=== PATIENT | female | born 1955 | race Hispanic/Latino ===

== ENCOUNTER 2017-12-29 17:13 | Inpatient (IN) | payer OTHER, MEDICARE ==
[~2017-12-29] VITALS: Ht 149.9 cm; Wt 66.7 kg
[2017-12-29] MEDS: SODIUM CHLORIDE 0.9% 1000ML 1,000 ML IV SCH (02:00)
[~2017-12-29 17:13] MED LIST: ADVIL 200 MG; AMLODIPINE BESYL5 MG PO; AMLODIPINE-BEN1 EAC3 PO; ASPIR 8181 MG PO; ATIVAN0.5 MG PO; ATIVAN1 MG PO; ATORVASTATIN CA20 MG PO; BACLOFEN10 MG PO; BENICAR20 MG PO; BENTYL10 MG PO; CEPHALEXIN500 MG PO; CYCLOBENZAPRINE10 MG PO; CYMBALTA30 MG PO; DIAZEPAM5 MG PO; DIOVAN80 MG PO; FERROUS SULFAT325 MG; FLAGYL500 MG PO; FLEXERIL10 MG PO; FUROSEMIDE20 MG PO; GABAPENTIN100 MG; GABAPENTIN100 MG PO; HYDROXYZINE HCL; KLOR-CON20 MEQ PO; LANTUS 3ML100 UNITS/ SC; LASIX20 MG PO; LEVAQUIN500 MG PO; LINZESS PO; LORATADINE10 MG PO; LORAZEPAM0.5 MG PO; METFORMIN HCL500 MG PO; METOPROLOL SUCC25 MG PO; NORCO 5-325 TA1 EACH PO; NORCO GT; NORVASC5 MG PO; NOVOLOG100 UNIT/3 SQ; PANTOPRAZOLE SO40 MG PO; TESSALON PERLE100 MG PO; TIZANIDINE HCL4 MG PO; TRAMADOL HCL50 MG; TRAMADOL-ACETAMI1 EA PO; TYLENOL PO; VERAPAMIL 40 MG; Z.0.AMBIEN10 MG PO; Z.0.CIPRO500 MG PO; Z.0.DICYCLOMINE HCL2 PO; Z.0.LANTUS 3ML100 UN SQ; Z.0.LORAZEPAM1 MG PO; Z.0.METRONIDAZOLE500 PO; Z.0.OMEPRAZOLE40 MG PO; Z.0.PROMETHAZINE HC2 PO; ZANTAC150 MG; ZOFRAN ODT4 MG PO; diovan
[2017-12-29] MEDS ORDERED: SODIUM CHLORIDE 0.9% 1000ML 1,000 ML IV STA (18:02)
[2017-12-29] MEDS ORDERED: MORPHINE SULFATE INJ 4 MG/ML INJ IV ONE (18:33)
[2017-12-29] MEDS ORDERED: ONDANSETRON HCL INJ 2 MG/ML VIAL IV ONE (18:33)
[2017-12-29 18:36] LABS: CLARITY,URINE CLOUDY (CLEAR); COLOR,URINE YELLOW (YELLOW); LEUKOCYTE ESTERASE ,URINE 1+ (NEGATIVE); NITRITE,URINE POSITIVE (NEGATIVE); PROTEIN,URINE DIPSTICK NEGATIVE (NEGATIVE)
[2017-12-29 18:37] LABS: BILIRUBIN,URINE NEGATIVE (NEGATIVE); KETONES,URINE NEGATIVE (NEGATIVE); URINE UROBILINOGEN 0.2 mg/dL (0.2 - 1)
[2017-12-29] MEDS ORDERED: DIATRIZOATE MEGL/DIATRIZOA SOD 30 ML BTL PO ONE (18:40)
[2017-12-29 18:44] LABS: BACTERIA,URINE MANY /HPF; EPITHELIAL CELLS,URINE FEW /LPF; MUCUS,URINE FEW (RARE); RBC,URINE 0-5 /HPF (0-5); WBC,URINE (MAN) 21-50 /HPF (0-5)
[2017-12-29 20:07] LABS: BASOPHILS # (AUTO) 0.1 (0.0-0.1); EOSINOPHILS # (AUTO) 0.2 (0.0-0.4); EOSINOPHILS % 2.3 % (0.0-6.0); HEMATOCRIT 33.4 % (34.2-44.1); HEMOGLOBIN 11.3 g/dL (12.0-16.0); LYMPHOCYTES # (AUTO) 2.4 (1.0-3.2); LYMPHOCYTES % 35.1 % (18.0-39.1); MEAN CORPUSCULAR HGB CONC 33.8 g/dL (31-35); MEAN CORPUSCULAR VOLUME 91.5 fL (81-99); MONOCYTES # (AUTO) 0.5 (0.2-0.8); MONOCYTES % 7.3 % (4.4-11.3); NEUTROPHILS # (AUTO) 3.7 (2.1-6.9); NEUTROPHILS % 54.2 % (38.7-80.0); PLATELET COUNT 237 x10e3/uL (140-360); RED BLOOD COUNT 3.65 x10e6/uL (3.6-5.1); RED CELL DISTRIBUTION WIDTH 12.9 % (11.7-14.4)
[2017-12-29 20:23] LABS: INR 1.02; PROTHROMBIN TIME 12.6 seconds (11.9-14.5)
[2017-12-29 20:24] LABS: PARTIAL THROMBOPLASTIN TIME 33.2 seconds (23.8-35.5)
[2017-12-29 20:28] LABS: ALBUMIN/GLOBULIN RATIO 1.1 (0.8-2.0); ANION GAP 14.1 mmol/L (8-16); CALCIUM 9.4 mg/dL (8.4-10.2); CREATININE, SERUM 1.24 mg/dL (0.57-1.11); POTASSIUM 4.1 mmol/L (3.5-5.1)
--- NOTE | 2017-12-29 21:03 | Diagnostic Imaging Report ---
EXAM: CT Abdomen and Pelvis WITHOUT contrast INDICATION: \S\ABDOMINAL PAIN, POSSIBLE GI BLEED R/O DIVERTICULITISY COMPARISON: CT abdomen and pelvis 09/09/2016. 04/14/2015. TECHNIQUE: Abdomen and pelvis were scanned utilizing a multidetector helical scanner from the lung base to the pubic symphysis without administration of IV contrast. Absence of intravenous contrast decreases sensitivity for detection of focal lesions and vascular pathology. Coronal and sagittal reformations were obtained. Routine protocol was performed. IV CONTRAST: None ORAL CONTRAST: Gastrografin COMPLICATIONS: None RADIATION DOSE: Total DLP: 489.72 mGy*cm Estimated effective dose: (DLP x 0.015 x size factor) mSv CTDIvol has been reviewed. It is below the limits set by the Radiation Protocol Committee (RPC). FINDINGS: LINES and TUBES: Partially visualized median sternotomy wires. LOWER THORAX: Unremarkable HEPATOBILIARY: No focal hepatic lesions. No biliary ductal dilation. GALLBLADDER: There are cholecystectomy clips. SPLEEN: No splenomegaly. PANCREAS: No focal masses or ductal dilatation. ADRENALS: No adrenal nodules KIDNEYS/URETERS: Bilateral lobulation versus scarring. No hydronephrosis. No cystic or solid mass lesions. No stones. GI TRACT: The postoperative changes of sigmoid resection. Previous colon is free of from the left retroperitoneum with majority of the bowel remaining in the midline or on the right aspect of the patient. No abnormal distention, wall thickening, or evidence of bowel obstruction. Appendix is not identified. PELVIC ORGANS/BLADDER: There are postop changes of hysterectomy. Both ovaries are not visualized. LYMPH NODES: No lymphadenopathy. VESSELS: There is mild atherosclerotic disease in the aorta and major arterial branches. Small vessel vascular calcifications. PERITONEUM / RETROPERITONEUM: No free air or fluid. BONES: Unremarkable. SOFT TISSUES: Bilateral gluteal granulomas. Right anterior Spigelian hernia measuring 1.8 x 3.8 cm with a wide neck. Multiple anterior abdominal wall diastases or protrusion of bowel. IMPRESSION: 1. Postoperative changes of the colon with previous sigmoid resection. The colon is now free from the left retroperitoneum with the majority of the colon in the midline or on the right abdomen. 2. Anterior abdominal wall eventration or protrusion of bowel. Right abdominal Spigelian hernia without evidence of incarceration. Signed by: Dr. Bernardo Mae M.D. on 12/29/2017 8:59 PM
[2017-12-29] MEDS ORDERED: MORPHINE SULFATE INJ 4 MG/ML INJ IV STA (22:45)
[2017-12-29] MEDS ORDERED: ONDANSETRON HCL INJ 2 MG/ML VIAL IV STA (23:10)
[2017-12-29] MEDS ORDERED: CEFTRIAXONE SOD 1 GM VIAL IV SCH (23:15)
[2017-12-30] VITALS (8 sets, daily range): BP systolic 153–192; BP diastolic 66–85
[2017-12-30] MEDS: PIPER-TAZ 3.375 GM 50 ML IV SCH ×4 (01:37→22:00)
[2017-12-30] MEDS: SODIUM CHLORIDE 0.9% 1000ML 1,000 ML IV SCH ×2 (02:00→13:38)
[2017-12-30 02:24] LABS: HEMOGLOBIN 10.3 g/dL (12.0-16.0)
[2017-12-30] MEDS: ONDANSETRON HCL INJ 2 MG/ML VIAL IV PRN ×3 (04:49→21:15)
[2017-12-30] MEDS: MORPHINE SULFATE 2 MG/ML SYR IV PRN ×4 (04:51→21:49)
[2017-12-30 05:54] LABS: BASOPHILS % 0.6 % (0.0-1.0); EOSINOPHILS # (AUTO) 0.2 (0.0-0.4); EOSINOPHILS % 3.3 % (0.0-6.0); HEMATOCRIT 30.9 % (34.2-44.1); HEMOGLOBIN 10.3 g/dL (12.0-16.0); LYMPHOCYTES # (AUTO) 2.2 (1.0-3.2); MEAN CORPUSCULAR HEMOGLOBIN 31.3 pg (28-32); MEAN CORPUSCULAR HGB CONC 33.3 g/dL (31-35); MEAN CORPUSCULAR VOLUME 93.9 fL (81-99); MONOCYTES # (AUTO) 0.5 (0.2-0.8); MONOCYTES % 7.8 % (4.4-11.3); NEUTROPHILS # (AUTO) 3.3 (2.1-6.9); NEUTROPHILS % 52.8 % (38.7-80.0); PLATELET COUNT 218 x10e3/uL (140-360); RED BLOOD COUNT 3.29 x10e6/uL (3.6-5.1); RED CELL DISTRIBUTION WIDTH 12.9 % (11.7-14.4)
[2017-12-30 06:18] LABS: ALBUMIN 3.7 g/dL (3.5-5.0); ALBUMIN/GLOBULIN RATIO 1.2 (0.8-2.0); ANION GAP 9.4 mmol/L (8-16); CALCIUM 8.8 mg/dL (8.4-10.2); CREATININE, SERUM 1.07 mg/dL (0.57-1.11); POTASSIUM 4.4 mmol/L (3.5-5.1)
[2017-12-30] MEDS ORDERED: GABAPENTIN100 MG PO (07:09)
[2017-12-30] MEDS ORDERED: TAMSULOSIN HCL0.4 MG PO (07:09)
[2017-12-30] MEDS ORDERED: FUROSEMIDE40 MG PO (07:09)
[2017-12-30] MEDS ORDERED: HUMALOG100 UNIT/1 SC (07:09)
[2017-12-30] MEDS ORDERED: FOLIC ACID1 MG PO (07:09)
[2017-12-30] MEDS ORDERED: FERROUS SULFAT325 MG PO (07:09)
[2017-12-30] MEDS ORDERED: TIZANIDINE HCL4 M1 PO (07:09)
[2017-12-30] MEDS ORDERED: RANITIDINE HCL150 M1 PO (07:09)
[2017-12-30] MEDS ORDERED: CYMBALTA30 MG PO (07:09)
[2017-12-30] MEDS ORDERED: ALPRAZOLAM0.5 M1 PO (07:09)
[2017-12-30] MEDS ORDERED: BENZONATATE 100 MG CAP PO PRN (07:30)
--- NOTE | 2017-12-30 07:46 | History and Physical ---
Patient is a 62-year-old lady with a history of GI problems, coronary artery disease, was in her usual state of health until she started to have pain described as right upper quadrant and sharp in nature, and also associated with some bleeding too, which was quantified as rectal bleeding of small amounts, and also moderate amount of black tarry stools. The patient had symptoms like this before after her cardiac surgery, and did have to have an exploratory laparotomy and a colostomy after a GI bleed. PAST MEDICAL HISTORY: History of hypertension, history of hyperlipidemia, history of diverticulitis, history of diabetes mellitus, history of chronic low back pain, history of depression, history of anxiety, history of constipation, history of CHF too. MEDICATIONS: She takes at home are: 1. Alprazolam 0.5 mg. 2. Amlodipine. 3. Benazepril. 4. Aspirin. 5. Atorvastatin. 6. Benzonatate. 7. Dicyclomine. 8. Duloxetine. 9. Ferrous sulfate. 10. Folic acid. 11. Furosemide 20 mg. 12. Insulin glargine. 13. Levaquin. 14. Lorazepam. 15. Metformin. 16. Metoprolol. 17. Metronidazole. 18. Ondansetron. 19. Pantoprazole. 20. Ranitidine. 21. Tamsulosin. 22. Tizanidine. 23. Tramadol. 24. Losartan. SURGICAL HISTORY: History of bowel surgery with resection, coronary artery bypass, history of colostomy with takedown times 2, right knee surgery. ALLERGIES: CEPHALOSPORINS AND SULFA. THE PATIENT IS ALSO ALLERGIC TO KETORALAC. SOCIAL HISTORY: History of nonsmoker. Occasional alcohol use. FAMILY HISTORY: Diabetes and hypertension in the family. PHYSICAL EXAMINATION GENERAL: The patient is alert and oriented times 3. VITAL SIGNS: Temperature is 96.5, blood pressure is 153/63. HEENT: Normocephalic and atraumatic. Pupils reactive to light and accommodation. CV: S1 and S2 normal. Regular rate and rhythm. ABDOMEN: Tender in the right upper quadrant. BACK: Tenderness throughout. No CVA tenderness. EXTREMITIES: No clubbing. No cyanosis. No edema. NEURO: Alert and oriented times 3. Initial CT showed postoperative changes consistent with previous bowel resection. Colon is now free from the left retroperitoneum with the majority of the colon in the midline of the right abdomen. Anterior abdominal wall infiltration of the bowel. Right abdominal spigelian hernia without evidence of incarceration. LABORATORY TESTS: Hemoglobin is 11.3, hematocrit 33.4. Chemistry: Sodium 134, BUN was 27 and creatinine 1.24. UA with negative bacteria. ASSESSMENT 1. Acute right upper quadrant pain. 2. Occult gastrointestinal bleed with melena. 3. Anemia of blood loss. 4. Chronic renal insufficiency. 5. Acute urinary tract infection. 6. Coronary artery disease. 7. Diabetes mellitus. 8. History of multiple chronic problems, including back pain. PLAN: The patient is on Zosyn right now, and also on morphine, ondansetron, sodium chloride, and pantoprazole. GI has been consulted. We will restart her cardiac medicine except for her . Will continue monitoring the patient and possible EGD today. Job#: [id number] TAMRA
[2017-12-30] MEDS: TAMSULOSIN HCL 0.4 MG CAP PO SCH (09:00)
[2017-12-30] MEDS: GABAPENTIN 100 MG CAP PO SCH (09:00)
[2017-12-30] MEDS: DULOXETINE HCL 30 MG DELAYED RELEASE PO SCH (09:00)
[2017-12-30] MEDS: VALSARTAN 80 MG TAB PO SCH (09:00)
[2017-12-30] MEDS: FOLIC ACID 1 MG TAB PO SCH (09:00)
[2017-12-30] MEDS ORDERED: FUROSEMIDE 20 MG TAB PO SCH (09:00)
[2017-12-30] MEDS: METOPROLOL SUCCINATE 25 MG TAB XL PO SCH ×2 (09:00→17:00)
[2017-12-30] MEDS: ALPRAZOLAM 0.5 MG TAB PO SCH ×2 (09:00→17:00)
[2017-12-30] MEDS: FUROSEMIDE 40 MG TAB PO SCH ×2 (09:00→17:00)
[2017-12-30] MEDS: PANTOPRAZOLE 40 MG 10ML VIAL IV SCH ×2 (09:11→17:00)
[2017-12-30 10:37] LABS: IRON 98 ug/dL (50-170)
[2017-12-30 12:05] LABS: HEMATOCRIT 31.5 % (34.2-44.1); HEMOGLOBIN 10.6 g/dL (12.0-16.0)
[2017-12-30] MEDS ORDERED: HYDRALAZINE HCL 20 MG/ML VIAL IV PRN (16:30)
[2017-12-30] MEDS: METOPROLOL TARTRATE INJ 1 MG/ML VIAL IV PRN (17:01)
[2017-12-30 19:36] LABS: HEMATOCRIT 31.7 % (34.2-44.1); HEMOGLOBIN 10.8 g/dL (12.0-16.0)
[2017-12-30] MEDS ORDERED: ATORVASTATIN 20 MG TAB PO SCH (21:00)
[2017-12-30] MEDS: INSULIN DETEMIR 100 UNIT/ML PEN SQ SCH (21:00)
[2017-12-30] MEDS: ATORVASTATIN 40 MG TAB PO SCH (21:00)
--- NOTE | 2017-12-30 21:33 | Consultation ---
DATE OF CONSULTATION: December 30, 2017 GI CONSULT NOTE REFERRING PHYSICIAN: Phong Malik MD REASON FOR CONSULT: Melena for 3 to 4 days. HISTORY OF PRESENTING ILLNESS: [id number] very pleasant female with past medical history of hypertension, hyperlipidemia, type 2 diabetes, coronary artery disease status post CABG, history of bowel surgeries with colostomies, colostomy takedown x2. She has been passing dark stool for last couple of days. Denies any prior history of peptic ulcer disease. She is not chronically on any NSAIDs. No associated abdominal pain. Hemodynamically stable. Hemoglobin was 11.3 that subsequently dropped down to 10.8. Stool has been tested heme positive. She is on Protonix IV twice daily. GI has been consulted for evaluation of melena. REVIEW OF SYSTEMS: Twelve-point system reviewed, symptomatology is limited to GI system. PAST MEDICAL HISTORY: Hypertension, hyperlipidemia, history of diverticulitis, type 2 diabetes, chronic low backache, depression, anxiety, chronic constipation, history of congestive heart failure. PAST SURGICAL HISTORY: Exploratory laparotomy with some bowel surgery x2, what patient describes seems likely she has had a perforated diverticulitis requiring colonic resection, followed by colostomy, colostomy takedown already done. CABG. FAMILY HISTORY: Noncontributory. Negative for any GI or [employer] malignancies. SOCIAL HISTORY: No smoking, seldom drinks alcohol, never used any illicit drugs. ALLERGIES: CEPHALOSPORIN AND SULFA. HOME MEDICATIONS: Reviewed MAR. She is on extensive list of medications. Inpatient medication list also reviewed. PHYSICAL EXAMINATION: VITAL SIGNS: Temperature 97.3, pulse 72, respiration 20, blood pressure 192/81, oxygen saturation 100% on room air. GENERAL: Not in any acute distress. HEENT: Moist mucous membranes. Anicteric sclerae. NECK: No neck or axillary adenopathy. CVS: S1 and S2. Regular. LUNGS: Bilaterally grossly clear. ABDOMEN: Soft. Healed midline laparotomy scar. Nondistended, nontender. No mass or hernia. Positive bowel sounds. EXTREMITIES: Warm. No leg edema. LAB: WBC 6.83; hemoglobin 11.3, subsequently dropped down to 10.8; hematocrit 33.4; MCV 91.5; platelet count 237,000. PT 12.6, INR 1.02, PTT 33.2. Sodium 139, potassium 4.4, chloride 112, bicarb 22, BUN 26, creatinine 1.07. Liver enzymes normal. Stool occult positive. CT of the abdomen and pelvis without contrast showed: 1. Postoperative changes of colon with previous sigmoid resection. The colon is now free from left retroperitoneum with majority of the colon in the midline or on the right abdomen. 2. Anterior abdominal wall eventration or protrusion of bowel. Right abdominal spigelian hernia without evidence of incarceration. IMPRESSION: Melena, hemodynamically stable without significant drop in hemoglobin. Stool is also hemoccult positive. PLAN: I do not suspect any active GI bleeding, therefore do not recommend to give her any PPI infusion. Clear liquid diet. EGD by my associate Dr. La tomorrow. Further recommendations based upon endoscopic findings. I thank Dr. Malik for allowing me to participate in the care of this patient. Job#: [id number]
[2017-12-31] VITALS (7 sets, daily range): BP systolic 131–176; BP diastolic 60–73
[2017-12-31] MEDS: MORPHINE SULFATE 2 MG/ML SYR IV PRN ×4 (04:07→22:00)
[2017-12-31] MEDS: ONDANSETRON HCL INJ 2 MG/ML VIAL IV PRN ×4 (04:07→22:00)
[2017-12-31 05:38] LABS: BASOPHILS % 0.6 % (0.0-1.0); EOSINOPHILS # (AUTO) 0.2 (0.0-0.4); EOSINOPHILS % 3.5 % (0.0-6.0); HEMATOCRIT 31.1 % (34.2-44.1); HEMOGLOBIN 10.1 g/dL (12.0-16.0); LYMPHOCYTES # (AUTO) 1.5 (1.0-3.2); LYMPHOCYTES % 29.7 % (18.0-39.1); MEAN CORPUSCULAR HEMOGLOBIN 30.4 pg (28-32); MEAN CORPUSCULAR HGB CONC 32.5 g/dL (31-35); MEAN CORPUSCULAR VOLUME 93.7 fL (81-99); MONOCYTES # (AUTO) 0.3 (0.2-0.8); MONOCYTES % 6.5 % (4.4-11.3); NEUTROPHILS % 59.5 % (38.7-80.0); PLATELET COUNT 213 x10e3/uL (140-360); RED BLOOD COUNT 3.32 x10e6/uL (3.6-5.1); RED CELL DISTRIBUTION WIDTH 12.9 % (11.7-14.4)
[2017-12-31] MEDS: PIPER-TAZ 3.375 GM 50 ML IV SCH ×3 (05:39→21:50)
[2017-12-31 06:01] LABS: ALBUMIN 3.6 g/dL (3.5-5.0); ALBUMIN/GLOBULIN RATIO 1.1 (0.8-2.0); ANION GAP 10.4 mmol/L (8-16); CALCIUM 9.1 mg/dL (8.4-10.2); CREATININE, SERUM 0.98 mg/dL (0.57-1.11); POTASSIUM 4.4 mmol/L (3.5-5.1)
[2017-12-31 09:02] LABS: % IRON SATURATION 27 % (15-50); TOTAL IRON BINDING CAPACITY 360 ug/dL (261-478); TRANSFERRIN 257 mg/dL (180-382)
[2017-12-31] MEDS: PANTOPRAZOLE 40 MG 10ML VIAL IV SCH ×2 (09:22→15:42)
[2017-12-31] MEDS: METOPROLOL SUCCINATE 25 MG TAB XL PO SCH ×2 (09:22→16:09)
[2017-12-31] MEDS: TAMSULOSIN HCL 0.4 MG CAP PO SCH (09:22)
[2017-12-31] MEDS: VALSARTAN 80 MG TAB PO SCH (09:22)
[2017-12-31] MEDS: ALPRAZOLAM 0.5 MG TAB PO SCH ×2 (09:22→16:09)
[2017-12-31] MEDS: DULOXETINE HCL 30 MG DELAYED RELEASE PO SCH (09:22)
[2017-12-31] MEDS: GABAPENTIN 100 MG CAP PO SCH (09:22)
[2017-12-31] MEDS: FOLIC ACID 1 MG TAB PO SCH (09:22)
[2017-12-31] MEDS: FUROSEMIDE 40 MG TAB PO SCH ×2 (09:35→16:07)
[2017-12-31] MEDS: SODIUM CHLORIDE 0.9% 1000ML 1,000 ML IV SCH ×3 (09:35→22:53)
[2017-12-31 11:58] LABS: HEMATOCRIT 32.6 % (34.2-44.1); HEMOGLOBIN 10.9 g/dL (12.0-16.0)
[2017-12-31] MEDS: SUCRALFATE 1 GM TAB PO SCH ×2 (15:42→21:50)
[2017-12-31] MEDS ORDERED: PROPOFOL IV EMULSION 10 MG/ML 20 ML VIAL ONE (17:41)
[2017-12-31] MEDS ORDERED: LIDOCAINE HCL 2% LOCAL INJ 5 ML SDV VIAL INJ ONE (17:41)
[2017-12-31 18:29] LABS: HEMATOCRIT 33.3 % (34.2-44.1); HEMOGLOBIN 11.3 g/dL (12.0-16.0)
[2017-12-31] MEDS ORDERED: FENTANYL CITRATE/PF 100MCG/2 ML INJ ONE (20:12)
[2017-12-31] MEDS ORDERED: MIDAZOLAM HCL 2 MG/2 ML VIAL ONE (20:12)
[2017-12-31] MEDS: ATORVASTATIN 40 MG TAB PO SCH (21:50)
[2017-12-31] MEDS: INSULIN DETEMIR 100 UNIT/ML PEN SQ SCH (21:50)
[2018-01-01] VITALS (8 sets, daily range): BP systolic 121–158; BP diastolic 59–68
[2018-01-01] MEDS: MORPHINE SULFATE 2 MG/ML SYR IV PRN ×3 (04:23→21:32)
[2018-01-01] MEDS: SODIUM CHLORIDE 0.9% 1000ML 1,000 ML IV SCH ×3 (04:23→22:53)
[2018-01-01] MEDS: ONDANSETRON HCL INJ 2 MG/ML VIAL IV PRN ×3 (04:23→21:32)
[2018-01-01] MEDS: PIPER-TAZ 3.375 GM 50 ML IV SCH ×3 (05:02→21:32)
[2018-01-01 05:40] LABS: BASOPHILS # (AUTO) 0.1 (0.0-0.1); EOSINOPHILS # (AUTO) 0.2 (0.0-0.4); EOSINOPHILS % 3.6 % (0.0-6.0); HEMATOCRIT 30.6 % (34.2-44.1); HEMOGLOBIN 10.7 g/dL (12.0-16.0); LYMPHOCYTES # (AUTO) 1.4 (1.0-3.2); MEAN CORPUSCULAR HEMOGLOBIN 31.7 pg (28-32); MEAN CORPUSCULAR VOLUME 90.5 fL (81-99); MONOCYTES # (AUTO) 0.5 (0.2-0.8); MONOCYTES % 9.3 % (4.4-11.3); NEUTROPHILS # (AUTO) 2.8 (2.1-6.9); NEUTROPHILS % 56.9 % (38.7-80.0); PLATELET COUNT 200 x10e3/uL (140-360); RED BLOOD COUNT 3.38 x10e6/uL (3.6-5.1); RED CELL DISTRIBUTION WIDTH 12.7 % (11.7-14.4)
[2018-01-01] MEDS: METOPROLOL SUCCINATE 25 MG TAB XL PO SCH ×2 (09:00→17:00)
[2018-01-01] MEDS: PANTOPRAZOLE 40 MG 10ML VIAL IV SCH ×2 (09:39→17:00)
[2018-01-01] MEDS: SUCRALFATE 1 GM TAB PO SCH ×4 (09:39→21:32)
[2018-01-01] MEDS: DULOXETINE HCL 30 MG DELAYED RELEASE PO SCH (09:39)
[2018-01-01] MEDS: VALSARTAN 80 MG TAB PO SCH (09:39)
[2018-01-01] MEDS: FUROSEMIDE 40 MG TAB PO SCH ×2 (09:40→17:00)
[2018-01-01] MEDS: ALPRAZOLAM 0.5 MG TAB PO SCH ×2 (09:40→17:00)
[2018-01-01] MEDS: GABAPENTIN 100 MG CAP PO SCH (09:40)
[2018-01-01] MEDS: FOLIC ACID 1 MG TAB PO SCH (09:40)
[2018-01-01] MEDS: TAMSULOSIN HCL 0.4 MG CAP PO SCH (09:40)
[2018-01-01 12:00] LABS: HEMATOCRIT 31.4 % (34.2-44.1); HEMOGLOBIN 10.6 g/dL (12.0-16.0)
[2018-01-01] MEDS: INSULIN REGULAR, HUMAN 100 UNIT/1 ML 3ML VIAL SQ SCH ×3 (12:45→21:32)
[2018-01-01] MEDS ORDERED: DEXTROSE 50% SYRINGE 50 ML IV PRN (12:45)
[2018-01-01] MEDS: INSULIN DETEMIR 100 UNIT/ML PEN SQ SCH (21:32)
[2018-01-01] MEDS: ATORVASTATIN 40 MG TAB PO SCH (21:32)
[2018-01-01] MEDS: DIPHENOXYLATE/ATROPINE TAB PO PRN (22:44)
[2018-01-02] VITALS (7 sets, daily range): BP systolic 106–150; BP diastolic 51–65
[2018-01-02] MEDS: SODIUM CHLORIDE 0.9% 1000ML 1,000 ML IV SCH ×3 (01:54→22:57)
[2018-01-02] MEDS: MORPHINE SULFATE 2 MG/ML SYR IV PRN ×4 (03:45→20:11)
[2018-01-02] MEDS: ONDANSETRON HCL INJ 2 MG/ML VIAL IV PRN ×3 (03:45→20:10)
[2018-01-02] MEDS: PIPER-TAZ 3.375 GM 50 ML IV SCH ×3 (05:35→22:00)
[2018-01-02] MEDS: INSULIN REGULAR, HUMAN 100 UNIT/1 ML 3ML VIAL SQ SCH ×4 (07:30→21:30)
[2018-01-02] MEDS: SUCRALFATE 1 GM TAB PO SCH ×4 (08:22→21:30)
[2018-01-02] MEDS: FOLIC ACID 1 MG TAB PO SCH (08:22)
[2018-01-02] MEDS: FUROSEMIDE 40 MG TAB PO SCH ×2 (08:22→17:00)
[2018-01-02] MEDS: PANTOPRAZOLE 40 MG 10ML VIAL IV SCH (08:22)
[2018-01-02] MEDS: GABAPENTIN 100 MG CAP PO SCH (08:22)
[2018-01-02] MEDS: ALPRAZOLAM 0.5 MG TAB PO SCH ×2 (08:22→17:00)
[2018-01-02] MEDS: TAMSULOSIN HCL 0.4 MG CAP PO SCH (08:22)
[2018-01-02] MEDS: VALSARTAN 80 MG TAB PO SCH (08:23)
[2018-01-02] MEDS: DULOXETINE HCL 30 MG DELAYED RELEASE PO SCH (08:23)
[2018-01-02] MEDS: METOPROLOL SUCCINATE 25 MG TAB XL PO SCH ×2 (08:23→17:00)
[2018-01-02] MEDS: DIPHENOXYLATE/ATROPINE TAB PO PRN (11:24)
--- NOTE | 2018-01-02 20:25 | Progress Note ---
DATE: January 02, 2018 GASTROENTEROLOGY PROGRESS NOTE SUBJECTIVE: Patient continues to complain about intermittently persistent severe right lower quadrant pain. She is requiring Dilaudid almost every 4 hours. No associated nausea or vomiting. She is also having frequent watery diarrhea. Stool has been tested negative for C. diff. Stool is light brown. No blood. It is no longer dark. REVIEW OF SYSTEMS GENERAL: No fever or chills. RESPIRATORY: No cough or expectoration. CV: No chest pain or palpitations. MEDICATIONS: Reviewed as per AUG. On pantoprazole 40 mg twice daily. PHYSICAL EXAMINATION VITAL SIGNS: Temperature 96.9, pulse 61, respirations 18, blood pressure 130/60, oxygen saturation 99% on room air. GENERAL: Seems to be in acute distress. HEENT: Oral mucosa is moist. Anicteric sclerae. CVS: S1 and S2 regular. LUNGS: Bilaterally grossly clear. ABDOMEN: Soft. Palpable localized right lower quadrant tenderness with some guarding without any rebound or any rigidity. Left lower quadrant exam is completely benign. Bowel sounds present. EXTREMITIES: Warm. No leg edema. LABS: Hemoglobin remains stable from 11.3, 10.7 and 10.6. IMPRESSION 1. Melena secondary to gastric ulcer: Hemoglobin is stable. Melena resolved. 2. New-onset diarrhea, Clostridium difficile ruled out. 3. Right lower quadrant pain concerning for possible appendicitis: The computerized tomography done on this admission with intravenous and oral contrast failed to visualize the appendix. PLAN: From GI standpoint, agree to continue PPI twice daily. Avoid NSAIDs. Urgent surgery consult to rule out appendicitis. Continue supportive care. In the interim, keep the patient n.p.o. until seen by surgeon. Job#: [id number] OR
[2018-01-02] MEDS: INSULIN DETEMIR 100 UNIT/ML PEN SQ SCH (21:00)
--- NOTE | 2018-01-02 21:26 | Consultation ---
DATE OF CONSULTATION: January 02, 2018 CHIEF COMPLAINT: Abdominal pain. HISTORY OF PRESENT ILLNESS: The patient is a 63-year-old female with history of chronic right lower quadrant abdominal pain for a days with diarrhea. Patient states she had noticed some bleeding per rectum also with dark stool. Patient had a history of hypertension, hyperlipidemia, coronary artery disease, diabetes, diverticulitis, congestive heart failure, anxiety. SURGICAL HISTORY: Positive for coronary artery bypass graft, colon resection with colostomy, knee surgery. ALLERGIES: CEPHALOSPORIN AND SULFA AND ALSO TORADOL. SOCIAL HABITS: No smoking. Social drinking only. REVIEW OF SYSTEMS: No chest pain or shortness of breath. EXAM VITALS: Stable. Afebrile. GENERAL: Patient is awake, alert, in [id number] discomfort. HEENT: Sclerae nonicteric. NECK: Supple. LUNGS: Clear. HEART: Regular rate and rhythm. ABDOMEN: Soft. There is some guarding, tenderness in the right lower quadrant without rebound. EXTREMITIES: Without cyanosis, edema. Hemoglobin of 10, white cell count of 5. Creatinine is 0.9. Liver function test unremarkable. Lipase 13. CT of the abdomen showed status post colon surgery, abdominal Spigelian hernia on the right without incarceration. ASSESSMENT: Abdominal pain and diarrhea and melena. Gastrointestinal workup in progress. PLAN: Await colonoscopy. Patient may need diagnostic laparoscopy and possible repair of Spigelian hernia. Thank you for consultation. Job#: [id number]
[2018-01-02] MEDS: ATORVASTATIN 40 MG TAB PO SCH (21:30)
[2018-01-02] MEDS: LORAZEPAM 0.5 MG TAB PO PRN (22:50)
[2018-01-03] VITALS (7 sets, daily range): BP systolic 119–169; BP diastolic 58–95
[2018-01-03] MEDS: ONDANSETRON HCL INJ 2 MG/ML VIAL IV PRN ×4 (00:45→21:50)
[2018-01-03] MEDS: MORPHINE SULFATE 2 MG/ML SYR IV PRN ×6 (00:50→21:50)
[2018-01-03] MEDS: PIPER-TAZ 3.375 GM 50 ML IV SCH ×3 (05:30→22:04)
[2018-01-03] MEDS: SODIUM CHLORIDE 0.9% 1000ML 1,000 ML IV SCH ×3 (06:50→18:30)
[2018-01-03] MEDS: INSULIN REGULAR, HUMAN 100 UNIT/1 ML 3ML VIAL SQ SCH ×4 (07:30→21:10)
[2018-01-03] MEDS: SUCRALFATE 1 GM TAB PO SCH ×4 (07:30→21:03)
[2018-01-03] MEDS: FOLIC ACID 1 MG TAB PO SCH (07:36)
[2018-01-03] MEDS: TAMSULOSIN HCL 0.4 MG CAP PO SCH (07:36)
[2018-01-03] MEDS: VALSARTAN 80 MG TAB PO SCH (07:36)
[2018-01-03] MEDS: DULOXETINE HCL 30 MG DELAYED RELEASE PO SCH (07:36)
[2018-01-03] MEDS: GABAPENTIN 100 MG CAP PO SCH (07:37)
[2018-01-03] MEDS: PANTOPRAZOLE 40 MG 10ML VIAL IV SCH ×2 (07:56→17:07)
[2018-01-03] MEDS: FUROSEMIDE 40 MG TAB PO SCH ×2 (09:00→17:07)
[2018-01-03] MEDS ORDERED: PANTOPRAZOLE SOD 40 MG TABEC PO SCH (09:00)
[2018-01-03] MEDS: METOPROLOL SUCCINATE 25 MG TAB XL PO SCH ×2 (09:00→17:07)
[2018-01-03] MEDS: ALPRAZOLAM 0.5 MG TAB PO SCH ×2 (09:00→17:07)
[2018-01-03] MEDS ORDERED: BUPIVACAINE 0.5%/EPI 30 ML SDV INJ ONE (14:02)
[2018-01-03 16:01] LABS: CREATINE KINASE MB 1.7 ng/mL (0-5.0)
[2018-01-03] MEDS: ATORVASTATIN 40 MG TAB PO SCH (21:03)
[2018-01-03] MEDS: INSULIN DETEMIR 100 UNIT/ML PEN SQ SCH (21:10)
[2018-01-03] MEDS: LORAZEPAM 0.5 MG TAB PO PRN (22:04)
[2018-01-04 00:57] VITALS: BP 156/65
[2018-01-04] MEDS: MORPHINE SULFATE 2 MG/ML SYR IV PRN ×6 (02:11→23:32)
[2018-01-04 04:00] VITALS: BP 157/67
[2018-01-04] MEDS: PIPER-TAZ 3.375 GM 50 ML IV SCH ×3 (06:12→21:55)
[2018-01-04] MEDS: SODIUM CHLORIDE 0.9% 1000ML 1,000 ML IV SCH ×3 (06:12→23:26)
[2018-01-04] MEDS: ONDANSETRON HCL INJ 2 MG/ML VIAL IV PRN ×3 (06:12→18:50)
[2018-01-04 08:20] VITALS: BP 140/62
[2018-01-04] MEDS: PANTOPRAZOLE 40 MG 10ML VIAL IV SCH ×2 (08:27→17:26)
[2018-01-04] MEDS: SUCRALFATE 1 GM TAB PO SCH ×4 (08:27→20:30)
[2018-01-04] MEDS: METOPROLOL SUCCINATE 25 MG TAB XL PO SCH ×2 (08:27→17:26)
[2018-01-04] MEDS: ALPRAZOLAM 0.5 MG TAB PO SCH ×2 (08:27→17:26)
[2018-01-04] MEDS: VALSARTAN 80 MG TAB PO SCH (08:27)
[2018-01-04] MEDS: FUROSEMIDE 40 MG TAB PO SCH ×2 (08:27→17:26)
[2018-01-04] MEDS: GABAPENTIN 100 MG CAP PO SCH (08:27)
[2018-01-04] MEDS: DULOXETINE HCL 30 MG DELAYED RELEASE PO SCH (08:27)
[2018-01-04] MEDS: TAMSULOSIN HCL 0.4 MG CAP PO SCH (08:27)
[2018-01-04] MEDS: FOLIC ACID 1 MG TAB PO SCH (08:27)
[2018-01-04] MEDS: INSULIN REGULAR, HUMAN 100 UNIT/1 ML 3ML VIAL SQ SCH ×4 (08:32→20:30)
--- NOTE | 2018-01-04 10:55 | Consultation ---
DATE OF CONSULTATION: CARDIOLOGY CONSULTATION CONSULTING PHYSICIAN: Dr. Phong Malik REASON FOR CONSULTATION: Ongoing cardiac care. HISTORY OF PRESENT ILLNESS: Ms. Redmond is a patient that is well known to our practice. She is 63-year-old female with a pertinent past medical history of ongoing GI problem, coronary artery disease status post coronary artery bypass in October of 2016. She states that she came into the hospital due to noticing very dark stool and also abdominal pain and nausea, and for these reason, she sought care. At this present time, she denies any chest pain, shortness of breath, palpitation, cough, edema, orthopnea, or dizziness. She does endorse some ongoing nausea. PAST MEDICAL HISTORY: Includes hypertension, hyperlipidemia, diverticulitis, diabetes mellitus, chronic low back pain, depression, anxiety, constipation, CAD status post bypass. PAST SURGICAL HISTORY: Includes bowel surgery with resection, coronary artery disease status post coronary artery bypass, history of colostomy, right knee surgery. SOCIAL HISTORY: with children. Nonsmoker, uses and drinks alcohol occasionally. FAMILY HISTORY: Pertinent for diabetes and hypertension. CARDIOVASCULAR MEDICATIONS: 1. Losartan 80 mg p.o. daily. 2. Metoprolol 25 mg p.o. daily. 3. Gabapentin 100 mg p.o. daily. 4. Furosemide 40 mg p.o. b.i.d. 5. Atorvastatin 40 mg p.o. at bedtime. LABS: No new labs today. CT scan from December 29, 2017 with postoperative changes of the colon with previous sigmoid resection. The colon is now free from left retroperitoneum with the majority of the colon in the midline or on the right abdomen, anterior abdominal wall eventration or protrusion of bowel, right abdominal spigelian hernia without evidence of incarceration. TELEMETRY: Sinus rhythm. PHYSICAL EXAMINATION: VITAL SIGNS: Temperature 97.4, pulse 66, respiratory rate 18, blood pressure 140/62, oxygen saturation 98% on room air. GENERAL: Alert and oriented x3, resting comfortably in bed, does not appear to be in any acute distress. LUNGS: Clear to auscultation throughout. No wheezing or rhonchi or crackles. CARDIOVASCULAR: Regular rate and rhythm. Normal S1, S2. No S3 or S4 auscultated. ABDOMEN: Nontender. Normoactive bowel sounds. EXTREMITIES: Lower extremities 2+ pedal pulses, no edema. ASSESSMENT: 1. Spigelian hernia. 2. Coronary artery disease status post coronary artery bypass graft. 3. History of congestive heart failure with a recent normal ejection fraction in the office. 4. Hypertension. 5. Hyperlipidemia. 6. Urinary tract infection. 7. Chronic renal insufficiency. 8. Gastrointestinal bleeding with melena. PLAN: From a cardiac standpoint, patient okay to undergo hernia repair. Continue the above list of cardiac medication. Maintain patient on telemetry. Continue antimicrobial therapy and pain management per primary team. Will continue to follow this patient very closely. Thank you for this consultation. Dictated By: Amanda Bone NP Job#: [id number]
[2018-01-04 11:55] VITALS: BP 172/68
[2018-01-04 16:56] VITALS: BP 148/62
[2018-01-04 20:00] VITALS: BP 155/70
[2018-01-04] MEDS: HYDROMORPHONE 1MG/1ML INJ IV PRN (20:23)
[2018-01-04] MEDS: ATORVASTATIN 40 MG TAB PO SCH (20:30)
[2018-01-04] MEDS: INSULIN DETEMIR 100 UNIT/ML PEN SQ SCH (21:30)
[2018-01-04] MEDS: LORAZEPAM 0.5 MG TAB PO PRN (23:32)
[2018-01-05] VITALS: BP 166/74
[2018-01-05] MEDS: HYDROMORPHONE 1MG/1ML INJ IV PRN ×3 (01:09→19:52)
[2018-01-05] MEDS: ONDANSETRON HCL INJ 2 MG/ML VIAL IV PRN ×2 (01:09→19:52)
[2018-01-05 04:00] VITALS: BP 158/68
[2018-01-05] MEDS ORDERED: DIPHENHYDRAMINE HCL INJ 50 MG/ML VIAL IM ONE (06:15)
[2018-01-05] MEDS: SODIUM CHLORIDE 0.9% 1000ML 1,000 ML IV SCH ×3 (06:21→22:53)
[2018-01-05] MEDS: PIPER-TAZ 3.375 GM 50 ML IV SCH ×3 (06:21→22:09)
[2018-01-05] MEDS: INSULIN REGULAR, HUMAN 100 UNIT/1 ML 3ML VIAL SQ SCH ×4 (07:30→21:00)
[2018-01-05] MEDS: SUCRALFATE 1 GM TAB PO SCH ×4 (07:30→20:20)
[2018-01-05 07:43] VITALS: BP 160/67
[2018-01-05 08:24] VITALS: BP 160/67
[2018-01-05] MEDS: PANTOPRAZOLE 40 MG 10ML VIAL IV SCH ×2 (08:24→16:00)
[2018-01-05] MEDS: TAMSULOSIN HCL 0.4 MG CAP PO SCH (09:00)
[2018-01-05] MEDS: ALPRAZOLAM 0.5 MG TAB PO SCH ×3 (09:00→22:33)
[2018-01-05] MEDS: METOPROLOL SUCCINATE 25 MG TAB XL PO SCH ×2 (09:00→17:00)
[2018-01-05] MEDS: GABAPENTIN 100 MG CAP PO SCH (09:00)
[2018-01-05] MEDS: FOLIC ACID 1 MG TAB PO SCH (09:00)
[2018-01-05] MEDS: VALSARTAN 80 MG TAB PO SCH (09:00)
[2018-01-05] MEDS: DULOXETINE HCL 30 MG DELAYED RELEASE PO SCH (09:00)
[2018-01-05] MEDS: FUROSEMIDE 40 MG TAB PO SCH ×2 (09:00→17:00)
[2018-01-05] MEDS ORDERED: BUPIVACAINE HCL 0.5% INJ 30 ML VIAL INJ ONE (11:00)
[2018-01-05] MEDS ORDERED: BACITRACIN 50,000 UNIT VIAL ONE (11:00)
[2018-01-05] MEDS ORDERED: PIPER-TAZ 3.375 GM 50 ML ONE (12:14)
[2018-01-05] MEDS ORDERED: SUGAMMADEX SODIUM 200 MG/2 ML VIAL IV ONE (13:13)
[2018-01-05] MEDS ORDERED: MORPHINE SULFATE 2 MG/ML SYR ONE ×3 (13:35→14:11)
[2018-01-05] MEDS ORDERED: LABETALOL HCL 20 ML ONE (14:28)
--- NOTE | 2018-01-05 14:29 | Operative Report ---
DATE OF PROCEDURE: January 05, 2018 PREOPERATIVE DIAGNOSIS: Right spigelian hernia. POSTOPERATIVE DIAGNOSIS: Right spigelian hernia. OPERATIVE PROCEDURE: Repair of right spigelian hernia. USER INTERFACE ARTIST: None. ANESTHESIA: General endotracheal. INDICATIONS: A 63-year-old female with a 2-week history of pain in right lower quadrant without nausea and vomiting. There was some dark stool. The patient's CT scan showed nonincarcerated right spigelian hernia. The patient has consented for repair of right spigelian hernia and possible appendectomy. PROCEDURE FINDINGS: No appendicitis noted. A right spigelian hernia with no incarceration of bowel. DESCRIPTION OF PROCEDURE: Patient was brought to the OR, intubated. Abdomen prepped with alcohol and draped in sterile fashion. A transverse scissor was made through the previous right lower quadrant ileostomy scar. Excision of the scar itself at the skin level. We then dissected down to the fascia of the external oblique. Just superior to the incision approximately 2 to 3 cm, there was a bulge in the anterior fascia. There was incised revealing the spigelian hernia with a neck approximately 2 to 3 cm in diameter. No evidence of incarcerated bowel in that area. The hernia sac was trimmed to the fascial edge using scissors. We had a 3m fascial defect, which was closed in a transverse direction. I failed to mention that prior to closure of the fascial defect the intraperitoneal exploration was carried out through the incisions. The small and large bowel identified. No appendicitis noted. No evidence of obstruction even though the small bowel was noted to be matted together with adhesions. At this point, the fascial repair was carried out with a figure-of-8 stitch of 0 Prolene suture interrupted. With fascial repair complete, operative field was irrigated. Hemostasis achieved. Subcutaneous tissue approximated 3-0 Vicryl. Skin was closed with subcuticular stitch. Dermabond applied. Patient then extubated and transported to the recovery room. Estimated blood loss less than 5 mL. Job#: [id number] DERECK
[2018-01-05] MEDS: METOPROLOL TARTRATE INJ 1 MG/ML VIAL IV PRN (16:00)
[2018-01-05 17:20] VITALS: BP 197/74
[2018-01-05] MEDS ORDERED: PROPOFOL IV EMULSION 10 MG/ML 20 ML VIAL ONE (17:32)
[2018-01-05] MEDS ORDERED: ROCURONIUM BROMIDE 10 MG/ML 5ML VIAL ONE (17:32)
[2018-01-05] MEDS ORDERED: GLYCOPYRROLATE INJ 1MG/ 5 ML SYR ONE (17:32)
[2018-01-05] MEDS ORDERED: SEVOFLURANE INHAL SOLN 250 ML PEN BTL ONE (17:32)
[2018-01-05] MEDS ORDERED: NEOSTIGMINE 5 MG/5ML SYR ONE (17:32)
[2018-01-05] MEDS ORDERED: LIDOCAINE HCL 2% LOCAL INJ 5 ML SDV VIAL INJ ONE (17:32)
[2018-01-05] MEDS ORDERED: ONDANSETRON HCL INJ 2 MG/ML VIAL ONE (17:32)
[2018-01-05] MEDS ORDERED: DEXAMETHASONE SOD PHOS INJ 4 MG/ML VIAL ONE (17:32)
[2018-01-05] MEDS ORDERED: MIDAZOLAM HCL 2 MG/2 ML VIAL ONE (17:42)
[2018-01-05] MEDS ORDERED: FENTANYL CITRATE/PF 100MCG/2 ML INJ ONE (17:42)
[2018-01-05 20:00] VITALS: BP 146/67
[2018-01-05] MEDS ORDERED: DIPHENHYDRAMINE HCL 25 MG CAP PO NR (20:15)
[2018-01-05] MEDS: ATORVASTATIN 40 MG TAB PO SCH (20:20)
[2018-01-05] MEDS: INSULIN DETEMIR 100 UNIT/ML PEN SQ SCH (21:00)
[2018-01-05] MEDS: MORPHINE SULFATE INJ 4 MG/ML INJ IV PRN (23:40)
[2018-01-06] VITALS: BP 183/79
[2018-01-06] MEDS: METOPROLOL TARTRATE INJ 1 MG/ML VIAL IV PRN (02:15)
[2018-01-06] MEDS: MORPHINE SULFATE INJ 4 MG/ML INJ IV PRN ×2 (03:44→07:44)
[2018-01-06 04:00] VITALS: BP 189/77
[2018-01-06 05:34] LABS: BASOPHILS % 0.2 % (0.0-1.0); HEMATOCRIT 28.6 % (34.2-44.1); HEMOGLOBIN 9.8 g/dL (12.0-16.0); LYMPHOCYTES # (AUTO) 1.2 (1.0-3.2); LYMPHOCYTES % 13.2 % (18.0-39.1); MEAN CORPUSCULAR HEMOGLOBIN 31.4 pg (28-32); MEAN CORPUSCULAR HGB CONC 34.3 g/dL (31-35); MEAN CORPUSCULAR VOLUME 91.7 fL (81-99); MONOCYTES # (AUTO) 0.6 (0.2-0.8); NEUTROPHILS # (AUTO) 7.1 (2.1-6.9); NEUTROPHILS % 79.2 % (38.7-80.0); PLATELET COUNT 192 x10e3/uL (140-360); RED BLOOD COUNT 3.12 x10e6/uL (3.6-5.1); RED CELL DISTRIBUTION WIDTH 12.6 % (11.7-14.4)
[2018-01-06 06:03] LABS: ANION GAP 12.5 mmol/L (8-16); CALCIUM 8.7 mg/dL (8.4-10.2); CREATININE, SERUM 1.07 mg/dL (0.57-1.11); POTASSIUM 3.5 mmol/L (3.5-5.1)
[2018-01-06] MEDS: SODIUM CHLORIDE 0.9% 1000ML 1,000 ML IV SCH ×3 (06:53→22:53)
[2018-01-06] MEDS: INSULIN REGULAR, HUMAN 100 UNIT/1 ML 3ML VIAL SQ SCH ×4 (07:30→21:00)
[2018-01-06] MEDS: SUCRALFATE 1 GM TAB PO SCH ×4 (07:30→22:42)
[2018-01-06] MEDS: GABAPENTIN 100 MG CAP PO SCH (09:00)
[2018-01-06] MEDS: METOPROLOL SUCCINATE 25 MG TAB XL PO SCH ×2 (09:00→17:00)
[2018-01-06] MEDS: DULOXETINE HCL 30 MG DELAYED RELEASE PO SCH (09:00)
[2018-01-06] MEDS: VALSARTAN 80 MG TAB PO SCH (09:00)
[2018-01-06] MEDS: FUROSEMIDE 40 MG TAB PO SCH ×2 (09:00→17:00)
[2018-01-06] MEDS: PANTOPRAZOLE 40 MG 10ML VIAL IV SCH ×2 (09:00→17:00)
[2018-01-06] MEDS: FOLIC ACID 1 MG TAB PO SCH (09:00)
[2018-01-06] MEDS: TAMSULOSIN HCL 0.4 MG CAP PO SCH (09:00)
[2018-01-06 09:48] VITALS: BP 178/73
[2018-01-06] MEDS: HYDROMORPHONE 1MG/1ML INJ IV PRN ×3 (11:46→22:42)
[2018-01-06] MEDS: ONDANSETRON HCL INJ 2 MG/ML VIAL IV PRN (18:25)
[2018-01-06 20:00] VITALS: BP 144/65
[2018-01-06] MEDS: INSULIN DETEMIR 100 UNIT/ML PEN SQ SCH (21:00)
--- NOTE | 2018-01-06 21:37 | Progress Note ---
DATE: January 05, 2018 SUBJECTIVE: No major events overnight. The patient had her hernia repair surgery today, tolerated well. Complains about some abdominal pain at the surgical site and blood pressure has been elevated due to the abdominal pain, but otherwise no chest pain or any other complaints. OBJECTIVE VITAL SIGNS: Heart rate 63, temperature 97, respiratory rate 21, blood pressure 192/71, satting 96% on room air. GENERAL: Well-nourished, well-developed, obese. CARDIOVASCULAR: PMI nondisplaced, regular. S1 and S2. No murmurs, rubs or gallops. Normal carotid pulses. Palpable femoral pulses. No peripheral edema or varicosities. RESPIRATORY: No respiratory distress. Clear to auscultation bilaterally. ABDOMEN: Soft, tender to palpation due to recent surgery. Surgical dressing is in place. Could not palpate for hepatosplenomegaly due to tenderness. NEURO AND PSYCHIATRIC: Alert and oriented to person, place and time. Normal affect. MEDICATIONS: Metoprolol succinate 25 mg b.i.d., furosemide 40 mg b.i.d., losartan 80 mg daily, metoprolol 2.5 mg IV q.6 h. p.r.n. for high blood pressure, atorvastatin 40 mg at bedtime, hydralazine 10 mg IV q.4 h. p.r.n. for high blood pressure. LABORATORY DATA: Reviewed. IMAGING: Imaging data reviewed. TELEMETRY: Telemetry data reviewed. Normal sinus rhythm without significant arrhythmias. ASSESSMENT 1. Abdominal hernia. 2. Coronary artery disease status post coronary artery bypass graft surgery. 3. History of congestive heart failure with recent normal ejection fraction on echo in the office. 4. Hypertension. 5. Hyperlipidemia. 6. Urinary tract infection. 7. Chronic kidney disease. 8. Gastrointestinal bleeding with melena. PLAN: From a cardiovascular standpoint, the patient has made through surgery without any significant events. She remains hypertensive likely due to pain. Continue the regimen as stated above. Blood pressure should improve with improved pain control. Job#: [id number]
--- NOTE | 2018-01-06 21:57 | Progress Note ---
DATE: January 06, 2018 CARDIOLOGY PROGRESS NOTE SUBJECTIVE: No major events overnight. Abdominal pain is improving. No chest pain or shortness of breath noted. REVIEW OF SYSTEMS: As above, otherwise negative. PHYSICAL EXAMINATION: VITAL SIGNS: Temperature 98.9, heart rate 69, respiratory rate 20, blood pressure 166/70, satting 99% on room air. GENERAL: Well-developed, well-nourished obese female. CARDIOVASCULAR: PMI nondisplaced, regular. S1, S2. No murmurs, rubs, or gallops. Normal carotid pulses. Palpable femoral pulses. Palpable pedal pulses. No peripheral edema or varicosities. RESPIRATORY: No respiratory distress. Clear to auscultation bilaterally. ABDOMEN: Soft. Tender at the surgical site. No masses. NEURO AND PSYCH: Alert and oriented to person, place, and time. Normal affect. MEDICATIONS: Cardiovascular medications reviewed. 1. Metoprolol succinate 25 mg b.i.d. 2. Valsartan 80 mg daily. 3. Atorvastatin 40 mg at bedtime. 4. Metoprolol tartrate 2.5 mg q.6h. p.r.n. IV for elevated blood pressure. 5. Hydralazine 10 mg q.4h. p.r.n. for high blood pressure. LABORATORY DATA: Reviewed. No significant changes. Hemoglobin stable around 10. TELEMETRY: Telemetry data reviewed, normal sinus rhythm, no significant arrhythmias. ASSESSMENT: 1. Abdominal hernia. 2. Coronary artery disease, status post coronary artery bypass surgery in the past. 3. Chronic diastolic congestive heart failure. 4. Hypertension. 5. Hyperlipidemia. 6. Urinary tract infection. 7. Chronic kidney disease. 8. History of gastrointestinal bleeding with melena. PLAN: Patient continues to do well from cardiovascular standpoint. Blood pressure has improved with her improving pain. Continue the above list of cardiac medications. Recommend restarting aspirin 81 mg daily when acceptable from surgical point of view. Thank you for this consultation. Will continue to follow closely. Job#: [id number]
[2018-01-06] MEDS: ATORVASTATIN 40 MG TAB PO SCH (22:42)
[2018-01-07] VITALS (7 sets, daily range): BP systolic 121–192; BP diastolic 50–76
[2018-01-07] MEDS: HYDROMORPHONE 1MG/1ML INJ IV PRN ×3 (02:40→16:39)
[2018-01-07 05:52] LABS: BASOPHILS % 0.5 % (0.0-1.0); EOSINOPHILS # (AUTO) 0.2 (0.0-0.4); EOSINOPHILS % 1.9 % (0.0-6.0); HEMOGLOBIN 10.3 g/dL (12.0-16.0); LYMPHOCYTES % 22.7 % (18.0-39.1); MEAN CORPUSCULAR HEMOGLOBIN 30.9 pg (28-32); MEAN CORPUSCULAR HGB CONC 34.3 g/dL (31-35); MEAN CORPUSCULAR VOLUME 90.1 fL (81-99); MONOCYTES # (AUTO) 0.7 (0.2-0.8); MONOCYTES % 7.4 % (4.4-11.3); NEUTROPHILS # (AUTO) 5.9 (2.1-6.9); NEUTROPHILS % 67.2 % (38.7-80.0); PLATELET COUNT 193 x10e3/uL (140-360); RED BLOOD COUNT 3.33 x10e6/uL (3.6-5.1); RED CELL DISTRIBUTION WIDTH 12.4 % (11.7-14.4)
[2018-01-07 06:26] LABS: ANION GAP 14.9 mmol/L (8-16); BLOOD UREA NITROGEN 14 mg/dL (7-26); BUN/CREATININE RATIO 15 (6-25); CALCIUM 9.2 mg/dL (8.4-10.2); CARBON DIOXIDE 28 mmol/L (22-29); CHLORIDE 99 mmol/L (98-107); CREATININE, SERUM 0.93 mg/dL (0.57-1.11); EST GLOMERULAR FILTRATION RATE > 60 ML/MIN (60-); GLUCOSE 142 mg/dL (74-118); SODIUM 139 mmol/L (136-145)
[2018-01-07 06:28] LABS: POTASSIUM 2.9 mmol/L (3.5-5.1)
[2018-01-07] MEDS ORDERED: POTASSIUM CHLORIDE 20 MEQ TAB CR PO STA ×2 (06:42→11:01)
[2018-01-07] MEDS: SODIUM CHLORIDE 0.9% 1000ML 1,000 ML IV SCH ×3 (06:53→22:53)
[2018-01-07] MEDS: INSULIN REGULAR, HUMAN 100 UNIT/1 ML 3ML VIAL SQ SCH ×4 (07:30→21:04)
[2018-01-07] MEDS: SUCRALFATE 1 GM TAB PO SCH ×4 (07:30→17:13)
[2018-01-07] MEDS: PANTOPRAZOLE 40 MG 10ML VIAL IV SCH ×2 (09:00→17:00)
[2018-01-07] MEDS: METOPROLOL SUCCINATE 25 MG TAB XL PO SCH ×2 (09:00→17:00)
[2018-01-07] MEDS: TAMSULOSIN HCL 0.4 MG CAP PO SCH (09:00)
[2018-01-07] MEDS: VALSARTAN 80 MG TAB PO SCH (09:00)
[2018-01-07] MEDS: FUROSEMIDE 40 MG TAB PO SCH ×2 (09:00→17:00)
[2018-01-07] MEDS: FOLIC ACID 1 MG TAB PO SCH (09:00)
[2018-01-07] MEDS: DULOXETINE HCL 30 MG DELAYED RELEASE PO SCH (09:00)
[2018-01-07] MEDS: GABAPENTIN 100 MG CAP PO SCH (09:00)
[2018-01-07] MEDS ORDERED: DIPHENOXYLATE/ATROPINE TAB PO PRN (10:00)
[2018-01-07] MEDS ORDERED: POTASSIUM CHLORIDE 20 MEQ TAB CR PO SCH (11:15)
--- NOTE | 2018-01-07 19:58 | Progress Note ---
DATE: January 07, 2018 CARDIOLOGY PROGRESS NOTE SUBJECTIVE: No major events overnight. The patient is feeling a little better today. Was going to be discharged today, however, developed some watery stools. Was given loperamide with some improvement, but did not feel like she was ready to go home yet. REVIEW OF SYSTEMS: Ten-point review of systems is otherwise negative. OBJECTIVE: VITAL SIGNS: Temperature 98.9, pulse 70, respiratory rate 18, blood pressure 153/70, oxygen saturation 100% on room air. GENERAL: Obese female, well-developed, well-nourished. CARDIOVASCULAR: Nondisplaced PMI. Normal S1 and S2. No murmurs, rubs or gallops. Palpable carotid pulses. Palpable pedal pulses. No significant edema or varicosities. ABDOMEN: Soft. Mildly tender at the surgical site. Nondistended. Normal bowel sounds. LUNGS: Clear to auscultation bilaterally. NEURO AND PSYCH: The patient is alert and oriented to person, place and time. Normal affect. MEDICATIONS: 1. Metoprolol succinate 25 mg b.i.d. 2. Furosemide 40 mg p.o. b.i.d. 3. Valsartan 80 mg p.o. daily. 4. Atorvastatin 40 mg nightly. LABORATORY DATA: Reviewed. No significant changes. IMAGING: No new imaging data review. TELEMETRY: Telemetry data reviewed. Telemetry was discontinued today. ASSESSMENT: 1. Abdominal hernia. 2. Coronary artery disease, status post coronary artery bypass graft surgery in the past. 3. History of congestive heart failure. 4. Hypertension. 5. Hyperlipidemia. 6. Urinary tract infection. 7. Chronic renal insufficiency. 8. Gastrointestinal bleeding with melena. PLAN: From a cardiac standpoint, the patient is okay to be discharged home. The patient is instructed to resume her aspirin 81 mg daily when she returns home. She will call the clinic to make a followup appointment with Dr. Contreras in the next 2 to 4 weeks. Job#: [id number]
[2018-01-07] MEDS: ATORVASTATIN 40 MG TAB PO SCH (21:04)
[2018-01-07] MEDS: INSULIN DETEMIR 100 UNIT/ML PEN SQ SCH (21:04)
[2018-01-07] MEDS: TRAMADOL/APAP 37.5MG-325MG TAB PO PRN (21:05)
[2018-01-08] VITALS: BP 107/51
[2018-01-08] MEDS: TRAMADOL/APAP 37.5MG-325MG TAB PO PRN (02:40)
[2018-01-08 04:00] VITALS: BP 139/63
[2018-01-08 06:06] LABS: ANION GAP 14.2 mmol/L (8-16); CALCIUM 8.9 mg/dL (8.4-10.2); CREATININE, SERUM 1.15 mg/dL (0.57-1.11); POTASSIUM 3.2 mmol/L (3.5-5.1)
[2018-01-08] MEDS: SODIUM CHLORIDE 0.9% 1000ML 1,000 ML IV SCH (06:53)
[2018-01-08] MEDS ORDERED: POTASSIUM CHLORIDE 20 MEQ TAB CR PO STA (07:03)
[2018-01-08] MEDS: INSULIN REGULAR, HUMAN 100 UNIT/1 ML 3ML VIAL SQ SCH (07:30)
[2018-01-08] MEDS: DULOXETINE HCL 30 MG DELAYED RELEASE PO SCH (08:30)
[2018-01-08] MEDS: TAMSULOSIN HCL 0.4 MG CAP PO SCH (08:30)
[2018-01-08] MEDS: PANTOPRAZOLE 40 MG 10ML VIAL IV SCH (08:30)
[2018-01-08] MEDS: GABAPENTIN 100 MG CAP PO SCH (08:30)
[2018-01-08] MEDS: FOLIC ACID 1 MG TAB PO SCH (08:30)
[2018-01-08] MEDS: SUCRALFATE 1 GM TAB PO SCH (08:30)
[2018-01-08] MEDS: FUROSEMIDE 40 MG TAB PO SCH (08:30)
[2018-01-08] MEDS: METOPROLOL SUCCINATE 25 MG TAB XL PO SCH (08:30)
[2018-01-08] MEDS: VALSARTAN 80 MG TAB PO SCH (08:30)
[2018-01-08 08:47] VITALS: BP 132/62
[2018-01-08] MEDS ORDERED: LOMOTIL TABLET1 EACH PO (11:08)
[2018-01-08] MEDS ORDERED: CARAFATE1 GM PO (11:09)
[2018-01-08] MEDS ORDERED: PANTOPRAZOLE SO40 MG PO (11:10)
[2018-01-08] MEDS ORDERED: POTASSIUM CHLO20 ME1 PO (11:12)
[2018-01-08] MEDS ORDERED: TYLENOL WITH C1 EACH PO (11:13)
== END 2018-01-08 11:43 | disposition home or self-care (01) | DRG 353 ==
LOC: ER 17:13 → ERHOLD 23:41 → MED/SURG 12-30 00:34
PROVIDERS: ADMIT Family Medicine; ATTEND Family Medicine
PROC: 0DB68ZX Excision of Stomach, Via Natural or Artificial Opening Endoscopic, Diagnostic (ICD-10-PCS; 2018-01-05)
PROC: 0DB78ZX Excision of Stomach, Pylorus, Via Natural or Artificial Opening Endoscopic, Diagnostic (ICD-10-PCS; 2018-01-05)
PROC: 0WQF0ZZ Repair Abdominal Wall, Open Approach (ICD-10-PCS; principal; 2018-01-05 11:49)
DX: K43.9 Ventral hernia without obstruction or gangrene (principal); K25.0 Acute gastric ulcer with hemorrhage; N39.0 Urinary tract infection, site not specified; I13.0 Hypertensive heart and chronic kidney disease with heart failure and stage 1 through stage 4 chronic kidney disease, or unspecified chronic kidney disease; I50.32 Chronic diastolic (congestive) heart failure; D62 Acute posthemorrhagic anemia; E78.5 Hyperlipidemia, unspecified; F41.9 Anxiety disorder, unspecified; F43.0 Acute stress reaction; F32.9 Major depressive disorder, single episode, unspecified; I25.10 Atherosclerotic heart disease of native coronary artery without angina pectoris; Z95.1 Presence of aortocoronary bypass graft; Z88.1 Allergy status to other antibiotic agents; Z88.2 Allergy status to sulfonamides; Z90.49 Acquired absence of other specified parts of digestive tract; K44.9 Diaphragmatic hernia without obstruction or gangrene; E83.52 Hypercalcemia; R19.7 Diarrhea, unspecified; N18.9 Chronic kidney disease, unspecified; E11.22 Type 2 diabetes mellitus with diabetic chronic kidney disease; Z79.4 Long term (current) use of insulin; G89.29 Other chronic pain
CPT/HCPCS: 36415; 43239; 74176; 80048; 80053; 81001; 82270; 82550; 82553; 82948; 83540; 84466; 84484; 85014; 85018; 85025; 85610; 85730; 87086; 87493; 88305; 88312; 96367; 99284; J1100; J1170; J1200; J2001; J2250; J2270; J2405; J2543; J7030

== ENCOUNTER 2018-05-22 21:55 | Emergency (ER) | payer OTHER, MEDICARE ==
[~2018-05-22] VITALS: Ht 149.9 cm; Wt 66.7 kg
[~2018-05-22 21:55] MED LIST changes: +ALPRAZOLAM0.5 M1 PO; +CARAFATE1 GM PO; +FERROUS SULFAT325 MG PO; +FOLIC ACID1 MG PO; +FUROSEMIDE40 MG PO; +HUMALOG100 UNIT/1 SC; +LOMOTIL TABLET1 EACH PO; +POTASSIUM CHLO20 ME1 PO; +RANITIDINE HCL150 M1 PO; +TAMSULOSIN HCL0.4 MG PO; +TIZANIDINE HCL4 M1 PO; +TYLENOL WITH C1 EACH PO
--- OUTSIDE RECORDS SUMMARY | 2018-05-22 22:03 | XMS REPORT | Clinical Summary ---
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 Active valsartan (DIOVAN) 80 MG Take 80 mg by 0 tablet mouth daily. Active aspirin 81 MG chewable Take 81 mg by 0 tablet mouth daily. Active insulin glargine (LANTUS) Inject 20 0 100 unit/mL injection Units subcutaneousl y nightly Use as directed . Active ranitidine (ZANTAC) 150 Take 150 mg 0 MG tablet by mouth 2 (two) times daily. Active ALPRAZolam (XANAX) 0.5 MG Take 0.5 mg 0 tablet by mouth as needed for Anxiety. Active nitroglycerin (NITROSTAT) Place 0.4 mg 0 0.4 MG SL tablet under the tongue every 5 (five) minutes as needed for Chest pain Put 1 pill under tongue every 5min as needed for chest pain.No more than 3 doses in 15min.Call 911 if pain is unrelieved 5min after 1st dose . Active pantoprazole (PROTONIX) Take 1 tablet 30 tablet 11 05/19/201 40 MG tablet (40 mg total) 7 by mouth daily. Active cyclobenzaprine Take 5 mg by 0 (FLEXERIL) 5 MG tablet mouth 3 (three) times daily as needed for Muscle spasms. Active ferrous sulfate 325 (65 Take 325 mg 0 FE) MG tablet by mouth daily with breakfast. Active dicyclomine (BENTYL) 20 Take 20 mg by 0 mg tablet mouth every 6 (six) hours. Active insulin lispro (HUMALOG) Inject 12 0 100 unit/mL injection Units subcutaneousl y 3 (three) times daily before meals. Active folic acid (FOLVITE) 1 MG Take 1 mg by 0 tablet mouth daily. Active DULoxetine (CYMBALTA) 30 Take 30 mg by 0 MG capsule mouth. Active furosemide (LASIX) 20 MG Take 20 mg by 0 tablet mouth. Active traMADol (ULTRAM) 50 mg Take 50 mg by 0 tablet mouth. 7 Active Problems Problem Noted Date Ileostomy, has currently 03/03/2017 H/O ileostomy 03/01/[address] 02/28/2017 Hyponatremia 11/18/2016 Abdominal pain 11/18/2016 Fever s/p colectomy [PMH arthritis, anxiety, CAD, DM, [place], hypertension, 11/18/2016 diverticulitis s/p ex-lap (11/06), endoscopic vein harvest (11/06), coronary bypass (11/06), cholecystectomy, hysterectomy] Acute pulmonary edema 11/01/2016 Septic shock (HCC) [S/p emergent ex lap (10/29). Perforated viscus vs bowel 10/30/2016 ischemia. PMH: CAD (s/p CABG 10/21), NSTEMI (08/2016), DM, HTN]. 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 10/30/2016 pectoris, unspecified vessel or lesion type Hypotension 10/30/2016 Acute blood loss anemia 10/30/2016 Metabolic acidosis 10/30/2016 Diabetes mellitus 10/22/2016 Essential hypertension 10/22/2016 Coronary artery disease 10/21/2016 Social History Date Tobacco Use Types Packs/Day Years Used Former Smoker 0.5 Smokeless Tobacco: Never Used Comments: stopped 08/27/2016 Alcohol Use Drinks/Week oz/Week Comments No Sex Assigned at Date Recorded Not on file Industry Job Start Date Occupation Not on file Not on file Not on file Travel End Travel History Travel Start No recent travel history available. Last Filed Vital Signs Not on file Plan of Treatment Health Maintenance Due Date Last Done Comments INFLUENZA VACCINE 03/23/2018 Implants Device Identifier Shelf Expiration Date Model / Serial / Lot Implanted Type Area Manufactur er 09/20/2018 4301-02 / / [id number] Memb Seprafilm Adhen Kim 5x6 Cement/Pernell N/A: Abdomen GENZYME 4301-02 - [id number] ler/Adhesi DAVIS: Implanted: Qty: 1 on 10/30/2016 by ve BIO-SURG Kelvin Cotton MD Results Not on fileafter 05/21/2017 Insurance Payer Benefit Subscriber ID Type Phone Address Plan / Group MEDICARE MEDICARE A xxxxxxxxxx Medicare B CIGNA - MGD CARE CIGNA xxxxxxxxxxx HMO/POS HMO/POS/OP EN ACCESS Advance Directives For more information, please contact: [facility] [address] [place] [address] Date Inactivated Comments Code Status Date Activated 03/03/2017 5:47 PM Full Code 02/28/2017 6:47 AM This code status was determined by: Patient 11/11/2016 5:11 PM Full Code 10/21/2016 3:26 PM This code status was determined by: Patient 10/21/2016 3:26 PM Full Code 10/21/2016 5:54 AM This code status was determined by: Patient
--- OUTSIDE RECORDS SUMMARY | 2018-05-22 22:03 | XMS REPORT | Continuity of Care Document ---
Author Author [facility] Interface Address Unknown Phone Unavailable Problems Problem Status Onset Date Classification Date Reported Comments Source DX: MASS Active 08/14/2016 [facility] DX: [id number] LUMP IN BREAST Active 08/08/2016 [facility] DX: [id number] LUMP IN BREAST Active 08/08/2016 [facility] M54.5 - LOW BACK PAIN Active 12/04/2015 [facility] Discharge Diagnosis: Fall 11/27/2015 11/30/2015 [facility] Discharge Diagnosis: Leg pain, bilateral 11/27/2015 11/30/2015 [facility] FALL 3 DAYS GO Active 11/27/2015 [facility] FALL/ KNEE INJURY Active 05/15/2012 [facility] Cellulitis Active Problem 10/05/2012 [facility] Diabetes mellitus Active Problem 10/05/2012 [facility] Hypertension Active Problem 10/05/2012 [facility] Hyponatremia Active Problem 10/05/2012 [facility] Pain Active Problem 10/05/2012 [facility] Diabetes mellitus Active Problem 08/19/2016 [facility] Hypertension Active Problem 08/19/2016 [facility] Hyponatremia Active Problem 08/19/2016 [facility] Pain Active Problem 08/19/2016 [facility] Cellulitis Active Problem 11/30/2015 [facility] Diabetes mellitus Active Problem 11/30/2015 [facility] Hypertension Active Problem 11/30/2015 [facility] Hyponatremia Active Problem 11/30/2015 [facility] Pain Active Problem 11/30/2015 [facility] PAIN Active [facility] RT KNEE 836.0, 715.6 Active [facility] BACK PAIN Active [facility] UNSPECIFIED LUMP IN BREAST Active [facility] Medications Medication Details Route Status Patient Instructions Ordering Provider Order Date Source Cyclobenzaprine hydrochloride 10 MG Oral Tablet [Flexeril] 10 mg=1 tab, PO, TID, PRN for spasm, X 5 day, # 15 tab, 0 Refill(s) Active 11/28/2015 [facility] tramadol hydrochloride 50 MG Oral Tablet 50 mg=1 tab, PO, TID, PRN Pain, X 5 day, # 15 tab, 0 Refill(s) Active 11/28/2015 [facility] Sodium Chloride 0.9% IV 25 mL, Route: IV, Start date: 11/27/15 22:54:00 CDT, Duration: 30 day, Stop date: 12/27/15 22:53:00 CDT, PRN Line Flush No Longer Active 11/28/2015 [facility] BD Normal Saline Flush 10 mL, Route: IV, Drug Form: INJ, PRN, PRN Line Flush, Start date: 11/27/15 22:54:00 CDT, Duration: 30 day, Stop date: 12/27/15 22:53:00 CDTNotes: (Same as: BD Posiflush) No Longer Active 11/28/2015 [facility] Acetaminophen 325 MG / Hydrocodone Bitartrate 5 MG Oral Tablet [Corydon 5/325] 1 tab, Route: PO, Drug Form: TAB, Dosing Weight 65.909, kg, ONCE, STAT, Start date: 11/27/15 22:45:00 CDT, Stop date: 11/27/15 22:45:00 CDT Inactive 11/28/2015 [facility] Corydon 7.5/325 oral tablet 1-2 TAB, PO, Q6H, PRN, 20 tab, for pain, Substitution Allowed, Maintenance, TAB PO Active 05/16/2012 [facility] acetaminophen-hydrocodone 325 mg-5 mg oral tablet 2 tab, Route: PO, Dosing Weight 68.182, kg, ONCE, STAT, Start date: 05/15/12 22:47:00, Stop date: 05/15/12 22:47:00 PO No Longer Active 05/16/2012 [facility] pneumococcal 23-valent vaccine 0.5 ml, Route: IM, Drug Form: INJ, ONCALL, Start date: 05/22/10 23:55:23, Stop date: 06/21/10 23:50:23 IM No Longer Active SYSTEM 05/23/2010 [facility] Allergies, Adverse Reactions, Alerts Substance Category Reaction Severity Reaction type Status Date Reported Comments Source NKFA Assertion Propensity to adverse reactions to food Active [facility] sulfa drugs Assertion Drug allergy Active [facility] Rocephin Assertion Drug allergy Active [facility] Immunizations Immunization Date Given Site Status Last Updated Comments Source pneumococcal 23-valent vaccine 05/27/2010 completed [facility] pneumococcal 23-valent vaccine 05/27/2010 Left deltoid completed [facility] pneumococcal 23-valent vaccine 05/27/2010 Left deltoid completed [facility] Results Order Name Results Value Reference Range Date Interpretation Comments Source Breast BX Uni w Clip Primary Side US Breast BX Uni w Clip Primary Side US - BREAST BX UNI W CLIP PRIMARY SIDE US/R ULTRASOUND GUIDED BIOPSY RIGHT BREAST WITH MARKING DEVICE INSERTED AND POST DIGITAL MAMMOGRAPHIC AND ULTRASOUND IMAGIN08/16/2016 CLINICAL: Right breast retroareolar Mass. PATIENT CONSENT: Oral and written informed consent was obtained. Risks, benefits, and alternatives were discussed with the patient. Risks include but are not limited to pain, infection, bleeding, incomplete procedure, repeat procedure, pneumothorax, damage to surrounding tissues, and allergic reaction. The patient understands the plan and wishes to proceed. A time out was performed immediately prior to the procedure to confirm the patient's identity (name/date of ) and correct procedure site. Correlation is made to exams dated: 08/23/2009 mammogram - [facility], 08/14/2016 mammogram and 08/14/2016 ultrasound - [facility]. An ultrasound guided biopsy using real-time ultrasound was performed for the concerning palpable 2.5 cm wider than tall indistinct oval solid mass located in the right breast central to the nipple anterior depth. This was described on the previous mammography and ultrasound reports. The skin was prepped in the usual manner. 8 ccs of 1% lidocaine was administered during the procedure. A skin mallory was made in the breast. The abnormality was approached from the lateral aspect. A 14 gauge biopsy needle was placed adjacent to the abnormality through an introducer device under ultrasound guidance. Once the needle was documented to be in the correct location, three cores were obtained using an Achieve automated firing device. A Gel Jay UltraCor braided R/ribbon shaped clip was inserted into the biopsy cavity. A skin adhesive and a sterile dressing were applied to the access site. Post procedure digital mammographic and ultrasound imaging demonstrates the clip at the targeted area and partial removal of the abnormality. The specimens were sent to the laboratory for pathological analysis. IMPRESSION: ULTRASOUND GUIDED BIOPSY BENIGN Ultrasound guided biopsy of the 2.5 cm wider than tall solid mass in the right breast central to the nipple anterior depth was successful with no apparent post procedure complications. Pathology indicates benign results - "Fibrosclerotic breast tissues, negative for tumor; Trichrome stain is positive for fibrous tissue; Congo red stain is negative for amyloid". Pathology results are concordant with imaging findings. A follow-up right diagnostic mammogram and possible ultrasound in 6 months is recommended to demonstrate stability. Sarah Denson M.D. jt/:09/02/2016 08:08:46 Gill Box Fixer: Melvin Francois, [facility] This exam was dictated and interpreted by [id number] for [facility]. letter sent: Post Bx Results 08/16/2016 - - Read by: Sarah Denson MD Dictated Date/time: 09/02/16 08:08 Electronically Signed by: Sarah Denson MD 09/02/16 08:08 FINAL REPORT [facility] Breast Mammo Diag UNI incl CAD MA Breast Mammo Diag UNI incl CAD MA - BREAST MAMMO DIAG UNI INCL CAD MA/R UNILATERAL RIGHT DIGITAL DIAGNOSTIC MAMMOGRAM WITH CAD POST-PROCEDURE IMAGING FOR MARKER PLACEMENT: 08/16/2016 CLINICAL: Post biopsy clip confirmation mammogram. Current study was evaluated with a Computer Aided Detection (CAD) system. Comparison is made to exams dated: 08/14/2016 mammogram - [facility], 08/23/2009 mammogram - [facility], 08/16/2016 ultrasound biopsy and 08/14/2016 ultrasound - [facility]. The tissue of the right breast is almost entirely fat. Post procedure digital mammogram demonstrates the biopsy clip in appropriate position. Biopsied lesion is again noted. No other significant interval change. There are benign calcifications in the right breast. IMPRESSION: POST PROCEDURE MAMMOGRAM FOR MARKER PLACEMENT Biopsy clip is in appropriate position. Please see biopsy report for further details. Follow up with ACR/SBI guidelines. Sarah linder/penrad:08/16/2016 11:49:04 Gill Box Fixer: Sharmila Longoria, [facility] This exam was dictated and interpreted by [id number] for [facility]. Mammogram BI-RADS: Post-procedure mammogram for marker placement 08/16/2016 - - Read by: Sarah Denson MD Dictated Date/time: 08/16/16 11:49 Electronically Signed by: Sarah Denson MD 08/16/16 11:49 FINAL REPORT [facility] Breast Complete Uni US Breast Complete Uni US - BREAST COMPLETE UNI US/R ULTRASOUND OF RIGHT BREAST AND RIGHT AXILLA: 08/14/2016 CLINICAL: Right breast Lump. Comparison is made to exams dated: 08/14/2016 mammogram - [facility] and 08/23/2009 mammogram - [facility]. Color flow and real-time ultrasound of the right breast and axilla were performed. Henry scale images of the real-time examination were reviewed. All 4 quadrants, the retroareolar region and axilla are evaluated in this exam. There is a 2.5 cm wider than tall oval mass with an indistinct margin in the right breast central to the nipple anterior depth. This oval mass is hypoechoic with posterior acoustic shadowing. This correlates as palpated, to the reported pain, with mammography findings, possibly with nipple discharge, and area of clinical concern. No abnormalities were seen sonographically in the right axilla. IMPRESSION: SUSPICIOUS OF MALIGNANCY - FOLLOW-UP RECOMMENDED The 2.5 cm wider than tall oval mass in the right breast is at an intermediate suspicion for malignancy. An ultrasound guided biopsy is recommended. A phone call was made to the physician's office and the results were reviewed with the patient. SUMMARY: The patient scheduled her procedure for 08/16/15 prior to leaving the [facility]. Critical findings were called to the physician's nurse at 1429 hours on the day of the exam. An order for this procedure will need to be provided by the referring physician. Sarah linder/:08/14/2016 14:31:29 Gill Box Fixer: Melvin Francois, [facility] This exam was dictated and interpreted by [id number] for [facility]. letter sent: Biopsy Ultrasound BI-RADS: 4b Suspicious abnormality - intermediate suspicion of malignancy 08/14/2016 - - Read by: Sarah Denson MD Dictated Date/time: 08/14/16 14:31 Electronically Signed by: Sarah Denson MD 08/14/16 14:31 FINAL REPORT [facility] Breast Mammo Diag IVAN incl CAD MA Breast Mammo Diag IVAN incl CAD MA - BREAST MAMMO DIAG IVAN INCL CAD MA BILATERAL DIGITAL DIAGNOSTIC MAMMOGRAM WITH CAD: 08/14/2016 CLINICAL: Right breast lump and pain. Current study was evaluated with a Computer Aided Detection (CAD) system. Comparison is made to exam dated: 08/23/2009 mammogram - [facility]. The tissue of both breasts is almost entirely fat. There are benign calcifications in both breasts. There is a focal asymmetry in the right breast central to the nipple in the retroareolar region. This is more prominent and correlates as palpated and to the area of reported pain and possibly to reported nonbloody discharge. No other significant masses, calcifications, or other findings are seen in either breast. IMPRESSION: INCOMPLETE: NEEDS ADDITIONAL IMAGING EVALUATION The focal asymmetry in the right breast is indeterminate. An ultrasound is recommended. The results were reviewed with the patient. SUMMARY: Ultrasound will be performed at this time; please see dedicated separate report. Sarah Denson M.D. jt/:08/14/2016 14:28:38 Gill Box Fixer: Cynthia Castano, [facility] This exam was dictated and interpreted by [id number] for [facility]. Mammogram BI-RADS: 0 Indeterminate 08/14/2016 - - Read by: Sarah Denson MD Dictated Date/time: 08/14/16 14:28 Electronically Signed by: Sarah Denson MD 08/14/16 14:28 FINAL REPORT [facility] Ext Lower Venous Doppler Bilat US Ext Lower Venous Doppler Bilat US PROCEDURE: BILATERAL LOWER EXTREMITY VENOUS ULTRASOUND INDICATION: Bilateral leg pain for 3 days getting worse. COMPARISON: None. TECHNIQUE: Sonographic evaluation of the bilateral lower extremity veins was performed using high resolution B-mode, pulse and color Doppler imaging. FINDINGS: RIGHT: The common femoral, femoral, popliteal and visualized calf veins are patent. Normal venous waveforms. LEFT: The common femoral, femoral, popliteal and visualized calf veins are patent. Normal venous waveforms. IMPRESSION: No deep venous thrombosis. SL: WR1-M 11/27/2015 - - Read by: Javon Smallwood MD Dictated Date/time: 11/27/15 23:04 Electronically Signed by: Javon Smallwood MD 11/27/15 23:05 FINAL REPORT [facility] Vital Signs Vital Sign Value Date Comments Source Respitory Rate 16 11/28/2015 [facility] Systolic (mm Hg) 161 11/28/2015 [facility] Diastolic (mm Hg) 87 11/28/2015 [facility] Heart Rate 85 11/28/2015 [facility] Weight 65.909 11/28/2015 [facility] Systolic (mm Hg) 156 11/28/2015 [facility] Diastolic (mm Hg) 83 11/28/2015 [facility] Heart Rate 82 11/28/2015 [facility] Respitory Rate 18 11/28/2015 [facility] Height 149.86 cm 11/28/2015 [facility] BMI Calculated 29.35 11/28/2015 [facility] Temperature Oral (F) 98.5 F 11/28/2015 [facility] Weight 68.182 05/16/2012 [facility] Encounters Location Location Details Encounter Type Encounter Number Reason For Visit Attending Provider ADM Date DC Date Status Source [facility] Emergency [id number] FALL/ KNEE INJURY LYNDSEY REYESSOTERO 05/15/2012 05/15/2012 Active [facility] [id number] RT KNEE 836.0, 715.6 OVIDIO WATERMAN 09/04/2012 Active [id number] Colin Almonte 09/20/2013 10/20/2013 [facility] [id number] Yumi Gay 11/28/2015 11/28/2015 [facility] Outpatient [id number] Lay Blood 08/14/2016 08/15/2016 [facility] Outpatient [id number] Lay Blood 08/16/2016 08/17/2016 [facility] Procedures Procedure Code Date Perfomer Comments Source
[2018-05-22 23:42] LABS: CLARITY,URINE CLOUDY (CLEAR); COLOR,URINE YELLOW (YELLOW); LEUKOCYTE ESTERASE ,URINE 2+ (NEGATIVE); NITRITE,URINE NEGATIVE (NEGATIVE); PROTEIN,URINE DIPSTICK NEGATIVE (NEGATIVE)
[2018-05-22 23:43] LABS: AMPHETAMINES SCREEN,URINE NEGATIVE (NEGATIVE); BENZODIAZEPINES SCREEN,URINE POSITIVE (NEGATIVE); KETONES,URINE NEGATIVE (NEGATIVE); PHENCYCLIDINE SCREEN,URINE NEGATIVE (NEGATIVE)
[2018-05-22 23:44] LABS: URINE UROBILINOGEN 0.2 mg/dL (0.2 - 1)
[2018-05-22 23:45] LABS: BILIRUBIN,URINE NEGATIVE (NEGATIVE)
[2018-05-22 23:50] LABS: BACTERIA,URINE MANY /HPF; EPITHELIAL CELLS,URINE FEW /LPF; RBC,URINE 21-50 /HPF (0-5); RENAL EPITHELIAL CELLS,URINE FEW; TRANSITIONAL EPI CELLS,URINE FEW; WBC,URINE (MAN) >50 /HPF (0-5)
--- NOTE | 2018-05-23 01:46 | Diagnostic Imaging Report ---
History: Fall, pain Comparison studies:None Technique: Axial images were obtained from the brain and cervical spine. Coronal and sagittal images reconstructed from the axial data. Intravenous contrast: None Dose modulation, iterative reconstruction, and/or weight based adjustment of the mA/kV was utilized to reduce the radiation dose to as low as reasonably achievable. Findings: Head CT: Scalp/skull: No abnormalities. No fractures, blastic or lytic lesions. Brain sulci: Appropriate for age. Ventricles: Normal in size and configuration. No hydrocephalus. Extra-axial spaces: No masses. No fluid collections. Parenchyma: No abnormal densities. No masses, hemorrhage, acute or chronic cortical vascular insults. Sellar/suprasellar region: No abnormalities. Craniocervical junction: Patent foramen magnum. No Chiari one malformation. Incidental findings: Atherosclerotic calcifications in the carotid siphons Cervical spine CT: Fractures: None. Soft tissues: No gross abnormalities. Atlantoaxial articulation: Intact. Alignment: Reversal of the normal lordosis. No scoliosis. Cervicomedullary junction: No abnormalities. Patent foramen magnum. Vertebrae: No infection or neoplasm. Degenerative changes: None. Incidental findings: None. Impression: Head CT: 1. No acute abnormality . . Cervical spine CT: 1. No abnormalities. 2. Cannot exclude ligament, spinal cord and or vascular abnormalities on the basis of this examination. Signed by: DR Gopi Lomas M.D. on 05/23/2018 1:43 AM
[2018-05-23] MEDS ORDERED: LEVOFLOXACIN 500 MG TAB ONE (01:53)
[2018-05-23 02:04] VITALS: BP 137/79
== END 2018-05-23 02:10 | disposition home or self-care (01) ==
LOC: ER 21:55
DX: S00.83XA Contusion of other part of head, initial encounter (principal); W18.39XA Other fall on same level, initial encounter; Y92.008 Other place in unspecified non-institutional (private) residence as the place of occurrence of the external cause; N30.91 Cystitis, unspecified with hematuria; F11.90 Opioid use, unspecified, uncomplicated; F13.90 Sedative, hypnotic, or anxiolytic use, unspecified, uncomplicated; I10 Essential (primary) hypertension; E11.9 Type 2 diabetes mellitus without complications; I25.10 Atherosclerotic heart disease of native coronary artery without angina pectoris; D64.9 Anemia, unspecified; Z98.0 Intestinal bypass and anastomosis status; F17.210 Nicotine dependence, cigarettes, uncomplicated
CPT/HCPCS: 70450; 72125; 80307; 81001; 99283

== ENCOUNTER 2018-10-23 11:29 | Inpatient (IN) | payer OTHER, MEDICARE ==
[~2018-10-23] VITALS: Ht 149.9 cm; Wt 78.0 kg
--- OUTSIDE RECORDS SUMMARY | 2018-10-23 11:33 | XMS REPORT | Clinical Summary ---
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 Phone AndrewLulu Henry PCP Allergies [...] s/p colectomy [PMH arthritis, anxiety, CAD, DM, [place], hypertension, 11/18/2016 diverticulitis s/p ex-lap (11/06), endoscopic [...] Signs Not on file Plan of Treatment Not on file Implants Device Identifier Shelf Expiration Date Model / Serial / Lot Implanted Type Area Manufactur er 09/20/2018 4301-02 / / [id number] Memb Seprafilm Adhen Kim 5x6 Cement/Pernell N/A: Abdomen GENZYME 4301-02 - [id number] ler/Adhesi DAVIS: Implanted: Qty: 1 on 10/30/2016 by ve BIO-SURG Kelvin Cotton MD Results Not on fileafter 10/22/2017 Insurance Payer Benefit Subscriber ID Type Phone Address Plan / Group MEDICARE MEDICARE A xxxxxxxxxx Medicare B CIGNA - MGD CARE CIGNA xxxxxxxxxxx HMO/POS HMO/POS/OP EN ACCESS Advance Directives For more information, please contact: [facility] [address] [place] [address] Date Inactivated Comments Code Status Date Activated 03/03/2017 5:47 PM Full Code 02/28/2017 6:47 AM This code status was determined by: Patient 11/11/2016 5:11 PM Full Code 10/21/2016 3:26 PM This code status was determined by: Patient 10/21/2016 3:26 PM Full Code 10/21/2016 5:54 AM This code status was determined by: Patient
--- OUTSIDE RECORDS SUMMARY | 2018-10-23 11:33 | XMS REPORT | Continuity of Care Document ---
Author Author [facility] Interface Address Unknown Phone Unavailable Problems Problem Status Onset Date Classification Date Reported Comments Source DX: MASS Active 08/14/2016 [facility] DX: [id number] LUMP IN BREAST Active 08/08/2016 [facility] DX: [id number] LUMP IN BREAST Active 08/08/2016 [facility] M54.5 - LOW BACK PAIN Active 12/04/2015 [facility] Discharge Diagnosis: Fall 11/27/2015 11/30/2015 [facility] Discharge Diagnosis: Leg pain, bilateral 11/27/2015 11/30/2015 [facility] FALL 3 DAYS GO Active 11/27/2015 [facility] FALL/ KNEE INJURY Active 05/15/2012 [facility] Cellulitis Active Problem 10/05/2012 [facility] Diabetes mellitus Active Problem 10/05/2012 [facility] Hypertension Active Problem 10/05/2012 [facility] Hyponatremia Active Problem 10/05/2012 [facility] Pain Active Problem 10/05/2012 [facility] Diabetes mellitus Active Problem 08/19/2016 [facility] Hypertension Active Problem 08/19/2016 [facility] Hyponatremia Active Problem 08/19/2016 [facility] Pain Active Problem 08/19/2016 [facility] Cellulitis Active Problem 11/30/2015 [facility] PAIN Active [facility] RT KNEE 836.0, 715.6 Active [facility] BACK PAIN Active [facility] UNSPECIFIED LUMP IN BREAST Active [facility] Medications Medication Details Route Status Patient Instructions Ordering Provider Order Date Source Cyclobenzaprine hydrochloride 10 MG Oral Tablet [Flexeril] 10 mg=1 tab, PO, TID, PRN for spasm, X 5 day, # 15 tab, 0 Refill(s) Active 11/28/2015 [facility] tramadol hydrochloride 50 MG Oral Tablet 50 mg=1 tab, PO, TID, PRN Pain, X 5 day, # 15 tab, 0 Refill(s) Active 11/28/2015 [facility] Sodium Chloride 0.9% IV 25 mL, Route: IV, Start date: 11/27/15 22:54:00 CDT, Duration: 30 day, Stop date: 12/27/15 22:53:00 CDT, PRN Line Flush No Longer Active 11/28/2015 [facility] BD Normal Saline Flush 10 mL, Route: IV, Drug Form: INJ, PRN, PRN Line Flush, Start date: 11/27/15 22:54:00 CDT, Duration: 30 day, Stop date: 12/27/15 22:53:00 CDTNotes: (Same as: BD Posiflush) No Longer Active 11/28/2015 [facility] Acetaminophen 325 MG / Hydrocodone Bitartrate 5 MG Oral Tablet [Kent 5/325] 1 tab, Route: PO, Drug Form: TAB, Dosing Weight 65.909, kg, ONCE, STAT, Start date: 11/27/15 22:45:00 CDT, Stop date: 11/27/15 22:45:00 CDT Inactive 11/28/2015 [facility] Kent 7.5/325 oral tablet 1-2 TAB, PO, Q6H, PRN, 20 tab, for pain, Substitution Allowed, Maintenance, TAB PO Active [place] 05/16/2012 [facility] acetaminophen-hydrocodone 325 mg-5 mg oral tablet 2 tab, Route: PO, Dosing Weight 68.182, kg, ONCE, STAT, Start date: 05/15/12 22:47:00, Stop date: 05/15/12 22:47:00 PO No Longer Active [place] 05/16/2012 [facility] pneumococcal 23-valent vaccine 0.5 ml, Route: IM, Drug Form: INJ, ONCALL, Start date: 05/22/10 23:55:23, Stop date: 06/21/10 23:50:23 IM No Longer Active SYSTEM 05/23/2010 [place],[facility] Allergies, Adverse Reactions, Alerts Substance Category Reaction Severity Reaction type Status Date Reported Comments Source NKFA Assertion Propensity to adverse reactions to food Active [facility] sulfa drugs Assertion Drug allergy Active [facility] Rocephin Assertion Drug allergy Active [facility] Immunizations Immunization Date Given Site Status Last Updated Comments Source pneumococcal 23-valent vaccine 05/27/2010 completed Ekundayo [facility] pneumococcal 23-valent vaccine 05/27/2010 Left deltoid completed Ekundayo [facility] Results Order Name Results Value Reference Range [...] made to exams dated: 08/23/2009 mammogram - [facility], 08/14/2016 mammogram and 08/14/2016 ultrasound - [facility]. An ultrasound guided biopsy using real-time ultrasound [...] months is recommended to demonstrate stability. Sarah maganat/:09/02/2016 08:08:46 Mortgage Counselor: Melvin Francois [facility] This exam was dictated and interpreted by [id number] for [facility]. letter sent: Post Bx Results 08/16/2016 - - Read by: Sarah Denson MD Dictated Date/time: 09/02/16 08:08 Electronically Signed by: Sarah Denson MD 09/02/16 08:08 FINAL REPORT [facility] Mammo Diag UNI incl CAD MA Breast Mammo Diag UNI incl CAD MA - BREAST MAMMO DIAG UNI INCL CAD MA/R UNILATERAL RIGHT DIGITAL DIAGNOSTIC MAMMOGRAM WITH CAD POST-PROCEDURE IMAGING FOR MARKER PLACEMENT: 08/16/2016 CLINICAL: Post biopsy clip confirmation mammogram. Current study was evaluated with a Computer Aided Detection (CAD) system. Comparison is made to exams dated: 08/14/2016 mammogram - [facility], 08/23/2009 mammogram - [facility], 08/16/2016 ultrasound biopsy and 08/14/2016 ultrasound - [facility]. The tissue of the right breast is [...] up with ACR/SBI guidelines. Sarah linder/penrad:08/16/2016 11:49:04 Mortgage Counselor: Sharmila Longoria [facility] This exam was dictated and interpreted by [id number] for [facility]. Mammogram BI-RADS: Post-procedure mammogram for marker placement 08/16/2016 - - Read by: Sarah Denson MD Dictated Date/time: 08/16/16 11:49 Electronically Signed by: Sarah Denson MD 08/16/16 11:49 FINAL REPORT [facility] Breast Complete Uni US Breast Complete Uni US - BREAST COMPLETE UNI US/R ULTRASOUND OF RIGHT BREAST AND RIGHT AXILLA: 08/14/2016 CLINICAL: Right breast Lump. Comparison is made to exams dated: 08/14/2016 mammogram - [facility] and 08/23/2009 mammogram - [facility]. Color flow and real-time ultrasound of [...] procedure for 08/16/15 prior to leaving the [facility]. Critical findings were called to the physician's nurse at 1429 hours on the day of the exam. An order for this procedure will need to be provided by the referring physician. Sarah linder/:08/14/2016 14:31:29 Mortgage Counselor: Melvin Francois, [facility] This exam was dictated and interpreted by [id number] for [facility]. letter sent: Biopsy Ultrasound BI-RADS: 4b Suspicious abnormality - intermediate suspicion of malignancy 08/14/2016 - - Read by: Sarah Denson MD Dictated Date/time: 08/14/16 14:31 Electronically Signed by: Sarah Denson MD 08/14/16 14:31 FINAL REPORT [facility] Mammo Diag IVAN incl CAD MA Breast Mammo Diag IVAN incl CAD MA - BREAST MAMMO DIAG IVAN INCL CAD MA BILATERAL DIGITAL DIAGNOSTIC MAMMOGRAM WITH CAD: 08/14/2016 CLINICAL: Right breast lump and pain. Current study was evaluated with a Computer Aided Detection (CAD) system. Comparison is made to exam dated: 08/23/2009 mammogram - [facility]. The tissue of both breasts is [...] separate report. Sarah Denson M.D. jt/:08/14/2016 14:28:38 Mortgage Counselor: Cynthia Castano, [facility] This exam was dictated and interpreted by [id number] for [facility]. Mammogram BI-RADS: 0 Indeterminate 08/14/2016 - - Read by: Sarah Denson MD Dictated Date/time: 08/14/16 14:28 Electronically Signed by: Sarah Denson MD 08/14/16 14:28 FINAL REPORT [facility] Ext Lower Venous Doppler Bilat US Ext [...] Javon Smallwood MD 11/27/15 23:05 FINAL REPORT [facility] Vital Signs Vital Sign Value Date Comments Source Respitory Rate 16 11/28/2015 [facility] Systolic (mm Hg) 161 11/28/2015 [facility] Diastolic (mm Hg) 87 11/28/2015 [facility] Heart Rate 85 11/28/2015 [facility] Weight 65.909 11/28/2015 [facility] Systolic (mm Hg) 156 11/28/2015 [facility] Diastolic (mm Hg) 83 11/28/2015 [facility] Heart Rate 82 11/28/2015 [facility] Respitory Rate 18 11/28/2015 [facility] Height 149.86 cm 11/28/2015 [facility] BMI Calculated 29.35 11/28/2015 [facility] Temperature Oral (F) 98.5 F 11/28/2015 [facility] Weight 68.182 05/16/2012 [facility] Encounters Location Location Details Encounter Type Encounter Number Reason For Visit Attending Provider ADM Date DC Date Status Source [facility] Emergency [id number] FALL/ KNEE INJURY LYNDSEY MELISSA 05/15/2012 05/15/2012 Active [facility] [id number] RT KNEE 836.0, 715.6 OVIDIO WATERMAN 09/04/2012 Active [facility] OP Therapy Patients [id number] Colin Almonte 09/20/2013 10/20/2013 [facility] [id number] Yumi Rashid 11/28/2015 11/28/2015 [facility] Outpatient [id number] Lay Blood 08/14/2016 08/15/2016 [facility] Out[facility] [id number] Lay Blood 08/16/2016 08/17/2016 [facility] Procedures Procedure Code Date Perfomer Comments Source
--- NOTE | 2018-10-23 12:04 | Diagnostic Imaging Report ---
History: Confusion, did not know name Comparison studies: CT head 05/23/2018 Technique: Axial images were obtained from the skull base to the vertex. Coronal and sagittal reconstructions obtained from the axial data. Dose modulation, iterative reconstruction, and/or weight based adjustment of the mA/kV was utilized to reduce the radiation dose to as low as reasonably achievable. Findings: Scalp/skull: No abnormalities. No fractures, blastic or lytic lesions. Extra-axial spaces: No masses. No fluid collections. Brain sulci: Appropriate for age. Ventricles: Normal in size and configuration. No hydrocephalus. Parenchyma: No abnormal densities. No masses, hemorrhage, acute or chronic cortical vascular insults. Sellar/suprasellar region: No abnormalities Craniocervical junction: Patent foramen magnum. No Chiari one malformation. Atherosclerotic calcifications of the carotid siphons and vertebral arteries. IMPRESSION: No acute abnormalities . Stable from previous examination. Signed by: DR Gopi Loams M.D. on 10/23/2018 12:01 PM
[2018-10-23] MEDS ORDERED: SODIUM CHLORIDE 0.9% 1000ML 1,000 ML IV STA (12:05)
[2018-10-23 12:21] LABS: BASOPHILS % 0.2 % (0.0-1.0); HEMATOCRIT 35.8 % (34.2-44.1); LYMPHOCYTES # (AUTO) 0.8 (1.0-3.2); LYMPHOCYTES % 7.2 % (18.0-39.1); MEAN CORPUSCULAR HGB CONC 35.2 g/dL (31-35); MEAN CORPUSCULAR VOLUME 88.2 fL (81-99); MONOCYTES # (AUTO) 0.5 (0.2-0.8); NEUTROPHILS # (AUTO) 9.1 (2.1-6.9); NEUTROPHILS % 87.1 % (38.7-80.0); PLATELET COUNT 310 x10e3/uL (140-360); RED BLOOD COUNT 4.06 x10e6/uL (3.6-5.1); RED CELL DISTRIBUTION WIDTH 12.5 % (11.7-14.4)
[2018-10-23 12:33] LABS: HEMOGLOBIN 12.6 g/dL (12.0-16.0)
[2018-10-23 12:35] LABS: INR 0.94; PROTHROMBIN TIME 13.1 seconds (11.9-14.5)
[2018-10-23 12:36] LABS: PARTIAL THROMBOPLASTIN TIME 32.6 seconds (23.8-35.5)
[2018-10-23 12:47] LABS: ANION GAP 14.1 mmol/L (8-16); CALCIUM 10.3 mg/dL (8.4-10.2); CREATININE, SERUM 1.45 mg/dL (0.57-1.11); MAGNESIUM 2.2 MG/DL (1.3-2.1); POTASSIUM 5.1 mmol/L (3.5-5.1)
--- NOTE | 2018-10-23 12:49 | Diagnostic Imaging Report ---
EXAMINATION: CHEST SINGLE (PORTABLE) INDICATION: Altered mental status. COMPARISON: Chest radiograph 08/27/2016. FINDINGS: TUBES and LINES: None. LUNGS: Lungs are moderately inflated. Mild patchy bibasilar opacities, likely atelectasis. There is no evidence of lobar pneumonia or pulmonary edema. PLEURA: No pleural effusion or pneumothorax. HEART AND MEDIASTINUM: The cardiomediastinal silhouette is unremarkable. BONES AND SOFT TISSUES: No acute osseous amount he. Status post median sternotomy. UPPER ABDOMEN: No free air under the diaphragm. IMPRESSION: No acute radiographic abnormality. Mild patchy bibasilar opacities, likely atelectasis. No evidence of lobar pneumonia. Signed by: Dr. Kierra Barnard MD on 10/23/2018 12:46 PM
[2018-10-23 12:54] LABS: B-TYPE NATRIURETIC PEPTIDE2 130.2 pg/mL (0-100)
[2018-10-23 13:06] LABS: CREATINE KINASE MB 8.4 ng/mL (0-5.0); THYROID STIMULATING HORMONE 0.772 uIU/mL (0.350-4.940)
[2018-10-23] MEDS ORDERED: HYDRALAZINE HCL 20 MG/ML VIAL IV ONE (14:11)
[2018-10-23] MEDS ORDERED: HYDRALAZINE HCL 20 MG/ML VIAL ONE (14:18)
[2018-10-23 14:29] LABS: CLARITY,URINE CLOUDY (CLEAR); COLOR,URINE STRAW (YELLOW)
[2018-10-23 14:30] LABS: BILIRUBIN,URINE NEGATIVE (NEGATIVE); KETONES,URINE NEGATIVE (NEGATIVE); LEUKOCYTE ESTERASE ,URINE TRACE (NEGATIVE); NITRITE,URINE NEGATIVE (NEGATIVE); PROTEIN,URINE DIPSTICK TRACE (NEGATIVE); URINE UROBILINOGEN 0.2 mg/dL (0.2 - 1)
[2018-10-23] MEDS ORDERED: ONDANSETRON HCL INJ 2MG/ML 2ML 2 MG/ML VIAL IV PRN (14:30)
[2018-10-23] MEDS ORDERED: INSULIN LISPRO 100 UNIT/1 ML 3ML VIAL SQ ONE (14:30)
[2018-10-23] MEDS ORDERED: DEXTROSE 50% SYRINGE 50 ML IV PRN (14:30)
--- OUTSIDE RECORDS SUMMARY | 2018-10-23 14:40 | XMS REPORT | Clinical Summary ---
Author Author [facility] Organization [facility] Address Unknown Phone Unavailable Care Team Providers Care Plant Floor Automation Manager Name Role Phone AndrewLulu Henry PCP Allergies [...] s/p colectomy [PMH arthritis, anxiety, CAD, DM, PR, hypertension, 11/18/2016 diverticulitis s/p ex-lap (11/06), endoscopic [...] Area Manufactur er 09/20/2018 4301-02 / / [id number] Memb Seprafilm Adhen Kim 5x6 Cement/Pernell N/A: Abdomen GENZYME 4301-02 - [id number] ler/Adhesi DAVIS: Implanted: Qty: 1 on 10/30/2016 by ve BIO-SURG Kelvin Cotton MD Results Not on fileafter 10/22/2017 Insurance Payer Benefit Subscriber ID Type Phone Address Plan / Group MEDICARE MEDICARE A xxxxxxxxxx Medicare B CIGNA - MGD CARE CIGNA xxxxxxxxxxx HMO/POS HMO/POS/OP EN ACCESS Advance Directives For more information, please contact: [facility] [address] [place] [address] Date Inactivated Comments Code Status Date Activated 03/03/2017 5:47 PM Full Code 02/28/2017 6:47 AM This code status was determined by: Patient 11/11/2016 5:11 PM Full Code 10/21/2016 3:26 PM This code status was determined by: Patient 10/21/2016 3:26 PM Full Code 10/21/2016 5:54 AM This code status was determined by: Patient
[2018-10-23 14:48] LABS: BACTERIA,URINE MANY /HPF; WBC,URINE (MAN) 0-5 /HPF (0-5)
[2018-10-23 14:56] LABS: AMPHETAMINES SCREEN,URINE NEGATIVE (NEGATIVE); BENZODIAZEPINES SCREEN,URINE NEGATIVE (NEGATIVE); PHENCYCLIDINE SCREEN,URINE NEGATIVE (NEGATIVE)
[2018-10-23] MEDS: SODIUM CHLORIDE 0.9% 1000ML 1,000 ML IV SCH ×3 (15:00→22:00)
[2018-10-23] MEDS: INSULIN LISPRO 100 UNIT/1 ML 3ML VIAL SQ SCH ×2 (17:00→21:00)
--- NOTE | 2018-10-23 17:10 | NUR ---
report received from Mateus, patient to be reoriented and transferred to unit via stretcher
--- NOTE | 2018-10-23 17:35 | NUR ---
patient arrived on unit via stretcher, attempted to reorient the patient and am unable to do so. Patient only says, "yes," and "it hurts me" to any question asked. unable to determine if patient is oriented to self, place or time. No family is currently with patient, unable to obtain any information from patient. IV fluids are running, call jonas within reach, bed in lowest position and bed alarm on.
[2018-10-23 18:11] VITALS: BP 144/63
[2018-10-23 19:04] VITALS: BP 144/63
--- NOTE | 2018-10-23 19:09 | NUR ---
walking rounds completed with date night caregiver, patient family aware of change. call jonas within reach and bed in lowest position
[2018-10-23 20:00] VITALS: BP 144/65
[2018-10-23 20:08] LABS: CHOL/HDL RATIO 2.3 (3.0-3.6)
--- NOTE | 2018-10-23 20:37 | Diagnostic Imaging Report ---
EXAM: ABDOMEN-1VIEW (KUB), DATE: 10/23/2018 6:40 PM INDICATION: Pain. COMPARISON: None FINDINGS: LINES/TUBES: None BOWEL PATTERN: No evidence for obstruction. SOFT TISSUES: No abnormal calcifications. No mass effect. LUNG BASES: Lung bases are clear. Sternotomy wires. BONES: No acute findings. Degenerative changes of the lower lumbar spine. IMPRESSION: Nonobstructive bowel gas pattern. Signed by: Dr. Elliot Chavira M.D. on 10/23/2018 8:34 PM
[2018-10-23] MEDS: INSULIN GLARGINE 100 UNITS/ML VIAL SQ SCH (21:00)
--- NOTE | 2018-10-23 21:11 | Diagnostic Imaging Report ---
ADDENDUM #1 Dose modulation, iterative reconstruction, and/or weight based adjustment of the mA/kV was utilized to reduce the radiation dose to as low as reasonably achievable. Comparison was also made to the prior cervical spine CT of 05/23/2018. Signed by: Dr. Kailash Yu M.D. on 10/23/2018 9:23 PM ORIGINAL REPORT History: Trauma, fall Comparison studies: None Technique: Axial images were obtained through the cervical region. Coronal and sagittal images reconstructed from the axial data. Intravenous contrast: None Findings: Atlantoaxial articulation: Intact Alignment: Straightened curvature may be positional. No subluxations. Cervicomedullary junction: No abnormalities. Patent foramen magnum. Soft tissues: No gross acute abnormalities. Vertebrae: No fractures, neoplasm or infection. Degenerative changes: Small disc bulge with calcified anulus at C3-C4. Patent canal and foramina. Incidental findings: Mild scattered calcified atherosclerosis (bilateral carotid bulbs, right subclavian artery origin and right intradural segment of the vertebral artery). Partially imaged venous cannula in the right inferior neck. IMPRESSION: 1. No cervical spine fracture or subluxation. 2. Ligament, spinal cord and or vascular abnormalities cannot be excluded on the basis of this examination Signed by: Dr. Kailash Yu M.D. on 10/23/2018 9:08 PM
--- NOTE | 2018-10-23 21:25 | Diagnostic Imaging Report ---
History: Low back pain Comparison studies: Included lumbar spine from abdomen pelvis CT of 12/29/2017. Technique: Axial images were obtained through the lumbar spine. Coronal and sagittal images reconstructed from the axial data. Dose modulation, iterative reconstruction, and/or weight based adjustment of the mA/kV was utilized to reduce the radiation dose to as low as reasonably achievable. Intravenous contrast: None Findings: L5 is sacralized and there is a rudimentary disc at L5-S1. Alignment: Normal lordosis. No scoliosis. Approximately 3 mm degenerative anterolisthesis of L3 on L4 Soft tissues: No gross acute abnormalities. Paraspinal muscles: Unremarkable. Sacroiliac joints: No degenerative changes. Vertebrae: No fractures, infection or neoplasm. Degenerative changes: L1-L2: No abnormalities. L2-L3: Mild facet arthrosis. Patent canal and foramina. L3-L4: Mildly degenerated disc. Grade 1 anterolisthesis of L4 on L5 with associated uncovered disc/disc bulge, thickened ligamentum flavum and severe bilateral facet arthrosis with mild canal stenosis, narrowing of the bilateral subarticular recess and severe right and moderate left foraminal stenosis. L4-L5: Mildly degenerated disc. Disc bulge, thickened ligamentum flavum and severe bilateral facet arthrosis with severe left and moderate right foraminal stenosis. No significant canal stenosis. L5-S1: Transitional level with hypertrophic changes at the facets. Patent canal and foramina. Sacroiliac joints: Mild degenerative changes bilaterally. Incidental findings: Scattered calcified atherosclerosis with moderate plaque in the abdominal aorta. No aortic aneurysm. IMPRESSION: 1. No lumbar spine fracture or acute subluxation. 2. Degenerative changes most notable for mild canal stenosis at L3-L4 and severe facet arthrosis with moderate to severe foraminal stenosis at L3-L4 and at L4-5. 3. Transitional anatomy with sacralized L5. Signed by: Dr. Kailash Yu M.D. on 10/23/2018 9:22 PM
[2018-10-23 21:38] LABS: CREATINE KINASE MB 5.8 ng/mL (0-5.0)
[2018-10-24] VITALS (10 sets, daily range): BP systolic 144–201; BP diastolic 65–85
--- NOTE | 2018-10-24 01:25 | History and Physical ---
This is a 63-year-old female with a history of chronic pain syndrome, history of hypertension, history of coronary artery disease, history of hyperlipidemia, history of hypertension, was in usual state of health until the patient's found the patient with acute mental status changes, multiple falls, was down the floor, and comes in with EMS. HISTORY OF PRESENT ILLNESS: Ms. Redmond is a 63-year-old, was found to have multiple falls, multiple bruises. The patient was found by her on the floor soiled and the patient was cleaned up and put back in bed according to . After this, the patient was just not feeling right and the patient was brought into the Emergency Room by the with multiple falls, multiple bruises, and patient cannot ambulate and cannot also talk. The patient currently is in bed and status post CT scan, which is normal and although blood work so far has been normal. PAST MEDICAL HISTORY: As mentioned above, CAD, hypertension, hyperlipidemia, iron deficiency anemia, uncontrolled diabetes mellitus, reflux esophagitis, chronic low back pain, and hyperlipidemia. MEDICINES: That she takes at home, 2 capsules twice a day, [place] 10/325 q.8 hours p.r.n., q.6 p.r.n., gabapentin 300 mg capsules three times a day, 250 mg 1-3 tablets three times a day, Lantus dose unknown, pantoprazole sodium 40 mg q.a.m., Humalog 3 times a day dose unknown, folic acid 1 mg daily, ferrous sulfate 325 mg daily, Carafate 1 g b.i.d. and dicyclomine b.i.d. SURGICAL HISTORY: History of right knee surgery, hysterectomy 20 years ago, tonsillectomy, cholecystectomy, and history of CABG x2. SOCIAL HISTORY: Drinks with apparently. No IV drug abuse and no smoking. REVIEW OF SYSTEMS: Unable to obtain. The patient is not able to verbalize anything at this point of time. PHYSICAL EXAMINATION: VITAL SIGNS: Temperature is afebrile, pulse of 101, respirations of 21, blood pressure is 136/56, and pulse oximetry of 100%. HEENT: The patient with multiple bruises on the forehead. The patient is also having multiple bruises on the neck. Multiple bruises on the upper arms. CVS: S1, S2. Tachycardic. ABDOMEN: Tender diffusely. EXTREMITIES: No clubbing. Positive for erythema and bruises on the abdomen. Bruises on the knees bilaterally. Bruises on the ankle and also on the feet and also on bilateral elbow. NEUROLOGIC: The patient's mentation, again cannot verbalize at this time. The only thing she can verbalize is "I am in pain and cannot fixate." Pupils are reactive to light and accommodation. Rest of the neurological examination cannot be done because of the patient's inability to cooperate and to talk. LABORATORY VALUES: Initial white count is 10.49, hemoglobin of 12.6, hematocrit 35.8. Chemistry shows sodium of 133, potassium 5.1, BUN of 35, creatinine of 1.45, glucose from 284 to 295, calcium is 10.3, magnesium of 2.2. CK was 325, CK-MB 8.4. BNP was 132.2. TSH 0.072. Toxicology positive for opiates. Acetaminophen is less than 3, cannabinoids negative, amphetamines negative, benzos negative. Coags, INR is 0.94. Urine, trace leukocyte esterase. IMAGING: Chest x-ray shows mild patchy bilateral opacities, likely atelectasis. No evidence of lobar pneumonia. CT of the brain shows no acute abnormalities, stable from previous examinations. Additional includes ammonia of 66. ASSESSMENT: Acute mental status examination. The patient's neurological status cannot be assessed at this time. We will get Neurology consult secondary to neurological changes. MRI of the brain will be done. MRA of the neck will be done. Echocardiogram will be done. The patient's hemoglobin A1c will be done. Lipid panel will be done. The patient also is dehydrated with acute kidney injury. Rehydration and resuscitation will be done. Insulin sliding scale is reinstated and also we will start the patient on some Lantus 15 units at nighttime. GI prophylaxis is pantoprazole and DVT prophylaxis with SCDs will be started too. The patient's iron panel will be done and also ammonia will be repeated in the morning. Further recommendation per clinical course and also depending on the radiological findings. A social service consult was also done. Psychiatry consult was also done to evaluate possible depression too. MD ANGELIQUE Bellamy/MODL /[id number]
[2018-10-24 02:28] LABS: BASOPHILS % 0.3 % (0.0-1.0); EOSINOPHILS % 0.2 % (0.0-6.0); HEMATOCRIT 32.6 % (34.2-44.1); HEMOGLOBIN 11.1 g/dL (12.0-16.0); LYMPHOCYTES # (AUTO) 1.2 (1.0-3.2); MEAN CORPUSCULAR HEMOGLOBIN 31.1 pg (28-32); MEAN CORPUSCULAR VOLUME 91.3 fL (81-99); MONOCYTES # (AUTO) 0.7 (0.2-0.8); MONOCYTES % 7.7 % (4.4-11.3); NEUTROPHILS # (AUTO) 6.8 (2.1-6.9); NEUTROPHILS % 77.2 % (38.7-80.0); PLATELET COUNT 278 x10e3/uL (140-360); RED BLOOD COUNT 3.57 x10e6/uL (3.6-5.1); RED CELL DISTRIBUTION WIDTH 13.1 % (11.7-14.4)
--- NOTE | 2018-10-24 02:30 | Consultation ---
DATE OF CONSULTATION: 10/23/2018 Neurology Consult Note HISTORY OF PRESENT ILLNESS: Ms. Redmond is a 63-year-old woman with an extensive past medical history, admitted to [facility] on October 23, 2018 with altered mental status. Unfortunately, due to the patient's encephalopathy, she is unable to provide medical history. Therefore, history is obtained from the patient's daughter, who is at the bedside, and review of the electronic medical records. According to the patient's daughter, she last spoke to the patient on 10/21/2018. Per the patient's daughter, Ms. Redmond seem to be in her usual state of health. After this time, Ms. Redmond did not answer her phone. Therefore, her daughter cannot not say when the alteration in mental status began other than it began sometime after Friday. According to documentation from the Emergency Department, when the patient arrived at the hospital on October 23, 2018, she had experienced altered mental status for approximately three days. Ms. Redmond was described as being confused and having a decreased level of responsiveness. According to documentation from the Emergency Center, there has been no recent change in the patient's diabetic routine, consumption of alcohol recently, recent drug use or medication given prior to arrival. A fingerstick blood glucose was not low prior to arrival. There has been no weakness, numbness, or recent falls. There has been no difficulty walking. However, it should be noted the patient has multiple ecchymoses over her arms and legs on examination. This calls into question the given history of no recent falls or difficulty walking. On neurological examination in the Emergency Center, the patient was found to be alert, but disoriented. Ms. Redmond was also noted to be generally weak and to have an abnormal gait. While in the Emergency Center, a CT of the brain without contrast was performed. This study did not show evidence of recent large territorial ischemia or hemorrhage. Laboratory data collected in the emergency room revealed the patient to be dehydrated with acute kidney injury. Urinalysis revealed evidence of a possible urinary tract infection. A urine drug screen was positive for opiates. Ms. Redmond was admitted to [facility] under observation status for further evaluation and treatment of her symptoms. REVIEW OF SYSTEMS: Unable to obtain secondary to the patient being encephalopathic. PAST MEDICAL HISTORY: Hypertension, hyperlipidemia, diabetes mellitus, coronary artery disease, gastroesophageal reflux disease, chronic back pain and anemia. PAST SURGICAL HISTORY: A 3-vessel CABG, total hysterectomy, partial colectomy, possible appendectomy or cholecystectomy, lumbar spine surgery/surgeries. PAST HOSPITALIZATIONS: Surgeries/procedures as listed, childbirth, numerous hospitalizations for hypertension, elevated serum glucoses, etc. FAMILY MEDICAL HISTORY: Hypertension, diabetes mellitus and coronary artery disease. SOCIAL HISTORY: Ms. Redmond is . She is retired. The patient does have a prior history of tobacco use, but reportedly quit smoking following her cardiac bypass. The patient drinks alcohol socially. There is no reported recreational drug use. HOME MEDICATIONS: Reviewed. Please see the list of home medications available in the electronic medical record. HOSPITAL MEDICATIONS: Lantus, Humalog, Zofran, and sodium chloride. ALLERGIES: CEPHALOSPORINS, SULFA, KETOROLAC, TROMETHAMINE. NO KNOWN FOOD ALLERGIES. NO KNOWN ALLERGIES TO LATEX. NO KNOWN ALLERGIES TO IODINE OR OTHER CONTRAST MATERIALS. PHYSICAL EXAMINATION: VITAL SIGNS: Height 59 inches, weight 172 pounds, BMI 34.7 kg/m2. Blood pressure 136/56 mmHg, pulse 99 beats per minute, respiratory rate 20 breaths per minute, and oxygen saturation 95% on room air. GENERAL: The patient is awake and alert, poorly responsive. Obese. HEENT: Normocephalic, atraumatic. Pupils are equal, round, and sluggishly reactive to light. Moist mucous membranes. NECK: Supple. No appreciable thyromegaly. No appreciable carotid bruits. CARDIOVASCULAR: S1, S2, tachycardic, regular rhythm. No murmurs, rubs, or gallops. RESPIRATORY: Clear to auscultation bilaterally. No wheezes, rhonchi, or rales. EXTREMITIES: The skin is warm and dry. No clubbing, cyanosis, or edema. The posterior tibial and dorsalis pedis pulses are 1+ and symmetric. SKIN: Multiple ecchymoses over the arms and legs. NEUROLOGIC: Memory/Attention: The patient is awake and alert, poorly responsive. Ms. Redmond does not answer orientation questions. When asked a question, the patient states only, "it hurts." The patient does correctly identify her daughter. Cranial Nerves: Cranial nerve I - not tested. Cranial nerve II, III, IV, and - pupils are equal and round, react sluggishly to light (from 4 mm to 6 mm). Extraocular movements are grossly intact. No nystagmus. Cranial nerve V - sensation to light touch is grossly intact in the bilateral V1 through V3 distributions. Cranial nerve VII - the face is symmetric as are all facial movements. Cranial nerve VIII - hearing is intact to voice bilaterally. Strength: Bulk is normal. The patient is unable to participate in a formal assessment of strength. Ms. Redmond moves both arms to command. She withdraws both arms and both legs to peripheral noxious stimulation. Tone is normal. DTRs: Deep tendon reflexes are 1+ and symmetric at the triceps, biceps, brachioradialis, patellas, and Achilles. Plantar responses are flexor bilaterally. Sensation: Sensation is as per motor exam. Cerebellar: Unable to assess secondary to the patient being encephalopathic. Gait: Deferred. Speech: Spontaneous speech is limited without appreciable dysarthria or aphasia. Involuntary movements: None. Pronator Drift: None. LABORATORY DATA: A comprehensive metabolic panel is significant for sodium of 133, carbon dioxide of 20, BUN of 35, creatinine of 1.45, estimated GFR of 37, serum glucose of 321, calcium of 10.3, AST of 40, total protein of 8.2, and globulin of 4.2. Lactic acid is 12.2. Ammonia 66. B-natriuretic peptide is 130.2. TSH is 0.772. Hemoglobin A1c is 10.0. Total cholesterol 169, triglycerides 141, LDL cholesterol 67, HDL cholesterol 74. The CBC with differential and platelets revealed a white blood cell count of 10.49 with a left shift with 87.1% neutrophils, 7.2% lymphocytes, 5.0% monocytes, 0.0% eosinophils, and 0.2% basophils. The hemoglobin and hematocrit are 12.6 and 35.8, respectively. The platelet count is 310. The coagulation profile is within normal limits. A urinalysis is significant for cloudy urine with trace protein, 2+ glucose, trace leukocyte esterase, and many urine bacteria. A urine drug screen was positive for opiates. Serum acetaminophen level was less than 3. Blood and urine cultures have been collected and are pending. DIAGNOSTIC STUDIES: Electrocardiogram of 10/23/2018: Normal sinus rhythm at [address] of the brain without contrast 10/23/2018: On my review, there is no evidence of recent or remote large territorial ischemia, hemorrhage, mass, or mass effect. Cerebral volumes are appropriate for age. There are no findings compatible with chronic small vessel ischemic disease. Chest x-ray 10/23/2018: No acute radiographic abnormality. Mild patchy bibasilar opacities, likely atelectasis. No evidence of lobar pneumonia. Abdomen x-ray 10/23/2018: Nonobstructive bowel gas pattern. ASSESSMENT AND PLAN: Ms. Redmond is a 63-year-old woman with an extensive past medical history, admitted to [facility] with altered mental status. Unfortunately, due to her alteration in mental status, the patient's neurological examination is limited. However, there are no focal findings on her neurological examination. The patient's laboratory data and other diagnostic studies have been reviewed and are documented above. Ms. Redmond has a metabolic encephalopathy secondary to dehydration, acute kidney injury, probable urinary tract infection and opiate use. RECOMMENDATIONS: Are as follows: 1. Treat the patient's dehydration and acute kidney injury with intravenous fluids. Treat the patient's urinary tract infection with antibiotics. Correct electrolyte abnormalities as needed. 2. Limit the use of sedative/hypnotic and pain medications as these will alter the patient's sensorium. 3. Utilize environmental cues to combat delirium. 4. Defer treatment of the remaining medical comorbidities to the primary and other services following the patient. Thank you for this consultation. There are no other recommendations from the Neurology Service at this time. Please call again with any questions or concerns. TIME SPENT: 50 minutes. Johana Herndon MD CP/JAKE /[phone] [email or web address]
[2018-10-24 06:13] LABS: BASOPHILS % 0.3 % (0.0-1.0); EOSINOPHILS % 0.2 % (0.0-6.0); HEMATOCRIT 32.1 % (34.2-44.1); HEMOGLOBIN 10.6 g/dL (12.0-16.0); LYMPHOCYTES # (AUTO) 1.3 (1.0-3.2); LYMPHOCYTES % 13.8 % (18.0-39.1); MEAN CORPUSCULAR HEMOGLOBIN 30.5 pg (28-32); MEAN CORPUSCULAR VOLUME 92.2 fL (81-99); MONOCYTES # (AUTO) 0.6 (0.2-0.8); MONOCYTES % 6.6 % (4.4-11.3); NEUTROPHILS # (AUTO) 7.2 (2.1-6.9); NEUTROPHILS % 78.6 % (38.7-80.0); PLATELET COUNT 270 x10e3/uL (140-360); RED BLOOD COUNT 3.48 x10e6/uL (3.6-5.1); RED CELL DISTRIBUTION WIDTH 13.2 % (11.7-14.4)
[2018-10-24 06:29] LABS: CREATINE KINASE MB 5.9 ng/mL (0-5.0)
--- NOTE | 2018-10-24 06:45 | NUR ---
handoff report received, patient resting in room with call jonas in reach and bed in lowest position.
--- NOTE | 2018-10-24 07:10 | NUR ---
upon entering the patient's room, patient is found in bed asking for water and assistance to bathroom. ambulated with patient with minimum assistance. Patient is more alert and oriented to self and reoriented to place and time. patient returned back to bed, call jonas within reach, bed in lowest position and bed exit on.
[2018-10-24 07:12] LABS: ALBUMIN 3.6 g/dL (3.5-5.0); ANION GAP 17.4 mmol/L (8-16); CALCIUM 9.2 mg/dL (8.4-10.2); CREATININE, SERUM 1.11 mg/dL (0.57-1.11); POTASSIUM 4.4 mmol/L (3.5-5.1)
[2018-10-24] MEDS: INSULIN LISPRO 100 UNIT/1 ML 3ML VIAL SQ SCH ×4 (07:30→20:07)
--- NOTE | 2018-10-24 11:14 | NUR ---
Nutrition Screen Note RD Recommendation for Physician: Initiate a PO diet when medically feasible Plan of Care: RD following, monitoring for adequacy and tolerance Nutrition reason for involvement: Nutrition Risk Trigger - MST Primary Diagnose(s): AMS, dehydration, renal insufficiency Ht:59 in Wt:172lbs BMI:34.7 kg/m2 IBW:95lbs RD Assessment:(10/24/2018) Initial encounter with patient. Pt states that she was eating well [employer] and denies any N, V, D, nor has any difficulty chewing or swallowing. Denies any wt changes Current Diet: NPO Malnutrition Evaluation 10/24/2018 The patient does not meet criteria for a specified degree of malnutrition at this time. Will re-evaluate at follow-up as appropriate. Diet Education Needs Assessment: Diet education not indicated. Diet Adequacy: Not meeting calorie needs, Not meeting protein needs Tolerance: NPO Nutrition Care Level:shasha Mccray RD, LD, [facility]
[2018-10-24] MEDS: HYDRALAZINE HCL 20 MG/ML VIAL IV PRN ×2 (11:45→20:09)
--- NOTE | 2018-10-24 14:00 | NUR ---
spoke with Dr Gutierrez concerning patient being persistent and wanting water, per MD if patient is able to tolerate small sips of water with no coughing or choking, patient may have water only. Upon assessment of patient's ability to swallow, patient had no difficulties. No coughing or choking was noted.
[2018-10-24] MEDS: SODIUM CHLORIDE 0.9% 1000ML 1,000 ML IV SCH ×4 (14:50→21:11)
--- NOTE | 2018-10-24 18:50 | NUR ---
handoff report given to retail shift leader nurse, patient aware of chnage with family at bedside. call jonas within reach and bed in lowest position
[2018-10-24] MEDS: ACETAMINOPHEN 325 MG TAB PO PRN (20:03)
[2018-10-24] MEDS: INSULIN GLARGINE 100 UNITS/ML VIAL SQ SCH (20:47)
[2018-10-25] VITALS (7 sets, daily range): BP systolic 153–190; BP diastolic 68–82
[2018-10-25] MEDS: HYDRALAZINE HCL 20 MG/ML VIAL IV PRN ×3 (00:12→20:00)
[2018-10-25] MEDS: ACETAMINOPHEN 325 MG TAB PO PRN ×4 (02:07→23:48)
[2018-10-25] MEDS: SIMETHICONE 80 MG CHEW PO PRN ×2 (05:06→09:10)
[2018-10-25] MEDS ORDERED: DICYCLOMINE HCL 10 MG CAP PO PRN (05:15)
[2018-10-25] MEDS ORDERED: ACETAMINOPHEN/CODEINE 300MG - 30MG TAB PO PRN (05:15)
[2018-10-25 06:55] LABS: BASOPHILS # (AUTO) 0.1 (0.0-0.1); BASOPHILS % 0.6 % (0.0-1.0); EOSINOPHILS % 0.2 % (0.0-6.0); HEMATOCRIT 32.4 % (34.2-44.1); HEMOGLOBIN 10.5 g/dL (12.0-16.0); LYMPHOCYTES # (AUTO) 1.3 (1.0-3.2); LYMPHOCYTES % 15.7 % (18.0-39.1); MEAN CORPUSCULAR HEMOGLOBIN 30.5 pg (28-32); MEAN CORPUSCULAR HGB CONC 32.4 g/dL (31-35); MEAN CORPUSCULAR VOLUME 94.2 fL (81-99); MONOCYTES # (AUTO) 0.8 (0.2-0.8); NEUTROPHILS # (AUTO) 6.3 (2.1-6.9); NEUTROPHILS % 74.1 % (38.7-80.0); PLATELET COUNT 232 x10e3/uL (140-360); RED BLOOD COUNT 3.44 x10e6/uL (3.6-5.1)
[2018-10-25 07:01] LABS: ALANINE AMINOTRANSFERASE 15 IU/L (0-55); ALBUMIN 3.3 g/dL (3.5-5.0); ALKALINE PHOSPHATASE 106 IU/L (40-150); ANION GAP 13.6 mmol/L (8-16); BLOOD UREA NITROGEN 14 mg/dL (7-26); BUN/CREATININE RATIO 17 (6-25); CALCIUM 8.8 mg/dL (8.4-10.2); CARBON DIOXIDE 17 mmol/L (22-29); CHLORIDE 110 mmol/L (98-107); CREATININE, SERUM 0.84 mg/dL (0.57-1.11); EST GLOMERULAR FILTRATION RATE > 60 ML/MIN (60-); GLUCOSE 218 mg/dL (74-118); POTASSIUM 3.6 mmol/L (3.5-5.1); SODIUM 137 mmol/L (136-145)
[2018-10-25] MEDS: INSULIN LISPRO 100 UNIT/1 ML 3ML VIAL SQ SCH ×4 (08:05→19:54)
[2018-10-25] MEDS: SUCRALFATE 1 GM TAB PO SCH ×4 (08:05→20:12)
[2018-10-25] MEDS: VALSARTAN 80 MG TAB PO SCH (09:10)
[2018-10-25] MEDS: METOPROLOL SUCCINATE 25 MG TAB XL PO SCH ×2 (09:10→17:27)
[2018-10-25] MEDS: TAMSULOSIN HCL 0.4 MG CAP PO SCH (09:10)
[2018-10-25] MEDS: PANTOPRAZOLE SOD 40 MG TABEC PO SCH (09:10)
[2018-10-25] MEDS: ASPIRIN 81 MG CHEW TAB PO SCH (09:10)
--- NOTE | 2018-10-25 09:29 | NUR ---
Bedside report rec'd for transfer from the observation unit. Pt stable at this time with no c/o.
--- NOTE | 2018-10-25 11:19 | NUR ---
CASE MANAGEMENT INITIAL ASSESSMENT Cash Management Clerk to bedside to discuss plan of care with patient/family. CM/SW role and care transitions discussed. Anticipated discharge plan discussed along with duration of care. CM/SW discussed patients right to make decisions in care. CM/SW work hours given. Patient lives: Admit/Transfer: ER Hospital/ER visits since last admit:0 POA/Emergency contact: : SHABANA VASQUEZ [phone] Current/Previous Home Health: 0 PCP/Follow-up Care: DR. BENITEZ Current/Previous DME: [employer] Medications (referring to index hospitalization or the first time you were in the hospital) N/A a. Were changes made in your medications when you were in the hospital on [date of index hospitalization]? Yes No Not sure Explain: Note: If no or not sure, please skip to question d b. Did you understand the changes? Yes No Explain: c. Were you able to obtain your new medications right away? Yes No n/a SNF only Explain: d. Were you able to take your medications like the doctor wanted you to? Yes No Explain: e. Did the hospital give you an accurate, easy to understand list of medications when you left? Yes No n/a SNF only Explain: Scale of 1-10 how comfortable does patient feel with disease management in outpatient settin Other Services: 0 Employment Status: UNEMPLOYED; HOUSEWIFE Areas of Concerns: DENIES ANY Referral Needs: NONE Education Needs: IF ANY NEW MEDS/DX IMM/KELLY given and signed (if applicable): N/A Goal for discharge: TO RETURN HOME W/ CM/SW left business card at the bedside with contact information. Name and number was also written on the patients whiteboard. Patient verbalized understanding of discussion. CM will follow-up with ongoing discharge and transition of care needs.
[2018-10-25] MEDS: SODIUM CHLORIDE 0.9% 1000ML 1,000 ML IV SCH ×2 (13:20→19:43)
[2018-10-25] MEDS: INSULIN GLARGINE 100 UNITS/ML VIAL SQ SCH (20:13)
[2018-10-25] MEDS ORDERED: ATORVASTATIN 20 MG TAB PO SCH (21:00)
[2018-10-26] VITALS (7 sets, daily range): BP systolic 158–185; BP diastolic 70–90
[2018-10-26] MEDS: SODIUM CHLORIDE 0.9% 1000ML 1,000 ML IV SCH (02:26)
[2018-10-26] MEDS: HYDRALAZINE HCL 20 MG/ML VIAL IV PRN ×2 (04:29→11:08)
--- NOTE | 2018-10-26 08:30 | Progress Note ---
DATE: SUBJECTIVE: The patient is a 63-year-old female, who comes with repeated falls, toxic encephalopathy, metabolic encephalopathy, acute renal failure. Currently, she is doing well, has been walking, but in need of physical therapy and rehabilitation secondary to drug overdose and also with repeated falls with multiple contusions. OBJECTIVE: VITAL SIGNS: Temperature is 97.8, pulse of 89, respirations of 18, blood pressure is 179/77, pulse ox of 98 %. HEENT: Multiple bruises on the head, on the face, and also in the lower and upper extremities. EXTREMITIES: Positive for multiple bruises. CVS: S1, S2, tachycardic. ABDOMEN: Nontender and nondistended. EXTREMITIES: No clubbing. No cyanosis. Positive for edema. MEDICATIONS: She is on cc of sodium chloride, we will stop that. The patient is on hydralazine q.6 hours for blood pressure control, atorvastatin for cholesterol, metoprolol 25 mg twice a day, valsartan 80 mg, tamsulosin 0.4 mg, pantoprazole 40, aspirin 81, insulin glargine 10 units, Zofran 4 mg as needed. LABORATORY DATA: The patient's laboratory values; yesterday's white count was 8.45, hemoglobin and hematocrit of 10.5 and 32.5. Sodium 137, BUN 14, creatinine 0.84, and glucose of 190. ASSESSMENT: 1. Toxic encephalopathy. 2. Metabolic encephalopathy. 3. Hypertension. 4. Uncontrolled diabetes mellitus. 5. Multiple falls. 6. History of chronic pain and pain medicine dependency. PLAN: Plan is to consult PT and OT for physical therapy, possible SNF transfer. If the patient is not accepted to SNF, the patient can be discharged today and to be followed up with the primary care physician. The patient has been counseled on pain medications and also the overuse of pain medication and anxiolytics. Further recommendation per clinical course. The patient is stable. We will Hep-Lock the IV fluids now and continue with the current regimen. MD ANGELIQUE Bellamy/JACKIEL /[id number]
[2018-10-26] MEDS: VALSARTAN 80 MG TAB PO SCH (08:32)
[2018-10-26] MEDS: ASPIRIN 81 MG CHEW TAB PO SCH (08:32)
[2018-10-26] MEDS: SUCRALFATE 1 GM TAB PO SCH ×3 (08:32→17:11)
[2018-10-26] MEDS: PANTOPRAZOLE SOD 40 MG TABEC PO SCH (08:32)
[2018-10-26] MEDS: METOPROLOL SUCCINATE 25 MG TAB XL PO SCH ×2 (08:32→17:11)
[2018-10-26] MEDS: TAMSULOSIN HCL 0.4 MG CAP PO SCH (08:32)
[2018-10-26] MEDS: INSULIN LISPRO 100 UNIT/1 ML 3ML VIAL SQ SCH ×3 (08:33→17:11)
--- NOTE | 2018-10-26 11:26 | NUR ---
SPOKE WITH PT AND CONFIRMED SHE REQUESTED [facility] ON [address]. CALLED AND SPOKE WITH ELLY AT [facility] [phone], SHE STATES SHE DOES NOT HAVE THIS PERSON IN THEIR SYSTEM. SHE STATES THAT THE POLICY IS TO FAX CLINICALS TO [phone] AND THEY WILL REVIEW AND SET UP APPOINTMENT FOR PT TO COME IN AND FOLLOW UP TO SEE WHAT THEY QUALIFY FOR. FAXED CLINICALS.
[2018-10-26 11:34] LABS: ANION GAP 11.6 mmol/L (8-16); CALCIUM 9.1 mg/dL (8.4-10.2); CREATININE, SERUM 0.96 mg/dL (0.57-1.11); POTASSIUM 3.6 mmol/L (3.5-5.1)
[2018-10-26] MEDS ORDERED: FUROSEMIDE INJ 10 MG/ML 2 ML VIAL IV ONE (13:45)
[2018-10-26] MEDS: ACETAMINOPHEN 325 MG TAB PO PRN (13:48)
--- NOTE | 2018-10-26 14:47 | NUR ---
DISCHARGE INSTRUCTIONS GIVEN. PT VERBALIZED UNDERSTANDING. RIGHT THUMB IV AND RIGHT EJ IV D/C AND PRESSURE DRESSING APPLIED. PT STATES SHE IS GOING TO REHAB FACILITY STRAIGHT FROM HERE. PT AWAITING DAUGHTER TO ARRIVE FOR RIDE PER PT SHE SHOULD ARRIVE BY 1500.
[2018-10-26] MEDS ORDERED: ONDANSETRON HCL 4 MG ORAL DISINTEGRATING TAB PO PRN (15:15)
[2018-10-26] MEDS ORDERED: ATORVASTATIN 40 MG TAB PO SCH (21:00)
== END 2018-10-26 18:01 | disposition home or self-care (01) | DRG 682 ==
LOC: ER 11:29 → ERHOLD 14:37 → IMCU 17:22 → OBSVTOIN 10-25 08:39 → MED/SURG 10-25 09:25
PROVIDERS: ADMIT Family Medicine; ATTEND Family Medicine
DX: N17.9 Acute kidney failure, unspecified (principal); G92 Toxic encephalopathy; J98.11 Atelectasis; E78.5 Hyperlipidemia, unspecified; E86.0 Dehydration; I12.9 Hypertensive chronic kidney disease with stage 1 through stage 4 chronic kidney disease, or unspecified chronic kidney disease; E11.22 Type 2 diabetes mellitus with diabetic chronic kidney disease; N18.3 Chronic kidney disease, stage 3 (moderate); E11.65 Type 2 diabetes mellitus with hyperglycemia; G89.4 Chronic pain syndrome; Z79.891 Long term (current) use of opiate analgesic; I25.10 Atherosclerotic heart disease of native coronary artery without angina pectoris; Z95.1 Presence of aortocoronary bypass graft; Z90.710 Acquired absence of both cervix and uterus; Z90.49 Acquired absence of other specified parts of digestive tract; Z79.4 Long term (current) use of insulin
CPT/HCPCS: 36415; 70450; 71045; 72125; 72131; 74018; 80048; 80053; 80061; 80307; 80329; 81001; 82140; 82550; 82553; 82948; 83036; 83605; 83735; 83880; 84443; 84484; 85025; 85610; 85730; 87040; 87086; 93005; 93306; 97139; 99284; G0378; J0360; J1815; J1940; J7030

== ENCOUNTER 2020-10-23 13:10 | Inpatient (IN) | payer OTHER, MEDICARE ==
[~2020-10-23] VITALS: Ht 149.9 cm; Wt 70.5 kg
[2020-10-23 14:30] LABS: BASOPHILS % 0.8 % (0.0-1.0); EOSINOPHILS # (AUTO) 0.1 (0.0-0.4); EOSINOPHILS % 1.6 % (0.0-6.0); HEMATOCRIT 39.8 % (34.2-44.1); HEMOGLOBIN 13.4 g/dL (12.0-16.0); LYMPHOCYTES # (AUTO) 1.9 (1.0-3.2); LYMPHOCYTES % 37.5 % (18.0-39.1); MEAN CORPUSCULAR HEMOGLOBIN 30.1 pg (28-32); MEAN CORPUSCULAR HGB CONC 33.7 g/dL (31-35); MEAN CORPUSCULAR VOLUME 89.4 fL (81-99); MONOCYTES # (AUTO) 0.3 (0.2-0.8); MONOCYTES % 5.1 % (4.4-11.3); NEUTROPHILS # (AUTO) 2.8 (2.1-6.9); NEUTROPHILS % 54.8 % (38.7-80.0); PLATELET COUNT 218 x10e3/uL (140-360); RED BLOOD COUNT 4.45 x10e6/uL (3.6-5.1); RED CELL DISTRIBUTION WIDTH 12.5 % (11.7-14.4)
[2020-10-23] MEDS ORDERED: ONDANSETRON HCL INJ 2MG/ML 2ML 2 MG/ML VIAL IV STA ×2 (14:44→18:52)
[2020-10-23] MEDS ORDERED: FENTANYL CITRATE/PF 100MCG/2 ML INJ IV ONE (14:45)
[2020-10-23 14:52] LABS: ALBUMIN 3.9 g/dL (3.5-5.0); ALBUMIN/GLOBULIN RATIO 0.9 (0.8-2.0); ANION GAP 16.2 mmol/L (8-16); CALCIUM 9.2 mg/dL (8.4-10.2); CREATININE, SERUM 1.36 mg/dL (0.57-1.11); POTASSIUM 5.2 mmol/L (3.5-5.1)
[2020-10-23] MEDS ORDERED: SODIUM CHLORIDE 0.9% 1000ML 1,000 ML IV SCH (15:00)
[2020-10-23] MEDS ORDERED: IOPAMIDOL 370 MG/ML 200 ML INFUS..BTL INJ ONE (15:58)
[2020-10-23] MEDS ORDERED: SODIUM CHLORIDE 0.9% 50ML 50 ML ONE (15:58)
[2020-10-23] MEDS ORDERED: NITROGLYCERIN 0.4 MG SUBL SL PRN (16:15)
[2020-10-23] MEDS ORDERED: TYLENOL325 MG PO (17:29)
[2020-10-23] MEDS ORDERED: BACLOFEN20 MG PO (17:29)
[2020-10-23] MEDS ORDERED: PANTOPRAZOLE SO20 MG PO (17:29)
[2020-10-23] MEDS ORDERED: MELATONIN3 M1 PO (17:29)
[2020-10-23] MEDS ORDERED: CLARITIN10 MG PO (17:29)
[2020-10-23] MEDS ORDERED: CYMBALTA30 MG PO (17:29)
[2020-10-23] MEDS ORDERED: TRAZODONE HCL50 MG PO (17:29)
[2020-10-23] MEDS ORDERED: FLOMAX0.4 MG PO (17:29)
[2020-10-23] MEDS ORDERED: NEURONTIN100 MG PO (17:29)
[2020-10-23] MEDS ORDERED: DIOVAN80 MG PO (17:29)
[2020-10-23] MEDS ORDERED: FOLIC ACID0.4 MG PO (17:29)
[2020-10-23] MEDS ORDERED: PROPRANOLOL HCL10 MG PO (17:29)
[2020-10-23] MEDS ORDERED: NITROGLYCERIN0.4 MG SL (17:29)
[2020-10-23] MEDS ORDERED: LOMOTIL TABLET1 EACH PO (17:29)
[2020-10-23] MEDS ORDERED: DICYCLOMINE HCL20 MG PO (17:29)
[2020-10-23] MEDS: MORPHINE SULFATE INJ 2 MG/ML SYR IV PRN ×2 (19:06→23:06)
[2020-10-23] MEDS ORDERED: SODIUM CHLORIDE 0.9% 1000ML 1,000 ML ONE (19:09)
[2020-10-23 20:00] VITALS: BP_SYST 120; BP_SYST 213; BP_DIAS 68; BP_DIAS 73
[2020-10-23] MEDS: HYDRALAZINE HCL 20 MG/ML VIAL IV PRN (22:23)
[2020-10-23 22:34] VITALS: BP 213/73
[2020-10-23 22:40] VITALS: BP 213/73
[2020-10-23] MEDS: ONDANSETRON HCL INJ 2MG/ML 2ML 2 MG/ML VIAL IV PRN (23:06)
[2020-10-24] VITALS (9 sets, daily range): BP systolic 111–181; BP diastolic 50–76
[2020-10-24] MEDS: ONDANSETRON HCL INJ 2MG/ML 2ML 2 MG/ML VIAL IV PRN ×2 (03:06→15:23)
[2020-10-24] MEDS: MORPHINE SULFATE INJ 2 MG/ML SYR IV PRN ×3 (03:06→11:15)
[2020-10-24 06:07] LABS: BASOPHILS % 0.4 % (0.0-1.0); EOSINOPHILS # (AUTO) 0.1 (0.0-0.4); HEMATOCRIT 36.6 % (34.2-44.1); HEMOGLOBIN 12.4 g/dL (12.0-16.0); LYMPHOCYTES # (AUTO) 2.5 (1.0-3.2); LYMPHOCYTES % 36.9 % (18.0-39.1); MEAN CORPUSCULAR HEMOGLOBIN 30.7 pg (28-32); MEAN CORPUSCULAR HGB CONC 33.9 g/dL (31-35); MEAN CORPUSCULAR VOLUME 90.6 fL (81-99); MONOCYTES # (AUTO) 0.5 (0.2-0.8); MONOCYTES % 7.6 % (4.4-11.3); NEUTROPHILS # (AUTO) 3.6 (2.1-6.9); PLATELET COUNT 201 x10e3/uL (140-360); RED BLOOD COUNT 4.04 x10e6/uL (3.6-5.1); RED CELL DISTRIBUTION WIDTH 12.7 % (11.7-14.4)
[2020-10-24 06:31] LABS: ANION GAP 13.1 mmol/L (8-16); CALCIUM 8.9 mg/dL (8.4-10.2); CREATININE, SERUM 1.34 mg/dL (0.57-1.11); POTASSIUM 5.1 mmol/L (3.5-5.1)
[2020-10-24 06:58] LABS: CREATINE KINASE MB 1.3 ng/mL (0-5.0)
[2020-10-24] MEDS: HYDRALAZINE HCL 20 MG/ML VIAL IV PRN (10:07)
[2020-10-24] MEDS: INSULIN LISPRO 100 UNIT/1 ML 3ML VIAL SQ SCH ×3 (11:30→20:57)
[2020-10-24] MEDS ORDERED: DEXTROSE 50% SYRINGE 50 ML IV PRN (12:00)
[2020-10-24 14:08] LABS: CHOL/HDL RATIO 2.6 (3.0-3.6)
[2020-10-24] MEDS: GABAPENTIN 100 MG CAP PO SCH ×2 (14:42→20:17)
[2020-10-24] MEDS ORDERED: GABAPENTIN 100 MG CAP ONE (14:47)
[2020-10-24] MEDS: HYDROMORPHONE 1MG/1ML INJ IV PRN ×2 (15:23→20:14)
[2020-10-24] MEDS: INSULIN GLARGINE 100 UNITS/ML VIAL SQ SCH ×2 (16:21→20:28)
[2020-10-24] MEDS ORDERED: INSULIN LISPRO 100 UNIT/1 ML 3ML VIAL SQ SCH (16:30)
[2020-10-24 17:44] LABS: CREATINE KINASE MB 1.4 ng/mL (0-5.0)
[2020-10-24] MEDS: MELATONIN 5 MG TABLET PO SCH (20:16)
[2020-10-24] MEDS: ATORVASTATIN 40 MG TAB PO SCH (20:16)
[2020-10-24] MEDS: METOPROLOL SUCCINATE 25 MG TAB XL PO SCH (20:17)
[2020-10-25] VITALS (7 sets, daily range): BP systolic 95–184; BP diastolic 59–81
[2020-10-25] MEDS: HYDROMORPHONE 1MG/1ML INJ IV PRN ×5 (03:18→20:20)
[2020-10-25] MEDS: INSULIN LISPRO 100 UNIT/1 ML 3ML VIAL SQ SCH ×4 (07:30→21:00)
[2020-10-25] MEDS: ONDANSETRON HCL INJ 2MG/ML 2ML 2 MG/ML VIAL IV PRN ×4 (07:43→20:20)
[2020-10-25] MEDS: TAMSULOSIN HCL 0.4 MG CAP PO SCH (09:00)
[2020-10-25] MEDS: LORATADINE 10 MG TAB PO SCH (09:00)
[2020-10-25] MEDS: GABAPENTIN 100 MG CAP PO SCH ×3 (09:00→20:14)
[2020-10-25] MEDS: DICYCLOMINE HCL 20 MG TAB PO SCH (09:00)
[2020-10-25] MEDS: MELATONIN 5 MG TABLET PO SCH (20:14)
[2020-10-25] MEDS: ATORVASTATIN 40 MG TAB PO SCH (20:14)
[2020-10-25] MEDS: INSULIN GLARGINE 100 UNITS/ML VIAL SQ SCH (21:00)
[2020-10-25] MEDS: METOPROLOL SUCCINATE 25 MG TAB XL PO SCH (22:54)
[2020-10-26] VITALS (10 sets, daily range): BP systolic 135–195; BP diastolic 52–113
[2020-10-26] MEDS: ONDANSETRON HCL INJ 2MG/ML 2ML 2 MG/ML VIAL IV PRN ×7 (00:11→19:33)
[2020-10-26] MEDS: HYDRALAZINE HCL 20 MG/ML VIAL IV PRN (00:38)
[2020-10-26] MEDS: HYDROMORPHONE 1MG/1ML INJ IV PRN ×5 (00:39→19:33)
[2020-10-26] MEDS: MORPHINE SULFATE INJ 2 MG/ML SYR IV PRN ×2 (03:19→22:45)
[2020-10-26 05:12] LABS: BASOPHILS % 0.4 % (0.0-1.0); EOSINOPHILS # (AUTO) 0.2 (0.0-0.4); EOSINOPHILS % 2.2 % (0.0-6.0); HEMATOCRIT 36.4 % (34.2-44.1); HEMOGLOBIN 12.4 g/dL (12.0-16.0); LYMPHOCYTES # (AUTO) 2.3 (1.0-3.2); LYMPHOCYTES % 32.9 % (18.0-39.1); MEAN CORPUSCULAR HEMOGLOBIN 31.1 pg (28-32); MEAN CORPUSCULAR HGB CONC 34.1 g/dL (31-35); MEAN CORPUSCULAR VOLUME 91.2 fL (81-99); MONOCYTES # (AUTO) 0.5 (0.2-0.8); MONOCYTES % 7.7 % (4.4-11.3); NEUTROPHILS # (AUTO) 3.9 (2.1-6.9); NEUTROPHILS % 56.7 % (38.7-80.0); PLATELET COUNT 193 x10e3/uL (140-360); RED BLOOD COUNT 3.99 x10e6/uL (3.6-5.1); RED CELL DISTRIBUTION WIDTH 12.7 % (11.7-14.4)
[2020-10-26 05:28] LABS: ANION GAP 14.4 mmol/L (8-16); CALCIUM 9.1 mg/dL (8.4-10.2); CREATININE, SERUM 0.98 mg/dL (0.57-1.11); POTASSIUM 5.4 mmol/L (3.5-5.1)
[2020-10-26] MEDS: AZTREONAM 1 GM/NS 50 ML 50 ML IV SCH ×3 (06:00→22:23)
[2020-10-26] MEDS ORDERED: SODIUM CHLORIDE 0.9% 250ML 250 ML ONE (06:07)
[2020-10-26] MEDS: GABAPENTIN 100 MG CAP PO SCH ×3 (09:43→20:38)
[2020-10-26] MEDS: DICYCLOMINE HCL 20 MG TAB PO SCH (09:43)
[2020-10-26] MEDS: LORATADINE 10 MG TAB PO SCH (09:43)
[2020-10-26] MEDS: TAMSULOSIN HCL 0.4 MG CAP PO SCH (09:43)
[2020-10-26] MEDS ORDERED: CITRATE OF MAGNESIA 300ML BOTTLE PO ONE (10:00)
[2020-10-26] MEDS: INSULIN LISPRO 100 UNIT/1 ML 3ML VIAL SQ SCH ×4 (11:30→21:00)
[2020-10-26] MEDS: METRONIDAZOLE 500 MG TAB PO SCH ×2 (13:31→17:11)
[2020-10-26] MEDS: NEOMYCIN SULFATE 500 MG TAB PO SCH ×2 (14:21→17:12)
[2020-10-26] MEDS: ATORVASTATIN 40 MG TAB PO SCH (20:38)
[2020-10-26] MEDS: MELATONIN 5 MG TABLET PO SCH (20:38)
[2020-10-26] MEDS: METOPROLOL SUCCINATE 25 MG TAB XL PO SCH (20:39)
[2020-10-26] MEDS: INSULIN GLARGINE 100 UNITS/ML VIAL SQ SCH (21:00)
[2020-10-27] VITALS (7 sets, daily range): BP systolic 102–159; BP diastolic 48–89
[2020-10-27] MEDS: METRONIDAZOLE 500 MG TAB PO SCH
[2020-10-27] MEDS: NEOMYCIN SULFATE 500 MG TAB PO SCH
[2020-10-27] MEDS: HYDROMORPHONE 1MG/1ML INJ IV PRN ×3 (00:11→10:12)
[2020-10-27] MEDS: ONDANSETRON HCL INJ 2MG/ML 2ML 2 MG/ML VIAL IV PRN ×3 (00:11→10:11)
[2020-10-27] MEDS: MORPHINE SULFATE INJ 2 MG/ML SYR IV PRN (03:48)
[2020-10-27] MEDS: AZTREONAM 1 GM/NS 50 ML 50 ML IV SCH ×3 (05:51→23:00)
[2020-10-27] MEDS: INSULIN LISPRO 100 UNIT/1 ML 3ML VIAL SQ SCH ×4 (07:30→21:00)
[2020-10-27 08:01] LABS: ANION GAP 12.6 mmol/L (8-16); CALCIUM 8.8 mg/dL (8.4-10.2); POTASSIUM 4.6 mmol/L (3.5-5.1)
[2020-10-27 08:22] LABS: BASOPHILS % 0.6 % (0.0-1.0); EOSINOPHILS # (AUTO) 0.2 (0.0-0.4); EOSINOPHILS % 3.3 % (0.0-6.0); HEMATOCRIT 35.5 % (34.2-44.1); LYMPHOCYTES # (AUTO) 2.5 (1.0-3.2); LYMPHOCYTES % 35.7 % (18.0-39.1); MEAN CORPUSCULAR HGB CONC 33.8 g/dL (31-35); MEAN CORPUSCULAR VOLUME 91.7 fL (81-99); MONOCYTES # (AUTO) 0.5 (0.2-0.8); MONOCYTES % 7.5 % (4.4-11.3); NEUTROPHILS # (AUTO) 3.7 (2.1-6.9); NEUTROPHILS % 52.6 % (38.7-80.0); PLATELET COUNT 193 x10e3/uL (140-360); RED BLOOD COUNT 3.87 x10e6/uL (3.6-5.1); RED CELL DISTRIBUTION WIDTH 12.8 % (11.7-14.4)
[2020-10-27] MEDS: LORATADINE 10 MG TAB PO SCH (10:00)
[2020-10-27] MEDS: TAMSULOSIN HCL 0.4 MG CAP PO SCH (10:00)
[2020-10-27] MEDS: DICYCLOMINE HCL 20 MG TAB PO SCH (10:00)
[2020-10-27] MEDS: GABAPENTIN 100 MG CAP PO SCH ×3 (10:00→22:13)
[2020-10-27] MEDS: LEVOFLOXACIN 500MG/D5W 100ML 100 ML IV SCH (11:04)
[2020-10-27] MEDS ORDERED: IOPAMIDOL 300MG/ML 50ML INFUS..BTL IV ONE (11:30)
[2020-10-27] MEDS ORDERED: BUPIVACAINE HCL 0.5% INJ 30 ML VIAL INJ ONE (11:30)
[2020-10-27] MEDS ORDERED: NALOXONE HCL INJ 0.4 MG/ML AMP IV PRN (13:30)
[2020-10-27] MEDS: SODIUM CHLORIDE 0.9% 1000ML 1,000 ML IV SCH ×3 (13:30→20:18)
[2020-10-27] MEDS ORDERED: DIPHENHYDRAMINE HCL 25 MG CAP PO PRN (13:30)
[2020-10-27] MEDS ORDERED: HYDROMORPHONE 2MG/ML 2 MG/ML ML ONE (13:56)
[2020-10-27] MEDS ORDERED: ACETAMINOPHEN 1000 MG/100 ML IV PRN (14:00)
[2020-10-27] MEDS ORDERED: FENTANYL CITRATE/PF 100MCG/2 ML INJ ONE (14:19)
[2020-10-27] MEDS ORDERED: MORPHINE SULFATE 1 MG/ML 30ML PCA ONE (14:37)
[2020-10-27] MEDS ORDERED: SEVOFLURANE INHAL SOLN 250 ML PEN BTL ONE (17:22)
[2020-10-27] MEDS ORDERED: PROPOFOL IV EMULSION 10 MG/ML 20 ML VIAL ONE (17:22)
[2020-10-27] MEDS ORDERED: ROCURONIUM BROMIDE 10 MG/ML 5ML VIAL IV ONE (17:22)
[2020-10-27] MEDS ORDERED: POVIDONE IODINE 0.05% 0.05 % ML PO ONE (17:22)
[2020-10-27] MEDS ORDERED: ONDANSETRON HCL INJ 2MG/ML 2ML 2 MG/ML VIAL ONE (17:22)
[2020-10-27] MEDS ORDERED: LIDOCAINE HCL 2% LOCAL INJ 5 ML SDV VIAL INJ ONE (17:22)
[2020-10-27] MEDS ORDERED: SUCCINYLCHOLINE CHLORIDE 20 MG/ML 10ML VIAL ONE (17:22)
[2020-10-27] MEDS: MORPHINE SULFATE 1 MG/ML 30ML PCA IV PRN (21:00)
[2020-10-27] MEDS: METOPROLOL SUCCINATE 25 MG TAB XL PO SCH (21:00)
[2020-10-27] MEDS: ATORVASTATIN 40 MG TAB PO SCH (22:13)
[2020-10-27] MEDS: INSULIN GLARGINE 100 UNITS/ML VIAL SQ SCH (22:17)
[2020-10-27] MEDS: MELATONIN 5 MG TABLET PO SCH (23:00)
[2020-10-28] VITALS (10 sets, daily range): BP systolic 140–189; BP diastolic 61–71
[2020-10-28] MEDS: AZTREONAM 1 GM/NS 50 ML 50 ML IV SCH ×3 (05:29→22:13)
[2020-10-28 06:03] LABS: BASOPHILS % 0.1 % (0.0-1.0); EOSINOPHILS # (AUTO) 0.2 (0.0-0.4); EOSINOPHILS % 2.4 % (0.0-6.0); HEMATOCRIT 31.1 % (34.2-44.1); HEMOGLOBIN 10.3 g/dL (12.0-16.0); LYMPHOCYTES # (AUTO) 1.4 (1.0-3.2); MEAN CORPUSCULAR HEMOGLOBIN 30.6 pg (28-32); MEAN CORPUSCULAR HGB CONC 33.1 g/dL (31-35); MEAN CORPUSCULAR VOLUME 92.3 fL (81-99); MONOCYTES # (AUTO) 0.4 (0.2-0.8); MONOCYTES % 5.2 % (4.4-11.3); NEUTROPHILS # (AUTO) 5.5 (2.1-6.9); NEUTROPHILS % 72.9 % (38.7-80.0); PLATELET COUNT 160 x10e3/uL (140-360); RED BLOOD COUNT 3.37 x10e6/uL (3.6-5.1); RED CELL DISTRIBUTION WIDTH 12.8 % (11.7-14.4)
[2020-10-28 06:27] LABS: ANION GAP 11.9 mmol/L (8-16); BLOOD UREA NITROGEN 9 mg/dL (7-26); BUN/CREATININE RATIO 11 (6-25); CALCIUM 8.1 mg/dL (8.4-10.2); CARBON DIOXIDE 24 mmol/L (22-29); CHLORIDE 103 mmol/L (98-107); CREATININE, SERUM 0.84 mg/dL (0.57-1.11); EST GLOMERULAR FILTRATION RATE > 60 ML/MIN (60-); GLUCOSE 142 mg/dL (74-118); POTASSIUM 4.9 mmol/L (3.5-5.1); SODIUM 134 mmol/L (136-145)
[2020-10-28] MEDS: MORPHINE SULFATE 1 MG/ML 30ML PCA IV PRN ×2 (06:27→14:00)
[2020-10-28] MEDS: INSULIN LISPRO 100 UNIT/1 ML 3ML VIAL SQ SCH ×4 (07:30→20:31)
[2020-10-28] MEDS: TAMSULOSIN HCL 0.4 MG CAP PO SCH (08:50)
[2020-10-28] MEDS: LORATADINE 10 MG TAB PO SCH (08:50)
[2020-10-28] MEDS: GABAPENTIN 100 MG CAP PO SCH ×3 (08:50→21:07)
[2020-10-28] MEDS: DICYCLOMINE HCL 20 MG TAB PO SCH (08:50)
[2020-10-28] MEDS: SODIUM CHLORIDE 0.9% 1000ML 1,000 ML IV SCH ×2 (08:50→21:08)
[2020-10-28] MEDS: LEVOFLOXACIN 500MG/D5W 100ML 100 ML IV SCH (12:04)
[2020-10-28] MEDS: METOPROLOL SUCCINATE 25 MG TAB XL PO SCH (21:07)
[2020-10-28] MEDS: ATORVASTATIN 40 MG TAB PO SCH (21:07)
[2020-10-28] MEDS: MELATONIN 5 MG TABLET PO SCH (21:07)
[2020-10-28] MEDS: INSULIN GLARGINE 100 UNITS/ML VIAL SQ SCH (21:36)
[2020-10-29] VITALS (7 sets, daily range): BP systolic 148–186; BP diastolic 52–70
[2020-10-29] MEDS: MORPHINE SULFATE 1 MG/ML 30ML PCA IV PRN ×2 (00:06→10:41)
[2020-10-29] MEDS: AZTREONAM 1 GM/NS 50 ML 50 ML IV SCH ×3 (06:36→21:24)
[2020-10-29] MEDS: SODIUM CHLORIDE 0.9% 1000ML 1,000 ML IV SCH ×2 (06:39→13:39)
[2020-10-29] MEDS: GABAPENTIN 100 MG CAP PO SCH ×3 (08:51→20:35)
[2020-10-29] MEDS: TAMSULOSIN HCL 0.4 MG CAP PO SCH (08:51)
[2020-10-29] MEDS: LORATADINE 10 MG TAB PO SCH (08:51)
[2020-10-29] MEDS: DICYCLOMINE HCL 20 MG TAB PO SCH (08:51)
[2020-10-29] MEDS ORDERED: VALSARTAN 80 MG TAB PO SCH (09:00)
[2020-10-29] MEDS: INSULIN LISPRO 100 UNIT/1 ML 3ML VIAL SQ SCH ×4 (10:46→20:05)
[2020-10-29] MEDS: LEVOFLOXACIN 500MG/D5W 100ML 100 ML IV SCH (11:26)
[2020-10-29] MEDS: HYDRALAZINE HCL 20 MG/ML VIAL IV PRN (16:18)
[2020-10-29] MEDS: ATORVASTATIN 40 MG TAB PO SCH (20:35)
[2020-10-29] MEDS: METOPROLOL SUCCINATE 25 MG TAB XL PO SCH (20:35)
[2020-10-29] MEDS: MELATONIN 5 MG TABLET PO SCH (20:35)
[2020-10-29] MEDS: INSULIN GLARGINE 100 UNITS/ML VIAL SQ SCH (20:36)
[2020-10-29] MEDS: ONDANSETRON HCL INJ 2MG/ML 2ML 2 MG/ML VIAL IV PRN (21:30)
[2020-10-30] VITALS (8 sets, daily range): BP systolic 155–184; BP diastolic 60–77
[2020-10-30] MEDS: SODIUM CHLORIDE 0.9% 1000ML 1,000 ML IV SCH ×4 (01:30→21:30)
[2020-10-30] MEDS: AZTREONAM 1 GM/NS 50 ML 50 ML IV SCH ×3 (05:32→22:52)
[2020-10-30] MEDS ORDERED: HYDROCODONE/APAP 7.5MG-325MG 1 EA TAB PO PRN (06:30)
[2020-10-30] MEDS: INSULIN LISPRO 100 UNIT/1 ML 3ML VIAL SQ SCH ×4 (07:30→20:42)
[2020-10-30] MEDS: DICYCLOMINE HCL 20 MG TAB PO SCH (08:37)
[2020-10-30] MEDS: VALSARTAN 160 MG TAB PO SCH (08:37)
[2020-10-30] MEDS: LORATADINE 10 MG TAB PO SCH (08:37)
[2020-10-30] MEDS: GABAPENTIN 100 MG CAP PO SCH ×3 (08:38→20:42)
[2020-10-30] MEDS: TAMSULOSIN HCL 0.4 MG CAP PO SCH (08:38)
[2020-10-30] MEDS: LEVOFLOXACIN 500MG/D5W 100ML 100 ML IV SCH (10:28)
[2020-10-30] MEDS: ONDANSETRON HCL INJ 2MG/ML 2ML 2 MG/ML VIAL IV PRN ×2 (12:18→20:44)
[2020-10-30] MEDS: HYDROMORPHONE 1MG/1ML INJ IV PRN ×2 (12:18→20:44)
[2020-10-30] MEDS: METOPROLOL SUCCINATE 25 MG TAB XL PO SCH (20:42)
[2020-10-30] MEDS: ATORVASTATIN 40 MG TAB PO SCH (20:42)
[2020-10-30] MEDS: MELATONIN 5 MG TABLET PO SCH (20:42)
[2020-10-30] MEDS: INSULIN GLARGINE 100 UNITS/ML VIAL SQ SCH (20:48)
[2020-10-31 00:20] VITALS: BP 154/57
[2020-10-31 04:15] VITALS: BP 139/57
[2020-10-31] MEDS: AZTREONAM 1 GM/NS 50 ML 50 ML IV SCH (05:56)
[2020-10-31] MEDS: SODIUM CHLORIDE 0.9% 1000ML 1,000 ML IV SCH (05:56)
[2020-10-31 07:42] VITALS: BP 155/64
[2020-10-31 07:52] VITALS: BP 155/64
[2020-10-31] MEDS: LORATADINE 10 MG TAB PO SCH (08:39)
[2020-10-31] MEDS: VALSARTAN 160 MG TAB PO SCH (08:39)
[2020-10-31] MEDS: GABAPENTIN 100 MG CAP PO SCH (08:39)
[2020-10-31] MEDS: TAMSULOSIN HCL 0.4 MG CAP PO SCH (08:39)
[2020-10-31] MEDS: DICYCLOMINE HCL 20 MG TAB PO SCH (08:39)
[2020-10-31] MEDS: HYDROMORPHONE 1MG/1ML INJ IV PRN (08:40)
[2020-10-31] MEDS: ONDANSETRON HCL INJ 2MG/ML 2ML 2 MG/ML VIAL IV PRN (08:40)
[2020-10-31] MEDS ORDERED: HYDROCODON-ACE1 EA12 PO (09:21)
[2020-10-31] MEDS: LEVOFLOXACIN 500MG/D5W 100ML 100 ML IV SCH (09:30)
== END 2020-10-31 10:22 | disposition home or self-care (01) | DRG 354 ==
LOC: ER 13:56 → ERHOLD 16:38 → MED/SURG3 19:58 → OBSVTOIN 10-24 16:49
PROVIDERS: ADMIT Internal Medicine; ATTEND Internal Medicine
PROC: 0T788ZZ Dilation of Bilateral Ureters, Via Natural or Artificial Opening Endoscopic (ICD-10-PCS; 2020-10-27)
PROC: BT141ZZ Fluoroscopy of Kidneys, Ureters and Bladder using Low Osmolar Contrast (ICD-10-PCS; 2020-10-27)
PROC: 0WQF0ZZ Repair Abdominal Wall, Open Approach (ICD-10-PCS; principal; 2020-10-27 12:00)
PROC: 0TJB0ZZ Inspection of Bladder, Open Approach (ICD-10-PCS; 2020-10-27 12:00)
DX: K43.0 Incisional hernia with obstruction, without gangrene (principal); N39.0 Urinary tract infection, site not specified; E87.1 Hypo-osmolality and hyponatremia; N17.9 Acute kidney failure, unspecified; I25.10 Atherosclerotic heart disease of native coronary artery without angina pectoris; Z95.1 Presence of aortocoronary bypass graft; B96.1 Klebsiella pneumoniae [K. pneumoniae] as the cause of diseases classified elsewhere; E11.9 Type 2 diabetes mellitus without complications; R32 Unspecified urinary incontinence; E66.9 Obesity, unspecified; Z68.31 Body mass index [BMI] 31.0-31.9, adult; E87.5 Hyperkalemia; N81.10 Cystocele, unspecified; N81.6 Rectocele; Z20.822 Contact with and (suspected) exposure to COVID-19
CPT/HCPCS: 36415; 71045; 74177; 74420; 80048; 80053; 80061; 82550; 82553; 82948; 83036; 83690; 84484; 85025; 87086; 87186; 88302; 93005; 93306; 96361; 99284; C1758; G0378; J0330; J0360; J1170; J1815; J1956; J2001; J2270; J2405; J3010; J7030; J7050; Q9967; U0002

== ENCOUNTER 2020-12-12 08:25 | Inpatient (IN) | payer OTHER, MEDICARE ==
[2020-12-08 12:35] LABS: BASOPHILS # (AUTO) 0.1 (0.0-0.1); BASOPHILS % 0.6 % (0.0-1.0); EOSINOPHILS # (AUTO) 0.3 (0.0-0.4); EOSINOPHILS % 3.1 % (0.0-6.0); HEMOGLOBIN 13.9 g/dL (12.0-16.0); LYMPHOCYTES # (AUTO) 2.6 (1.0-3.2); LYMPHOCYTES % 32.1 % (18.0-39.1); MEAN CORPUSCULAR HEMOGLOBIN 30.3 pg (28-32); MEAN CORPUSCULAR HGB CONC 33.1 g/dL (31-35); MEAN CORPUSCULAR VOLUME 91.7 fL (81-99); MONOCYTES # (AUTO) 0.4 (0.2-0.8); NEUTROPHILS # (AUTO) 4.8 (2.1-6.9); PLATELET COUNT 274 x10e3/uL (140-360); RED BLOOD COUNT 4.58 x10e6/uL (3.6-5.1); RED CELL DISTRIBUTION WIDTH 12.7 % (11.7-14.4)
[2020-12-08 13:08] LABS: ANION GAP 15.8 mmol/L (8-16); CREATININE, SERUM 1.03 mg/dL (0.57-1.11); POTASSIUM 4.8 mmol/L (3.5-5.1)
[~2020-12-12] VITALS: Ht 149.9 cm; Wt 61.5 kg
[~2020-12-12 08:25] MED LIST changes: +ASPIRIN81 MG PO; +BACLOFEN20 MG PO; +CLARITIN10 MG PO; +DICYCLOMINE HCL20 MG PO; +FLOMAX0.4 MG PO; +FOLIC ACID0.4 MG PO; +HYDROCODON-ACE1 EA12 PO; +MELATONIN3 M1 PO; +NEURONTIN100 MG PO; +NITROGLYCERIN0.4 MG SL; +PANTOPRAZOLE SO20 MG PO; +PROPRANOLOL HCL10 MG PO; +TRAZODONE HCL50 MG PO; +TYLENOL325 MG PO
[2020-12-12] MEDS ORDERED: INSULIN REGULAR, HUMAN 100 UNIT/1 ML ONE (09:11)
[2020-12-12] MEDS ORDERED: BUPIVACAINE HCL 0.5% INJ 30 ML VIAL INJ ONE (09:14)
[2020-12-12] MEDS ORDERED: SODIUM CHLORIDE 0.9% 250ML 250 ML ONE (10:48)
[2020-12-12] MEDS ORDERED: Vancomycin IV 1 GM VIAL ONE (10:48)
[2020-12-12] MEDS ORDERED: FENTANYL CITRATE/PF 100MCG/2 ML INJ ONE ×2 (10:56→11:31)
[2020-12-12] MEDS ORDERED: MIDAZOLAM HCL 2 MG/2 ML VIAL ONE (10:56)
[2020-12-12] MEDS ORDERED: SUGAMMADEX SODIUM 200 MG/2 ML VIAL IV ONE (11:15)
[2020-12-12] MEDS ORDERED: MORPHINE SULFATE 1 MG/ML 30ML PCA ONE (11:35)
[2020-12-12] MEDS ORDERED: POVIDONE IODINE 0.05% 0.05 % ML PO ONE (13:09)
[2020-12-12] MEDS ORDERED: PROPOFOL IV EMULSION 10 MG/ML 20 ML VIAL ONE (13:09)
[2020-12-12] MEDS ORDERED: DESFLURANE 240 ML BTL INH ONE (13:09)
[2020-12-12] MEDS ORDERED: ROCURONIUM BROMIDE 10 MG/ML 5ML VIAL IV ONE (13:09)
[2020-12-12] MEDS ORDERED: ONDANSETRON HCL INJ 2MG/ML 2ML 2 MG/ML VIAL ONE (13:09)
[2020-12-12] MEDS ORDERED: LIDOCAINE HCL 2% LOCAL INJ 5 ML SDV VIAL INJ ONE (13:09)
[2020-12-12] MEDS ORDERED: DEXTROSE 50% SYRINGE 50 ML IV PRN (15:30)
[2020-12-12] MEDS ORDERED: NALOXONE HCL INJ 0.4 MG/ML AMP IV PRN (15:30)
[2020-12-12 16:21] VITALS: BP 175/65
[2020-12-12] MEDS ORDERED: INSULIN REGULAR, HUMAN 100 UNIT/1 ML SQ SCH (16:30)
[2020-12-12] MEDS: MORPHINE SULFATE 1 MG/ML 30ML PCA IV PRN (17:05)
[2020-12-12] MEDS: SODIUM CHLORIDE 0.9% 1000ML 1,000 ML IV SCH (17:14)
[2020-12-12] MEDS: ONDANSETRON HCL INJ 2MG/ML 2ML 2 MG/ML VIAL IV PRN ×2 (17:15→21:54)
[2020-12-12] MEDS: INSULIN REGULAR, HUMAN 100 UNIT/1 ML SQ SCH (17:16)
[2020-12-12 20:00] VITALS: BP 179/65
[2020-12-12] MEDS ORDERED: INSULIN GLARGINE SC SCH (21:00)
[2020-12-12] MEDS ORDERED: ATORVASTATIN 20 MG TAB PO SCH (21:00)
[2020-12-12 21:10] VITALS: BP 179/65
[2020-12-12] MEDS: TRAZODONE HCL 50 MG TAB PO SCH (21:10)
[2020-12-12] MEDS: INSULIN GLARGINE 100 UNITS/ML VIAL SQ SCH (21:10)
[2020-12-12] MEDS: ATORVASTATIN 40 MG TAB PO SCH (21:10)
[2020-12-12] MEDS: METOPROLOL SUCCINATE 25 MG TAB XL PO SCH (21:10)
[2020-12-12] MEDS: BACLOFEN 10 MG TAB PO PRN (21:54)
[2020-12-12] MEDS ORDERED: DIPHENHYDRAMINE HCL 25 MG CAP PO PRN (23:00)
[2020-12-12] MEDS ORDERED: CEPACOL SORE THROAT LOZENGES PO PRN (23:00)
[2020-12-12 23:24] VITALS: BP 171/74
[2020-12-13] VITALS (9 sets, daily range): BP systolic 142–208; BP diastolic 52–77
[2020-12-13] MEDS: MORPHINE SULFATE 1 MG/ML 30ML PCA IV PRN (00:55)
[2020-12-13] MEDS: SODIUM CHLORIDE 0.9% 1000ML 1,000 ML IV SCH ×3 (03:30→21:50)
[2020-12-13] MEDS: INSULIN REGULAR, HUMAN 100 UNIT/1 ML SQ SCH ×5 (06:45→20:29)
[2020-12-13] MEDS ORDERED: NON-FORMULARY MEDICATION (Pantoprazole Sodium 40 MG) PO SCH (09:00)
[2020-12-13] MEDS ORDERED: NON-FORMULARY MEDICATION (Folic Acid* 1 MG) PO SCH (09:00)
[2020-12-13] MEDS: PANTOPRAZOLE SOD 40 MG TABEC PO SCH (09:15)
[2020-12-13] MEDS: DICYCLOMINE HCL 20 MG TAB PO SCH (09:15)
[2020-12-13] MEDS: DULOXETINE HCL 30 MG DELAYED RELEASE PO SCH (09:15)
[2020-12-13] MEDS: ASPIRIN 81 MG CHEW TAB PO SCH (09:15)
[2020-12-13] MEDS: FOLIC ACID 1 MG TAB PO SCH (09:15)
[2020-12-13] MEDS: VALSARTAN 80 MG TAB PO SCH (09:15)
[2020-12-13 10:06] LABS: HEMATOCRIT 32.1 % (34.2-44.1); HEMOGLOBIN 10.5 g/dL (12.0-16.0); MEAN CORPUSCULAR HEMOGLOBIN 30.5 pg (28-32); MEAN CORPUSCULAR HGB CONC 32.7 g/dL (31-35); MEAN CORPUSCULAR VOLUME 93.3 fL (81-99); PLATELET COUNT 169 x10e3/uL (140-360); RED BLOOD COUNT 3.44 x10e6/uL (3.6-5.1); RED CELL DISTRIBUTION WIDTH 12.7 % (11.7-14.4)
[2020-12-13 10:18] LABS: ALBUMIN 2.8 g/dL (3.5-5.0); ALBUMIN/GLOBULIN RATIO 0.9 (0.8-2.0); ANION GAP 8.9 mmol/L (8-16); CALCIUM 8.7 mg/dL (8.4-10.2); CREATININE, SERUM 0.84 mg/dL (0.57-1.11); POTASSIUM 4.9 mmol/L (3.5-5.1)
[2020-12-13 11:57] LABS: MONOCYTES % (MANUAL) 9 % (3.4-9.0); NEUTROPHILS % (MANUAL) 69 % (40-74); PLATELET ESTIMATE ADEQUATE; PLATELET MORPHOLOGY COMMENT NORMAL; RBC MORPHOLOGY COMMENT NORMAL
[2020-12-13 11:58] LABS: EOSINOPHILS % (MANUAL) 3 % (0-7); LYMPHOCYTES % (MANUAL) 18 % (19-48)
[2020-12-13] MEDS: BACLOFEN 10 MG TAB PO PRN (12:09)
[2020-12-13] MEDS: ONDANSETRON HCL INJ 2MG/ML 2ML 2 MG/ML VIAL IV PRN ×2 (12:09→17:10)
[2020-12-13] MEDS: LORAZEPAM 0.5 MG TAB PO PRN (18:32)
[2020-12-13] MEDS: ATORVASTATIN 40 MG TAB PO SCH (20:28)
[2020-12-13] MEDS: TRAZODONE HCL 50 MG TAB PO SCH (20:28)
[2020-12-13] MEDS: METOPROLOL SUCCINATE 25 MG TAB XL PO SCH (20:28)
[2020-12-13] MEDS: INSULIN GLARGINE 100 UNITS/ML VIAL SQ SCH (20:29)
[2020-12-14] MEDS: CLONIDINE HCL 0.1 MG TAB PO PRN ×3 (00:03→12:00)
[2020-12-14 05:06] VITALS: BP 224/76
[2020-12-14] MEDS: MORPHINE SULFATE 1 MG/ML 30ML PCA IV PRN (07:08)
[2020-12-14] MEDS: INSULIN REGULAR, HUMAN 100 UNIT/1 ML SQ SCH ×4 (07:30→20:59)
[2020-12-14 07:56] VITALS: BP 205/58
[2020-12-14] MEDS: SUCRALFATE 1 GM TAB PO SCH ×4 (08:30→20:57)
[2020-12-14] MEDS: PANTOPRAZOLE SOD 40 MG TABEC PO SCH (08:30)
[2020-12-14] MEDS: ASPIRIN 81 MG CHEW TAB PO SCH (08:31)
[2020-12-14] MEDS: SODIUM CHLORIDE 0.9% 1000ML 1,000 ML IV SCH ×2 (08:31→18:22)
[2020-12-14] MEDS: VALSARTAN 80 MG TAB PO SCH (08:32)
[2020-12-14] MEDS: DULOXETINE HCL 30 MG DELAYED RELEASE PO SCH (08:32)
[2020-12-14] MEDS: DICYCLOMINE HCL 20 MG TAB PO SCH (08:32)
[2020-12-14] MEDS: FOLIC ACID 1 MG TAB PO SCH (08:33)
[2020-12-14] MEDS ORDERED: VALSARTAN 80 MG TAB PO ONE (09:30)
[2020-12-14 11:30] VITALS: BP 191/62
[2020-12-14 16:17] VITALS: BP 173/69
[2020-12-14 19:56] VITALS: BP 216/76
[2020-12-14 20:00] VITALS: BP 216/76
[2020-12-14] MEDS: TRAZODONE HCL 50 MG TAB PO SCH (20:57)
[2020-12-14] MEDS: ATORVASTATIN 40 MG TAB PO SCH (20:57)
[2020-12-14] MEDS: METOPROLOL SUCCINATE 25 MG TAB XL PO SCH (20:58)
[2020-12-14] MEDS: INSULIN GLARGINE 100 UNITS/ML VIAL SQ SCH (20:59)
[2020-12-15] VITALS (9 sets, daily range): BP systolic 169–223; BP diastolic 52–75
[2020-12-15] MEDS: MORPHINE SULFATE 1 MG/ML 30ML PCA IV PRN (01:03)
[2020-12-15] MEDS: BACLOFEN 10 MG TAB PO PRN ×2 (02:17→09:17)
[2020-12-15] MEDS: LORAZEPAM 0.5 MG TAB PO PRN ×2 (02:22→09:17)
[2020-12-15] MEDS: SODIUM CHLORIDE 0.9% 1000ML 1,000 ML IV SCH ×2 (04:10→16:19)
[2020-12-15] MEDS: CLONIDINE HCL 0.1 MG TAB PO PRN ×3 (05:06→20:12)
[2020-12-15 06:06] LABS: HEMATOCRIT 34.5 % (34.2-44.1); HEMOGLOBIN 11.3 g/dL (12.0-16.0); MEAN CORPUSCULAR HEMOGLOBIN 30.5 pg (28-32); MEAN CORPUSCULAR HGB CONC 32.8 g/dL (31-35); MEAN CORPUSCULAR VOLUME 93.2 fL (81-99); PLATELET COUNT 177 x10e3/uL (140-360); RED CELL DISTRIBUTION WIDTH 12.6 % (11.7-14.4)
[2020-12-15 06:25] LABS: ANION GAP 10.9 mmol/L (8-16); CALCIUM 7.8 mg/dL (8.4-10.2); CREATININE, SERUM 0.76 mg/dL (0.57-1.11); POTASSIUM 3.9 mmol/L (3.5-5.1)
[2020-12-15] MEDS ORDERED: VALSARTAN 80 MG TAB PO SCH (09:00)
[2020-12-15] MEDS: ASPIRIN 81 MG CHEW TAB PO SCH (09:17)
[2020-12-15] MEDS: PANTOPRAZOLE SOD 40 MG TABEC PO SCH (09:17)
[2020-12-15] MEDS: FOLIC ACID 1 MG TAB PO SCH (09:17)
[2020-12-15] MEDS: DULOXETINE HCL 30 MG DELAYED RELEASE PO SCH (09:17)
[2020-12-15] MEDS: DICYCLOMINE HCL 20 MG TAB PO SCH (09:17)
[2020-12-15] MEDS: SUCRALFATE 1 GM TAB PO SCH ×4 (09:17→20:11)
[2020-12-15] MEDS: INSULIN REGULAR, HUMAN 100 UNIT/1 ML SQ SCH ×4 (10:22→21:56)
[2020-12-15 10:44] LABS: EOSINOPHILS % (MANUAL) 7 % (0-7); LYMPHOCYTES % (MANUAL) 22 % (19-48); MONOCYTES % (MANUAL) 5 % (3.4-9.0); NEUTROPHILS % (MANUAL) 66 % (40-74); PLATELET ESTIMATE ADEQUATE; PLATELET MORPHOLOGY COMMENT NORMAL; RBC MORPHOLOGY COMMENT NORMAL
[2020-12-15] MEDS: KETOROLAC TROMETHAMINE 30 MG/ML VIAL IV SCH ×3 (11:48→23:51)
[2020-12-15] MEDS: ATORVASTATIN 40 MG TAB PO SCH (20:11)
[2020-12-15] MEDS: TRAZODONE HCL 50 MG TAB PO SCH (20:11)
[2020-12-15] MEDS: METOPROLOL SUCCINATE 25 MG TAB XL PO SCH (20:12)
[2020-12-15] MEDS: INSULIN GLARGINE 100 UNITS/ML VIAL SQ SCH (21:56)
[2020-12-16] VITALS (12 sets, daily range): BP systolic 129–199; BP diastolic 58–95
[2020-12-16] MEDS: KETOROLAC TROMETHAMINE 30 MG/ML VIAL IV SCH ×4 (05:34→23:30)
[2020-12-16] MEDS: MORPHINE SULFATE INJ 4 MG/ML INJ 1ML IV PRN ×3 (05:51→19:52)
[2020-12-16] MEDS: ONDANSETRON HCL INJ 2MG/ML 2ML 2 MG/ML VIAL IV PRN ×2 (05:52→19:52)
[2020-12-16] MEDS: CLONIDINE HCL 0.1 MG TAB PO PRN ×2 (05:52→15:11)
[2020-12-16] MEDS: INSULIN REGULAR, HUMAN 100 UNIT/1 ML SQ SCH ×4 (07:30→21:44)
[2020-12-16] MEDS: SUCRALFATE 1 GM TAB PO SCH ×4 (07:34→20:14)
[2020-12-16] MEDS: PANTOPRAZOLE SOD 40 MG TABEC PO SCH (07:34)
[2020-12-16] MEDS: DICYCLOMINE HCL 20 MG TAB PO SCH (08:38)
[2020-12-16] MEDS: FOLIC ACID 1 MG TAB PO SCH (08:38)
[2020-12-16] MEDS: ASPIRIN 81 MG CHEW TAB PO SCH (08:38)
[2020-12-16] MEDS: DULOXETINE HCL 30 MG DELAYED RELEASE PO SCH (08:38)
[2020-12-16] MEDS: HYDROCODONE/APAP 7.5MG-325MG 1 EA TAB PO PRN (09:36)
[2020-12-16] MEDS: SODIUM CHLORIDE 0.9% 1000ML 1,000 ML IV SCH ×3 (10:02→20:17)
[2020-12-16] MEDS: BACLOFEN 10 MG TAB PO PRN (11:46)
[2020-12-16] MEDS: ATORVASTATIN 40 MG TAB PO SCH (20:14)
[2020-12-16] MEDS: TRAZODONE HCL 50 MG TAB PO SCH (20:14)
[2020-12-16] MEDS: METOPROLOL SUCCINATE 25 MG TAB XL PO SCH (20:15)
[2020-12-16] MEDS: INSULIN GLARGINE 100 UNITS/ML VIAL SQ SCH (21:44)
[2020-12-17] VITALS (8 sets, daily range): BP systolic 158–198; BP diastolic 58–75
[2020-12-17] MEDS: ONDANSETRON HCL INJ 2MG/ML 2ML 2 MG/ML VIAL IV PRN ×5 (00:07→16:51)
[2020-12-17] MEDS: MORPHINE SULFATE INJ 4 MG/ML INJ 1ML IV PRN ×6 (00:07→20:23)
[2020-12-17] MEDS: KETOROLAC TROMETHAMINE 30 MG/ML VIAL IV SCH (05:28)
[2020-12-17] MEDS: SODIUM CHLORIDE 0.9% 1000ML 1,000 ML IV SCH ×2 (06:00→16:51)
[2020-12-17] MEDS: INSULIN REGULAR, HUMAN 100 UNIT/1 ML SQ SCH ×4 (07:30→21:37)
[2020-12-17] MEDS: PANTOPRAZOLE SOD 40 MG TABEC PO SCH (08:15)
[2020-12-17] MEDS: ASPIRIN 81 MG CHEW TAB PO SCH (08:15)
[2020-12-17] MEDS: SUCRALFATE 1 GM TAB PO SCH ×4 (08:15→21:09)
[2020-12-17] MEDS: FOLIC ACID 1 MG TAB PO SCH (08:16)
[2020-12-17] MEDS: DULOXETINE HCL 30 MG DELAYED RELEASE PO SCH (08:16)
[2020-12-17] MEDS: DICYCLOMINE HCL 20 MG TAB PO SCH (08:16)
[2020-12-17] MEDS: TRAZODONE HCL 50 MG TAB PO SCH (21:09)
[2020-12-17] MEDS: ATORVASTATIN 40 MG TAB PO SCH (21:09)
[2020-12-17] MEDS: METOPROLOL SUCCINATE 25 MG TAB XL PO SCH (21:10)
[2020-12-17] MEDS: INSULIN GLARGINE 100 UNITS/ML VIAL SQ SCH (21:45)
[2020-12-18] VITALS (8 sets, daily range): BP systolic 162–215; BP diastolic 62–83
[2020-12-18] MEDS: MORPHINE SULFATE INJ 4 MG/ML INJ 1ML IV PRN ×6 (00:08→19:33)
[2020-12-18] MEDS: CLONIDINE HCL 0.1 MG TAB PO PRN ×3 (00:56→16:12)
[2020-12-18] MEDS: BACLOFEN 10 MG TAB PO PRN ×3 (00:59→15:56)
[2020-12-18] MEDS: LORAZEPAM 0.5 MG TAB PO PRN ×2 (00:59→21:33)
[2020-12-18] MEDS: SODIUM CHLORIDE 0.9% 1000ML 1,000 ML IV SCH (03:39)
[2020-12-18] MEDS: ONDANSETRON HCL INJ 2MG/ML 2ML 2 MG/ML VIAL IV PRN ×4 (05:24→19:33)
[2020-12-18] MEDS ORDERED: SODIUM CHLORIDE FLUSH 10 ML SYR INJ PRN (06:30)
[2020-12-18] MEDS: SUCRALFATE 1 GM TAB PO SCH ×4 (07:30→21:32)
[2020-12-18] MEDS: PANTOPRAZOLE SOD 40 MG TABEC PO SCH (07:30)
[2020-12-18] MEDS: INSULIN REGULAR, HUMAN 100 UNIT/1 ML SQ SCH ×4 (07:30→21:36)
[2020-12-18] MEDS: DICYCLOMINE HCL 20 MG TAB PO SCH (08:58)
[2020-12-18] MEDS: ASPIRIN 81 MG CHEW TAB PO SCH (08:58)
[2020-12-18] MEDS: FOLIC ACID 1 MG TAB PO SCH (08:59)
[2020-12-18] MEDS: DULOXETINE HCL 30 MG DELAYED RELEASE PO SCH (08:59)
[2020-12-18] MEDS: TRAZODONE HCL 50 MG TAB PO SCH (21:32)
[2020-12-18] MEDS: METOPROLOL SUCCINATE 25 MG TAB XL PO SCH (21:32)
[2020-12-18] MEDS: ATORVASTATIN 40 MG TAB PO SCH (21:32)
[2020-12-18] MEDS: INSULIN GLARGINE 100 UNITS/ML VIAL SQ SCH (21:35)
[2020-12-19] VITALS (9 sets, daily range): BP systolic 165–201; BP diastolic 68–80
[2020-12-19 06:06] LABS: HEMATOCRIT 32.7 % (34.2-44.1); HEMOGLOBIN 10.9 g/dL (12.0-16.0); MEAN CORPUSCULAR HEMOGLOBIN 30.2 pg (28-32); MEAN CORPUSCULAR HGB CONC 33.3 g/dL (31-35); MEAN CORPUSCULAR VOLUME 90.6 fL (81-99); PLATELET COUNT 221 x10e3/uL (140-360); RED BLOOD COUNT 3.61 x10e6/uL (3.6-5.1)
[2020-12-19 06:23] LABS: ANION GAP 12.5 mmol/L (8-16); CALCIUM 8.6 mg/dL (8.4-10.2); CREATININE, SERUM 0.82 mg/dL (0.57-1.11); POTASSIUM 3.5 mmol/L (3.5-5.1)
[2020-12-19] MEDS: CLONIDINE HCL 0.1 MG TAB PO PRN (06:23)
[2020-12-19] MEDS: INSULIN REGULAR, HUMAN 100 UNIT/1 ML SQ SCH ×4 (07:30→21:47)
[2020-12-19] MEDS: PANTOPRAZOLE SOD 40 MG TABEC PO SCH (07:30)
[2020-12-19] MEDS: SUCRALFATE 1 GM TAB PO SCH ×4 (07:30→21:45)
[2020-12-19] MEDS: DULOXETINE HCL 30 MG DELAYED RELEASE PO SCH (08:58)
[2020-12-19] MEDS: DICYCLOMINE HCL 20 MG TAB PO SCH (08:58)
[2020-12-19] MEDS: VALSARTAN 80 MG TAB PO SCH ×2 (08:58→16:21)
[2020-12-19] MEDS: ASPIRIN 81 MG CHEW TAB PO SCH (08:58)
[2020-12-19] MEDS: FOLIC ACID 1 MG TAB PO SCH (08:59)
[2020-12-19] MEDS ORDERED: ASPIRIN 81 MG CHEW TAB PO ONE (09:00)
[2020-12-19 10:06] LABS: EOSINOPHILS % (MANUAL) 1 % (0-7); LYMPHOCYTES % (MANUAL) 12 % (19-48); MONOCYTES % (MANUAL) 13 % (3.4-9.0); NEUTROPHILS % (MANUAL) 74 % (40-74)
[2020-12-19 10:11] LABS: PLATELET ESTIMATE ADEQUATE; PLATELET MORPHOLOGY COMMENT NORMAL; RBC MORPHOLOGY COMMENT NORMAL
[2020-12-19 10:37] LABS: CREATINE KINASE MB 1.2 ng/mL (0-5.0)
[2020-12-19] MEDS: MORPHINE SULFATE INJ 4 MG/ML INJ 1ML IV PRN ×3 (13:58→23:06)
[2020-12-19] MEDS: BACLOFEN 10 MG TAB PO PRN ×2 (14:13→23:05)
[2020-12-19] MEDS: ONDANSETRON HCL INJ 2MG/ML 2ML 2 MG/ML VIAL IV PRN ×2 (14:13→19:54)
[2020-12-19] MEDS: HYDRALAZINE HCL 25 MG TAB PO SCH (17:03)
[2020-12-19] MEDS: TRAZODONE HCL 50 MG TAB PO SCH (21:45)
[2020-12-19] MEDS: ATORVASTATIN 40 MG TAB PO SCH (21:45)
[2020-12-19] MEDS: INSULIN GLARGINE 100 UNITS/ML VIAL SQ SCH (21:47)
[2020-12-20] VITALS (8 sets, daily range): BP systolic 145–188; BP diastolic 53–73
[2020-12-20] MEDS: HYDRALAZINE HCL 25 MG TAB PO SCH ×4 (00:29→17:03)
[2020-12-20] MEDS: ONDANSETRON HCL INJ 2MG/ML 2ML 2 MG/ML VIAL IV PRN ×2 (04:09→21:17)
[2020-12-20] MEDS: MORPHINE SULFATE INJ 4 MG/ML INJ 1ML IV PRN ×2 (04:09→21:17)
[2020-12-20] MEDS: METOCLOPRAMIDE HCL 10 MG/2ML VIAL IV SCH ×3 (05:26→17:03)
[2020-12-20 06:01] LABS: BASOPHILS # (AUTO) 0.1 (0.0-0.1); BASOPHILS % 0.5 % (0.0-1.0); EOSINOPHILS # (AUTO) 0.3 (0.0-0.4); EOSINOPHILS % 3.4 % (0.0-6.0); HEMATOCRIT 31.1 % (34.2-44.1); HEMOGLOBIN 10.5 g/dL (12.0-16.0); LYMPHOCYTES # (AUTO) 1.5 (1.0-3.2); LYMPHOCYTES % 15.5 % (18.0-39.1); MEAN CORPUSCULAR HEMOGLOBIN 30.6 pg (28-32); MEAN CORPUSCULAR HGB CONC 33.8 g/dL (31-35); MEAN CORPUSCULAR VOLUME 90.7 fL (81-99); MONOCYTES # (AUTO) 0.9 (0.2-0.8); MONOCYTES % 9.2 % (4.4-11.3); PLATELET COUNT 233 x10e3/uL (140-360); RED BLOOD COUNT 3.43 x10e6/uL (3.6-5.1); RED CELL DISTRIBUTION WIDTH 12.2 % (11.7-14.4)
[2020-12-20] MEDS ORDERED: BISACODYL 10 MG SUPP PR ONE (06:15)
[2020-12-20 06:26] LABS: ALBUMIN 2.1 g/dL (3.5-5.0); ALBUMIN/GLOBULIN RATIO 0.5 (0.8-2.0); ANION GAP 10.1 mmol/L (8-16); CALCIUM 8.5 mg/dL (8.4-10.2); CREATININE, SERUM 0.85 mg/dL (0.57-1.11); POTASSIUM 3.1 mmol/L (3.5-5.1)
[2020-12-20] MEDS: INSULIN REGULAR, HUMAN 100 UNIT/1 ML SQ SCH ×4 (07:26→21:28)
[2020-12-20] MEDS: PANTOPRAZOLE SOD 40 MG TABEC PO SCH (07:26)
[2020-12-20] MEDS: SUCRALFATE 1 GM TAB PO SCH ×4 (07:26→21:20)
[2020-12-20] MEDS: VALSARTAN 80 MG TAB PO SCH ×2 (07:39→17:03)
[2020-12-20] MEDS: NIFEDIPINE CR 30 MG TAB PO SCH (07:39)
[2020-12-20] MEDS ORDERED: POTASSIUM CHLORIDE 20 MEQ TAB CR PO ONE (08:00)
[2020-12-20] MEDS ORDERED: PROPOFOL IV EMULSION 10 MG/ML 20 ML VIAL ONE (16:08)
[2020-12-20] MEDS: DICYCLOMINE HCL 20 MG TAB PO SCH (17:02)
[2020-12-20] MEDS: ASPIRIN 81 MG CHEW TAB PO SCH (17:02)
[2020-12-20] MEDS: FOLIC ACID 1 MG TAB PO SCH (17:02)
[2020-12-20] MEDS: DULOXETINE HCL 30 MG DELAYED RELEASE PO SCH (17:02)
[2020-12-20] MEDS: HYDROCODONE/APAP 7.5MG-325MG 1 EA TAB PO PRN (17:30)
[2020-12-20] MEDS: TRAZODONE HCL 50 MG TAB PO SCH (21:20)
[2020-12-20] MEDS: ATORVASTATIN 40 MG TAB PO SCH (21:20)
[2020-12-20] MEDS: INSULIN GLARGINE 100 UNITS/ML VIAL SQ SCH (21:28)
[2020-12-21 00:02] VITALS: BP 140/53
[2020-12-21] MEDS: METOCLOPRAMIDE HCL 10 MG/2ML VIAL IV SCH ×2 (00:16→05:29)
[2020-12-21] MEDS: HYDRALAZINE HCL 25 MG TAB PO SCH ×2 (00:17→05:30)
[2020-12-21] MEDS: HYDROCODONE/APAP 7.5MG-325MG 1 EA TAB PO PRN (03:18)
[2020-12-21] MEDS: MORPHINE SULFATE INJ 4 MG/ML INJ 1ML IV PRN (04:23)
[2020-12-21 05:22] VITALS: BP 143/48
[2020-12-21 05:35] LABS: HEMATOCRIT 30.6 % (34.2-44.1); HEMOGLOBIN 10.1 g/dL (12.0-16.0); MEAN CORPUSCULAR HEMOGLOBIN 30.1 pg (28-32); MEAN CORPUSCULAR VOLUME 91.3 fL (81-99); PLATELET COUNT 264 x10e3/uL (140-360); RED BLOOD COUNT 3.35 x10e6/uL (3.6-5.1); RED CELL DISTRIBUTION WIDTH 12.3 % (11.7-14.4)
[2020-12-21 06:15] LABS: ANION GAP 14.5 mmol/L (8-16); CALCIUM 8.2 mg/dL (8.4-10.2); CREATININE, SERUM 0.87 mg/dL (0.57-1.11); POTASSIUM 3.5 mmol/L (3.5-5.1)
[2020-12-21] MEDS ORDERED: HYDRALAZINE HCL25 MG PO (06:34)
[2020-12-21] MEDS ORDERED: HYDROCODON-ACE1 EA12 PO (06:34)
[2020-12-21 07:27] VITALS: BP 151/57
[2020-12-21] MEDS: INSULIN REGULAR, HUMAN 100 UNIT/1 ML SQ SCH (07:36)
[2020-12-21] MEDS: SUCRALFATE 1 GM TAB PO SCH (07:37)
[2020-12-21 08:10] VITALS: BP 151/57
[2020-12-21] MEDS: DULOXETINE HCL 30 MG DELAYED RELEASE PO SCH (08:49)
[2020-12-21] MEDS: FOLIC ACID 1 MG TAB PO SCH (08:49)
[2020-12-21] MEDS: DICYCLOMINE HCL 20 MG TAB PO SCH (08:49)
[2020-12-21] MEDS: ASPIRIN 81 MG CHEW TAB PO SCH (08:49)
[2020-12-21] MEDS: VALSARTAN 80 MG TAB PO SCH (08:50)
[2020-12-21] MEDS: NIFEDIPINE CR 30 MG TAB PO SCH (08:51)
== END 2020-12-21 09:10 | disposition home or self-care (01) | DRG 355 ==
LOC: OR 08:25 → PACU V 11:10 → MED/SURG 13:47
PROVIDERS: ADMIT Surgery; ATTEND Surgery
PROC: 0WUF0JZ Supplement Abdominal Wall with Synthetic Substitute, Open Approach (ICD-10-PCS; principal; 2020-12-12 11:00)
PROC: 0DB98ZX Excision of Duodenum, Via Natural or Artificial Opening Endoscopic, Diagnostic (ICD-10-PCS; 2020-12-20)
PROC: 0DB68ZX Excision of Stomach, Via Natural or Artificial Opening Endoscopic, Diagnostic (ICD-10-PCS; 2020-12-20)
DX: K43.0 Incisional hernia with obstruction, without gangrene (principal); I10 Essential (primary) hypertension; I16.0 Hypertensive urgency; I25.10 Atherosclerotic heart disease of native coronary artery without angina pectoris; E78.5 Hyperlipidemia, unspecified; E11.65 Type 2 diabetes mellitus with hyperglycemia; K20.90 Esophagitis, unspecified without bleeding; K29.70 Gastritis, unspecified, without bleeding; K44.9 Diaphragmatic hernia without obstruction or gangrene; Z95.1 Presence of aortocoronary bypass graft; Z88.1 Allergy status to other antibiotic agents; Z88.2 Allergy status to sulfonamides; E11.649 Type 2 diabetes mellitus with hypoglycemia without coma; R33.9 Retention of urine, unspecified; F32.9 Major depressive disorder, single episode, unspecified; Z79.82 Long term (current) use of aspirin; Z79.4 Long term (current) use of insulin
CPT/HCPCS: 36415; 43239; 70450; 71046; 74018; 74176; 80048; 80053; 82550; 82553; 82948; 83605; 84484; 85007; 85025; 85027; 88305; 88312; 93005; 96372; 97139; C1781; J1815; J1817; J1885; J2001; J2250; J2270; J2405; J2765; J3010; J3370; J7030; J7050

== ENCOUNTER 2021-08-31 11:06 | Emergency (ER) | payer MEDICARE, OTHER ==
[~2021-08-31] VITALS: Ht 149.9 cm; Wt 61.2 kg
[~2021-08-31 11:06] MED LIST changes: +HYDRALAZINE HCL25 MG PO
[2021-08-31 12:12] LABS: BASOPHILS % 0.7 % (0.0-1.0); EOSINOPHILS # (AUTO) 0.1 (0.0-0.4); EOSINOPHILS % 2.1 % (0.0-6.0); HEMATOCRIT 32.4 % (34.2-44.1); HEMOGLOBIN 10.6 g/dL (12.0-16.0); LYMPHOCYTES % 32.1 % (18.0-39.1); MEAN CORPUSCULAR HEMOGLOBIN 31.3 pg (28-32); MEAN CORPUSCULAR HGB CONC 32.7 g/dL (31-35); MEAN CORPUSCULAR VOLUME 95.6 fL (81-99); MONOCYTES # (AUTO) 0.4 (0.2-0.8); MONOCYTES % 5.9 % (4.4-11.3); NEUTROPHILS # (AUTO) 3.6 (2.1-6.9); PLATELET COUNT 277 x10e3/uL (140-360); RED BLOOD COUNT 3.39 x10e6/uL (3.6-5.1); RED CELL DISTRIBUTION WIDTH 12.5 % (11.7-14.4)
[2021-08-31] MEDS ORDERED: Morphine 4mg Syringe 4 MG/ML INJ IV PRN (12:15)
[2021-08-31] MEDS ORDERED: ONDANSETRON HCL INJ 2MG/ML 2ML 2 MG/ML VIAL IV PRN (12:15)
[2021-08-31] MEDS ORDERED: SODIUM CHLORIDE 0.9% 1000ML 1,000 ML IV ONE (12:15)
[2021-08-31] MEDS ORDERED: HYDRALAZINE HCL 20 MG/ML VIAL IV STA (12:21)
[2021-08-31 12:25] LABS: ALBUMIN 3.5 g/dL (3.5-5.0); ALBUMIN/GLOBULIN RATIO 0.9 (0.8-2.0); ANION GAP 12.2 mmol/L (8-16); CREATININE, SERUM 1.2 mg/dL (0.57-1.11); POTASSIUM 5.2 mmol/L (3.5-5.1)
[2021-08-31 12:40] LABS: CLARITY,URINE CLOUDY (CLEAR); COLOR,URINE YELLOW (YELLOW); KETONES,URINE NEGATIVE (NEGATIVE); LEUKOCYTE ESTERASE ,URINE SMALL (NEGATIVE); NITRITE,URINE POSITIVE (NEGATIVE); PROTEIN,URINE DIPSTICK 2+ (NEGATIVE); URINE UROBILINOGEN 0.2 mg/dL (0.2 - 1)
[2021-08-31] MEDS ORDERED: SODIUM CHLORIDE 0.9% 50ML 50 ML ONE (12:49)
[2021-08-31] MEDS ORDERED: IOPAMIDOL 370 MG/ML 200 ML INFUS..BTL INJ ONE (12:50)
[2021-08-31 12:51] LABS: BACTERIA,URINE MANY /HPF; EPITHELIAL CELLS,URINE RARE /LPF; WBC,URINE (MAN) >50 /HPF (0-5)
[2021-08-31] MEDS ORDERED: CIPRO250 MG PO (13:40)
[2021-08-31] MEDS ORDERED: CIPROFLOXACIN 250 MG TAB PO SCH (14:00)
== END 2021-08-31 13:53 | disposition home or self-care (01) ==
LOC: ER 11:15
DX: R10.32 Left lower quadrant pain (principal); N39.0 Urinary tract infection, site not specified; E11.65 Type 2 diabetes mellitus with hyperglycemia; I10 Essential (primary) hypertension; E78.5 Hyperlipidemia, unspecified; K21.9 Gastro-esophageal reflux disease without esophagitis; F41.9 Anxiety disorder, unspecified; Z20.822 Contact with and (suspected) exposure to COVID-19
CPT/HCPCS: 36415; 74177; 80053; 81001; 85025; 99284; J0360; J2270; J2405; J7030; Q9967; U0002